=== PATIENT | male | born 1960 | race Caucasian/White ===

== ENCOUNTER → 2020-10-27 08:04 | Outpatient (BNVA) | payer MEDICARE, OTHER, SELFPAY | PROVIDERS: PCP Internal Medicine Medical Oncology; Visit Provider Family Medicine Adult Medicine | DX: M54.16 Radiculopathy, lumbar region (principal); M47.816 Spondylosis without myelopathy or radiculopathy, lumbar region | CPT/HCPCS: 99202 ==

== ENCOUNTER → 2020-11-12 08:33 | Outpatient (BNVA) | payer MEDICARE, OTHER, SELFPAY | PROVIDERS: PCP Internal Medicine Medical Oncology; Referring Provider Internal Medicine Medical Oncology; Visit Provider Family Medicine Adult Medicine | DX: M54.16 Radiculopathy, lumbar region (principal); M47.816 Spondylosis without myelopathy or radiculopathy, lumbar region | CPT/HCPCS: 99212 ==

== ENCOUNTER → 2020-11-13 08:48 | Outpatient (BNVA) | payer MEDICARE, OTHER, SELFPAY | PROVIDERS: PCP Internal Medicine Medical Oncology; Visit Provider Family Medicine Adult Medicine | DX: Z51.81 Encounter for therapeutic drug level monitoring (principal); R52 Pain, unspecified | CPT/HCPCS: 99212 ==

== ENCOUNTER → 2020-12-22 08:27 | Outpatient (BNVA) | payer MEDICARE, OTHER, SELFPAY | PROVIDERS: PCP Internal Medicine Medical Oncology; Visit Provider Nurse Practitioner Family | DX: M54.16 Radiculopathy, lumbar region (principal); M47.816 Spondylosis without myelopathy or radiculopathy, lumbar region; Z79.899 Other long term (current) drug therapy | CPT/HCPCS: 99212 ==

== ENCOUNTER → 2021-01-19 08:38 | Outpatient (BNVA) | payer MEDICARE, OTHER, SELFPAY | PROVIDERS: PCP Internal Medicine Medical Oncology; Visit Provider Family Medicine Adult Medicine ==

== ENCOUNTER 2021-02-17 10:31 | Outpatient (REF) | payer MEDICARE, OTHER, SELFPAY | END 2021-02-17 10:32 | disposition home or self-care (01) | LOC: HO.LAB 10:31 | PROVIDERS: Visit Provider Internal Medicine | DX: Z20.822 Contact with and (suspected) exposure to COVID-19 (principal) | CPT/HCPCS: 36415; C9803; U0003; U0005 ==

== ENCOUNTER → 2021-05-24 14:18 | Outpatient (BNVA) | payer MEDICARE, OTHER, SELFPAY | PROVIDERS: PCP Internal Medicine Medical Oncology; Visit Provider Anesthesiology | DX: G89.4 Chronic pain syndrome (principal); M47.26 Other spondylosis with radiculopathy, lumbar region; K85.00 Idiopathic acute pancreatitis without necrosis or infection; Z88.2 Allergy status to sulfonamides; Z91.030 Bee allergy status; Z79.891 Long term (current) use of opiate analgesic | CPT/HCPCS: 99212 ==

== ENCOUNTER → 2021-08-23 16:09 | Outpatient (BNVA) | payer MEDICARE, OTHER, SELFPAY | PROVIDERS: PCP Internal Medicine Medical Oncology; Visit Provider Anesthesiology | DX: K85.00 Idiopathic acute pancreatitis without necrosis or infection (principal); M54.16 Radiculopathy, lumbar region; M47.816 Spondylosis without myelopathy or radiculopathy, lumbar region; G89.4 Chronic pain syndrome; Z79.891 Long term (current) use of opiate analgesic | CPT/HCPCS: 99212 ==

== ENCOUNTER 2021-09-07 06:16 | Outpatient (REF) | payer MEDICARE, OTHER, SELFPAY ==
--- NOTE | ~2021-09-07 | FL_ITS ---
EXAMINATION: XR FLUOROSCOPY WITH IMAGES CLINICAL INFORMATION: Chronic pain syndrome. COMPARISON: MRI of the lumbar spine dated 08/05/2015. TECHNIQUE: Fluoroscopy performed by Dr. Burger. Fluoroscopy time: 0.2 minutes DAP: 2.71 Gycm2 Images: 2 FL/FL guidance in treatment room FINDINGS/IMPRESSION: Fluoroscopy was performed for procedural guidance. Please refer to the procedure report for more detailed findings.
== END 2021-09-07 06:17 | disposition home or self-care (01) ==
LOC: HO.RADIR 06:16
PROVIDERS: Visit Provider Anesthesiology
DX: K85.00 Idiopathic acute pancreatitis without necrosis or infection (principal); M54.16 Radiculopathy, lumbar region; G89.4 Chronic pain syndrome; M47.816 Spondylosis without myelopathy or radiculopathy, lumbar region; Z79.891 Long term (current) use of opiate analgesic
CPT/HCPCS: 62323; J2270; Q9967

== ENCOUNTER 2023-10-26 10:01 | Outpatient (AMB) | payer MEDICARE, OTHER, SELFPAY ==
--- NOTE | 2023-10-26 16:11 | MHC.AM.SUB ---
Intake Intake Visit Reasons: MAT Intake Allergies bee stings Allergy (Unknown, Uncoded 10/27/20 08:13) Anaphylaxis sulfa Allergy (Unknown, Uncoded 10/27/20 08:13) serum sickness Medication List - Last Reconciled 10/26/23 by Briseida Jimenez NP epinephrine IM DIRECTED fentanyl 75 mcg/hr 1 patch transdermal Q72H oxycodone 5 mg PO Q12H PRN 30 days prednisone 5 mg PO DAILY HPI MAT Intake HPI Details Pt presents as a referral from Dr. Downing (PCP) He reports his PCP will soon be retiring and will no longer be able to manage his pain. 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 Review of Systems Const Reports as per HPI GI Reports abdominal pain (chronic) Musc Reports back pain (chronic) Psych Reports no additional complaints Physical Exam Const General: cooperative, healthy appearing and no acute distress Orientation/consciousness: patient oriented x3 Resp Effort & Inspection: normal respiratory effort Neuro General: patient oriented x3 and gait normal Psych Appearance: grossly normal Mental Status: mental status grossly normal Speech and movement: Normal speech and movement present Affect: normal affect Attitude: cooperative Insight: Good insight present (Psych) Judgement: Good judgement present (Psych) Assessment & Plan Assessment & Plan (1) Opioid dependence: Code(s): F11.20 - Opioid dependence, uncomplicated Plan: He is agreeable to starting the standard suboxone induction. He has an apt at [facility] next Monday, plan is to start induction the following day. Narcan provided to pt Suboxone films and comfort meds sent to pharmacy Reviewed and wrote down the plan for induction day- pt to call office before he starts with any questions. Medications: New ondansetron 4 mg PO Q8H PRN 30 tabs 0RF nausea and vomiting hydroxyzine HCl 25 mg PO TID PRN 30 tabs 0RF itching tizanidine 4 mg PO TID PRN 30 caps 0RF muscle spasticity buprenorphine-naloxone 8-2 mg (Suboxone) To be started after induction with 4mg films. 1 film buccal TID 18 ea 0RF clonidine HCl 0.1 mg PO BID 14 tabs 0RF buprenorphine-naloxone 4-1 mg (Suboxone) place 1 strip/tab under (each) side of tongue 1 film buccal Q24H 8 ea 0RF Coding Level of Care Code New Pt Level 4 (21050) Diagnoses Opioid dependence F11.20
== END 2023-10-26 11:18 | disposition home or self-care (01) ==
PROVIDERS: PCP Internal Medicine Medical Oncology; Visit Provider Nurse Practitioner Family
DX: F11.20 Opioid dependence, uncomplicated (principal)
CPT/HCPCS: 99204; 99214

== ENCOUNTER → 2023-10-26 10:01 | Outpatient (BNVA) | payer MEDICARE, OTHER, SELFPAY | PROVIDERS: PCP Internal Medicine Medical Oncology; Visit Provider Nurse Practitioner Family | DX: F11.20 Opioid dependence, uncomplicated (principal) | CPT/HCPCS: 99202 ==

== ENCOUNTER 2023-11-13 10:19 | Outpatient (AMB) | payer MEDICARE, OTHER, SELFPAY ==
--- NOTE | 2023-11-13 10:50 | MHC.AM.SUB ---
Intake Vital Signs 11/13/23 10:51 Respiration 15 Intake Visit Reasons: MAT Visit Allergies bee stings Allergy (Unknown, Uncoded 10/27/20 08:13) Anaphylaxis sulfa Allergy (Unknown, Uncoded 10/27/20 08:13) serum sickness HPI MAT Visit HPI Details Patient presents for MAT treatment and follow up Taking suboxone 8mg bid Reports no cravings at this time Says the suboxone has been helpful for reducing pain. Reports occasional wooziness otherwise no concern for side effects Encouraged pt to try cutting his films and taking 4mg qid to see if that alleviates nausea. Pt agreeable to this. Feels satisfied with his dose at the time and would not like to change it Asking about tapering in the future- he does not feel ready yet but feels as though that is something he would like to do at some point. 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 Review of Systems Const Reports as per HPI GI Reports nausea Physical Exam Const General: cooperative, comfortable and no acute distress Resp Effort & Inspection: normal respiratory effort Skin General skin exam: no rashes or lesions noted Psych Appearance: grossly normal and well kempt Mental Status: mental status grossly normal Speech and movement: Normal speech and movement present Attitude: cooperative Assessment & Plan Assessment & Plan (1) Opioid dependence: Code(s): F11.20 - Opioid dependence, uncomplicated Plan: Continue Suboxone dose Requested labwork from pt PCP- office to fax Follow up 1 week via telehealth Medications: Changed From buprenorphine-naloxone 8-2 mg (Suboxone) To be started after induction with 4mg films. 1 film buccal TID 18 ea 0RF To buprenorphine-naloxone 8-2 mg (Suboxone) 1 film buccal BID 18 ea 0RF Discontinued oxycodone Discontinued Reason: Patient no longer taking 5 mg PO Q12H 30 days PRN 60 tabs 0RF pain M47.816 - Spondylosis without myelopathy or radiculopathy, lumbar region, M54.16 - Radiculopathy, lumbar region buprenorphine-naloxone 4-1 mg (Suboxone) place 1 strip/tab under (each) side of tongue Discontinued Reason: Patient no longer taking 1 film buccal Q24H 8 ea 0RF Coding Level of Care Code Est Pt Level 3 (51882) Diagnoses Opioid dependence F11.20
[2023-11-13 10:51] VITALS: RESP 15
== END 2023-11-13 10:55 | disposition home or self-care (01) ==
PROVIDERS: PCP Internal Medicine Medical Oncology; Visit Provider Nurse Practitioner Family
DX: F11.20 Opioid dependence, uncomplicated (principal)
CPT/HCPCS: 99213

== ENCOUNTER → 2023-11-13 10:19 | Outpatient (BNVA) | payer MEDICARE, OTHER, SELFPAY | PROVIDERS: PCP Internal Medicine Medical Oncology; Visit Provider Nurse Practitioner Family | DX: F11.20 Opioid dependence, uncomplicated (principal) | CPT/HCPCS: 99212 ==

== ENCOUNTER 2023-11-22 13:00 | Outpatient (AMB) | payer MEDICARE, OTHER, SELFPAY ==
--- NOTE | 2023-11-22 14:19 | A.OFFVISCC_ITS ---
Intake Intake Visit Reasons: MAT Visit Allergies bee stings Allergy (Unknown, Uncoded 10/27/20 08:13) Anaphylaxis sulfa Allergy (Unknown, Uncoded 10/27/20 08:13) serum sickness HPI HPI Comments History of Present Illness Details Patient presents via telehealth for ALAN treatment and follow up He reports having abd pain which is baseline for him Brisk with his responses and noticeably irritable edge. He is unsure at this time which direction he would like to head with his treatment He disclosed he did not end up seeing his specialist at [facility] that he was supposed to see for his chronic abd pain. Appt was 2 weeks ago. He expressed frustration no one from counseling has reached out to him yet. Referral was placed 11/16, t/w assured pt his referral had been sent and someone will be reaching out to him. 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 Telehealth Telehealth Location of provider rendering services: practice address Location of patient: address on file Patient Identification confirmed using: Name, : Yes Telehealth method: voice only Patient verbally consented to treatment: Yes Patient verbally consented to billing insurance company: Yes Patient informed of any privacy concerns related to visit: Yes Coding Level of Care Code Tele Est Pt Level 3 (81099) Diagnoses Opioid dependence F11.20
== END 2023-11-22 13:43 | disposition home or self-care (01) ==
PROVIDERS: PCP Internal Medicine Medical Oncology; Visit Provider Nurse Practitioner Family
DX: F11.20 Opioid dependence, uncomplicated (principal)
CPT/HCPCS: 99441

== ENCOUNTER → 2023-11-22 13:00 | Outpatient (BNVA) | payer MEDICARE, OTHER, SELFPAY | PROVIDERS: PCP Internal Medicine Medical Oncology; Visit Provider Nurse Practitioner Family ==

== ENCOUNTER 2023-11-30 10:00 | Outpatient (AMB) | payer MEDICARE, OTHER, SELFPAY ==
[2023-11-30 10:17] VITALS: BP 164/92; RESP 18
--- NOTE | 2023-11-30 10:17 | AM.OFFVISNUR ---
Intake Vital Signs 11/30/23 10:17 BP 164/92 H Blood Pressure Location Rt brachial Position Sitting Respiration 18 Intake Visit Reasons: mat visit Allergies bee stings Allergy (Unknown, Uncoded 10/27/20 08:13) Anaphylaxis sulfa Allergy (Unknown, Uncoded 10/27/20 08:13) serum sickness Coding
--- NOTE | 2023-11-30 10:22 | MHC.AM.SUB ---
Intake Vital Signs 11/30/23 10:17 BP 164/92 H Blood Pressure Location Rt brachial Position Sitting Respiration 18 Intake Visit Reasons: mat visit Allergies bee stings Allergy (Unknown, Uncoded 10/27/20 08:13) Anaphylaxis sulfa Allergy (Unknown, Uncoded 10/27/20 08:13) serum sickness HPI mat visit HPI Details Pt presents for OUD treatment and follow up He reports he continues to have intermittent abdominal pain. He is taking 8mg bid at this time, discussed with patient trying to split his dose to take 6mg-4mg-6mg (tid). He is open to trying this to see if it manages pain and cravings better. He plans to re-start physical therapy and start going to the [facility] to swim 3-4 times a week. He does feel depressed most days, feels as though his pain prevents him from doing many of the things he would like to do. He denies SI, says he occasionally thinks about it when the pain is especially bad- however he reports he has no plan, has no active SI thoughts at this time, and promised his he wouldn't do anything to hurt himself He is currently taking sertraline 25mg prescribed by his PCP, he feels little to no effect. He has been taking the sertraline for 1 year with no complications. He denies personal or family history of bipolar depression. He is experiencing mild constipation that he is taking docusate and miralax for with good effect. Last bowel movement was today. 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 1. Little interest or pleasure in doing things: several days 2. Feeling down, depressed, or hopeless: more than half the days 3. Trouble falling or staying asleep, or sleeping too much: not at all 4. Feeling tired or having little energy: not at all 5. Poor appetite or overeating: more than half the days 6. Feeling bad about yourself - or that you are a failure or have let yourself or your family down: not at all 7. Trouble concentrating on things, such as reading the newspaper or watching television: nearly every day 8. Moving or speaking so slowly that other people could have noticed. Or the opposite - being so fidgety or restless that you have been moving around a lot more than usual: not at all 9. Thoughts that you would be better off or of hurting yourself in some way: several days Total score: 9 Depression Screening Interpretation: Positive Depression Screening Done: Yes [id number] - PHQ-9 Billing: Yes Source: Developed by Drs. Tito Montgomery, Sonia Lim, Vinayak Lira and colleagues, with an educational adalberto from [employer]. Review of Systems Const Reports as per HPI GI Reports abdominal pain (chronic) and Reports constipation Physical Exam Vital Signs: Last Vital Signs Resp 18 11/30/23 10:17 BP 164/92 H 11/30/23 10:17 Const General: cooperative and no acute distress Resp Effort & Inspection: normal respiratory effort Psych Appearance: grossly normal Speech and movement: Normal speech and movement present Affect: normal affect Attitude: cooperative Thought content: suicidality, no homicidality and Depressive thoughts present Assessment & Plan Assessment & Plan (1) Opioid dependence: Code(s): F11.20 - Opioid dependence, uncomplicated Qualifiers: Substance use status: uncomplicated Qualified Code(s): F11.20 - Opioid dependence, uncomplicated Plan: -Change dose/administration from 8mg bid to tid : 6mg, 4mg, 6mg -Harm reduction discussion -Follow up 1 week (2) Mild depressive disorder: Code(s): F32.A - Depression, unspecified Plan: -Increase sertaline from 25mg to 50mg -PHQ9 positive for mild depression with score of 9 -Disccused with patient to call crisis or 911 if he feels like he may harm someone else or himself -[facility] referral faxed over from [facility] office Medications: New buprenorphine-naloxone 12-3 mg 1 film buccal Q24H 7 ea 0RF sertraline 50 mg PO DAILY 30 tabs 0RF buprenorphine-naloxone 4-[address] 1 strip/tab under (each) side of tongue 1 film buccal Q24H 7 ea 0RF Discontinued buprenorphine-naloxone 8-2 mg (Suboxone) Discontinued Reason: More recent result 1 film buccal BID 14 ea 0RF Coding Level of Care Code Est Pt Level 4 (80023) Diagnoses Uncomplicated opioid dependence F11.20 Substance use status: uncomplicated Mild depressive disorder F32.A
== END 2023-11-30 11:19 | disposition home or self-care (01) ==
PROVIDERS: PCP Internal Medicine Medical Oncology; Visit Provider Nurse Practitioner Family
DX: F11.20 Opioid dependence, uncomplicated (principal); F32.A Depression, unspecified
CPT/HCPCS: 99214

== ENCOUNTER → 2023-11-30 10:00 | Outpatient (BNVA) | payer MEDICARE, OTHER, SELFPAY | PROVIDERS: PCP Internal Medicine Medical Oncology; Visit Provider Nurse Practitioner Family | DX: F11.20 Opioid dependence, uncomplicated (principal); F32.A Depression, unspecified | CPT/HCPCS: 99212 ==

== ENCOUNTER 2023-12-07 10:01 | Outpatient (AMB) | payer MEDICARE, OTHER, SELFPAY ==
--- NOTE | 2023-12-07 10:18 | MHC.AM.SUB ---
Intake Intake Visit Reasons: mat visit Allergies bee stings Allergy (Unknown, Uncoded 10/27/20 08:13) Anaphylaxis sulfa Allergy (Unknown, Uncoded 10/27/20 08:13) serum sickness HPI mat visit HPI Details Patient presents via telehealth for OUD treatment and follow up He reports it has been a tough week for him in regards to his chronic abd pain. He reports he still has no follow up with GI. He reports an improvement in his mood he attributes to the increase in sertraline. He has been taking suboxone this past week 6mg bid and 4 mg in the mid afternoon. 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 Review of Systems Const Reports as per HPI GI Reports abdominal pain (chronic) Assessment & Plan Assessment & Plan (1) Opioid dependence: Code(s): F11.20 - Opioid dependence, uncomplicated Qualifiers: Substance use status: uncomplicated Qualified Code(s): F11.20 - Opioid dependence, uncomplicated Plan: -Suboxone dosing adjusted to 8mg bid with 4mg mid afternoon -Discussed with patient trialing probiotics for his abdominal pain, he is agreeable to this, encouraged patient to obtain probiotics with the most strains he could find, and to try and get probiotics with lactobacillus to potentially help with gut inflammation. -Follow up 1 week Medications: New buprenorphine-naloxone 8-2 mg 1 film buccal DAILY 14 ea 0RF Refilled buprenorphine-naloxone 4-[address] 1 strip/tab under (each) side of tongue 1 film buccal Q24H 7 ea 0RF Discontinued buprenorphine-naloxone 12-3 mg Discontinued Reason: Patient Completed Course 1 film buccal Q24H 7 ea 0RF Telehealth Telehealth Location of provider rendering services: practice address Location of patient: address on file Patient Identification confirmed using: Name, : Yes Telehealth method: voice only Patient verbally consented to treatment: Yes Patient verbally consented to billing insurance company: Yes Patient informed of any privacy concerns related to visit: Yes Coding Level of Care Code Tele Est Pt Level 3 (32095) Diagnoses Uncomplicated opioid dependence F11.20 Substance use status: uncomplicated
== END 2023-12-07 10:18 | disposition home or self-care (01) ==
PROVIDERS: PCP Internal Medicine Medical Oncology; Visit Provider Nurse Practitioner Family
DX: F11.20 Opioid dependence, uncomplicated (principal)
CPT/HCPCS: 99441

== ENCOUNTER → 2023-12-07 10:01 | Outpatient (BNVA) | payer MEDICARE, OTHER, SELFPAY | PROVIDERS: PCP Internal Medicine Medical Oncology; Visit Provider Nurse Practitioner Family ==

== ENCOUNTER 2023-12-18 11:00 | Outpatient (AMB) | payer MEDICARE, OTHER, SELFPAY ==
--- NOTE | 2023-12-18 11:01 | A.OFFVISCC_ITS ---
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 Allergies bee stings Allergy (Unknown, Uncoded 12/18/23 11:07) Anaphylaxis sulfa Allergy (Unknown, Uncoded 12/18/23 11:07) serum sickness Do you need a note to return to daycare/school/sports/work: No HPI mat visit HPI Details Patient presents to clinic today for OUD tx and follow up He endorses occasional sweating occurring during the night/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 He has not been taking his films in a consistent scheduled way Denies any med related side effects Reports his mood has been improved since increase in sertraline Has no other concerns today, is asking if he has to come to the clinic now forever [facility] Medical History (Updated 11/30/23 @ 11:44 by Briseida Jimenez NP) 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 Chronic pain syndrome Idiopathic pancreatitis Lumbar radiculopathy Lumbar spondylosis Social History (Updated 10/27/20 @ 08:27 by Yonny Umana DO) Household Members Other:: lives with and stepson Alcohol intake: never 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 Review of Systems Const Reports as per HPI Physical Exam Vital Signs: Last Vital Signs Pulse 88 12/18/23 11:06 BP 138/84 12/18/23 11:06 Pulse Ox 98 12/18/23 11:06 Oxygen Delivery Method Room Air 12/18/23 11:06 Const General: cooperative and no acute distress Resp Effort & Inspection: normal respiratory effort Psych Appearance: grossly normal Mental Status: mental status grossly normal Speech and movement: Normal speech and movement present Affect: normal affect (irritable at times) Attitude: cooperative Thought process: Normal thought process present Thought content: Normal thought content present Assessment & Plan Assessment & Plan (1) Opioid dependence: Code(s): F11.20 - Opioid dependence, uncomplicated Qualifiers: Substance use status: uncomplicated Qualified Code(s): F11.20 - Opioid dependence, uncomplicated Plan: -Continue suboxone at current dose -Follow up 2 weeks via telehealth Coding Level of Care Code Est Pt Level 3 (09165) Diagnoses Uncomplicated opioid dependence F11.20 Substance use status: uncomplicated
[2023-12-18 11:06] VITALS: BP 138/84; PULSE 88; O2SAT 98
== END 2023-12-18 11:33 | disposition home or self-care (01) ==
PROVIDERS: PCP Internal Medicine Medical Oncology; Visit Provider Nurse Practitioner Family
DX: F11.20 Opioid dependence, uncomplicated (principal)
CPT/HCPCS: 99213

== ENCOUNTER → 2023-12-18 11:00 | Outpatient (BNVA) | payer MEDICARE, OTHER, SELFPAY | PROVIDERS: PCP Internal Medicine Medical Oncology; Visit Provider Nurse Practitioner Family | DX: F11.20 Opioid dependence, uncomplicated (principal) | CPT/HCPCS: 99212 ==

== ENCOUNTER 2023-12-27 09:23 | Outpatient (AMB) | payer MEDICARE, OTHER, SELFPAY ==
--- NOTE | 2023-12-27 09:30 | A.OFFVISCC_ITS ---
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 He reports skipping his 4mg midday dose for the past few days due to these concerns, and has been feeling unwell as a result. 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 Review of Systems Const Reports as per HPI GI Reports abdominal pain Musc Reports back pain Psych Reports no additional complaints, Denies homicidal ideation and Denies suicidal ideation Physical Exam Vital Signs: Last Vital Signs Pulse 95 12/27/23 09:31 BP 180/90 H 12/27/23 09:31 Pulse Ox 98 12/27/23 09:31 Oxygen Delivery Method Room Air 12/27/23 09:31 Const General: cooperative and no acute distress Nutritional Appearance: average body habitus Resp Effort & Inspection: normal respiratory effort and able to speak in complete sentences Skin General skin exam: no rashes or lesions noted Psych Appearance: grossly normal Mental Status: mental status grossly normal Speech and movement: Normal speech and movement present Affect: normal affect Attitude: Guarded attititude/behavior present Assessment & Plan Assessment & Plan (1) Opioid dependence: Code(s): F11.20 - Opioid dependence, uncomplicated Qualifiers: Substance use status: uncomplicated Qualified Code(s): F11.20 - Opioid dependence, uncomplicated Plan: -Suboxone films changed to tablets to address patients dental concerns which he is agreeable to at this time -Dose adjusted 8mg bid 4mg midday to address pain and withdrawal symptoms -Discussed good dental hygiene -Discussed with patient risk/benefits to taking the medication -Discussed with him to rinse his mouth after 15 minutes post medication administration (2) Mild depressive disorder: Code(s): F32.A - Depression, unspecified Plan: -Refill for sertraline sent to pharmacy -Patient has been referred to [facility], he is still waiting for an intake Medications: New buprenorphine HCl 8 mg sublingual BID 14 tabs 0RF NS buprenorphine-naloxone 2-0.5 mg 2 tabs sublingual DAILY 14 tabs 0RF NS Refilled sertraline 50 mg PO DAILY 30 tabs 0RF Discontinued buprenorphine-naloxone 4-1 mg Discontinued Reason: None 1 film buccal Q24H 14 ea 0RF buprenorphine-naloxone 8-2 mg Discontinued Reason: None 1 film buccal DAILY 14 ea 0RF Coding Level of Care Code Est Pt Level 3 (41658) Diagnoses Uncomplicated opioid dependence F11.20 Substance use status: uncomplicated Mild depressive disorder F32.A
[2023-12-27 09:31] VITALS: BP 180/90; PULSE 95; O2SAT 98
== END 2023-12-27 09:56 | disposition home or self-care (01) ==
PROVIDERS: PCP Internal Medicine Medical Oncology; Visit Provider Nurse Practitioner Family
DX: F11.20 Opioid dependence, uncomplicated (principal); F32.A Depression, unspecified
CPT/HCPCS: 99214

== ENCOUNTER → 2023-12-27 09:23 | Outpatient (BNVA) | payer MEDICARE, OTHER, SELFPAY | PROVIDERS: PCP Internal Medicine Medical Oncology; Visit Provider Nurse Practitioner Family | DX: F11.20 Opioid dependence, uncomplicated (principal); F32.A Depression, unspecified | CPT/HCPCS: 99212 ==

== ENCOUNTER 2024-01-03 13:05 | Outpatient (AMB) | payer MEDICARE, OTHER, SELFPAY ==
--- NOTE | 2024-01-03 13:18 | MHC.AM.SUB ---
Intake Intake Visit Reasons: mat visit Allergies bee stings Allergy (Unknown, Uncoded 12/27/23 09:30) Anaphylaxis sulfa Allergy (Unknown, Uncoded 12/27/23 09:30) serum sickness HPI mat visit HPI Details Pt presents via telehealth for follow up Reports the pills were intolerable tasting and he preferred the films Reports he still has abd pain (chronic), some days worse than others He is thinking about getting in contact with his GI specialist to explore tx options He reports his and son have covid [facility] Medical History (Updated 11/30/23 @ 11:44 by Briseida Jimenez NP) 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 Chronic pain syndrome Idiopathic pancreatitis Lumbar radiculopathy Lumbar spondylosis Social History (Updated 10/27/20 @ 08:27 by Yonny Umana DO) Household Members Other:: lives with and stepson Alcohol intake: never 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 Will refill Friday 01/05 as Sunday 01/07 should be his last day of films -Follow up 2 weeks Telehealth Telehealth Location of provider rendering services: practice address Location of patient: address on file Patient Identification confirmed using: Name, : Yes Telehealth method: voice only Patient verbally consented to treatment: Yes Patient verbally consented to billing insurance company: Yes Patient informed of any privacy concerns related to visit: Yes Minutes spent on Phone/Video with Pt.: 15 Coding Level of Care Code Tele Est Pt Level 2 (17817) Diagnoses Uncomplicated opioid dependence F11.20 Substance use status: uncomplicated
== END 2024-01-03 15:13 | disposition home or self-care (01) ==
PROVIDERS: PCP Internal Medicine Medical Oncology; Visit Provider Nurse Practitioner Family
DX: F11.20 Opioid dependence, uncomplicated (principal)
CPT/HCPCS: 99442

== ENCOUNTER → 2024-01-03 13:05 | Outpatient (BNVA) | payer MEDICARE, OTHER, SELFPAY | PROVIDERS: PCP Internal Medicine Medical Oncology; Visit Provider Nurse Practitioner Family ==

== ENCOUNTER 2024-01-22 09:05 | Outpatient (AMB) | payer MEDICARE, OTHER, SELFPAY ==
--- NOTE | 2024-01-22 10:02 | A.OFFVISCC_ITS ---
Intake Intake Visit Reasons: mat visit Allergies bee stings Allergy (Unknown, Uncoded 12/27/23 09:30) Anaphylaxis sulfa Allergy (Unknown, Uncoded 12/27/23 09:30) serum sickness HPI mat visit HPI Details Patient presents via telehealth for treatment and follow up He reports his family is on the mend, he did not get covid with the rest of them He has an intake appointment this week with [facility] Reports his mood has been ok with the sertraline Denies concerns about suboxone at this time Reports chronic epigastric pain persists, he is waiting on his specialist to get back to him [facility] Medical History (Updated 11/30/23 @ 11:44 by Briseida Jimenez NP) 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 Chronic pain syndrome Idiopathic pancreatitis Lumbar radiculopathy Lumbar spondylosis Social History (Updated 10/27/20 @ 08:27 by Yonny Umana DO) Household Members Other:: lives with and stepson Alcohol intake: never 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 Review of Systems [employer] Reports as per HPI Assessment & Plan Assessment & Plan (1) Opioid dependence: Code(s): F11.20 - Opioid dependence, uncomplicated Qualifiers: Substance use status: uncomplicated Qualified Code(s): F11.20 - Opioid dependence, uncomplicated Plan: -Continue suboxone at current dose -Mass pat reviewed -Follow up 1 month Medications: Refilled buprenorphine-naloxone 4-[address] 1 strip/tab under (each) side of tongue 1 film buccal Q24H 30 ea 0RF buprenorphine-naloxone 8-2 mg 1 film buccal BID 60 ea 0RF Telehealth Telehealth Location of provider rendering services: practice address Location of patient: address on file Patient Identification confirmed using: Name, : Yes Telehealth method: voice only Patient verbally consented to treatment: Yes Patient verbally consented to billing insurance company: Yes Patient informed of any privacy concerns related to visit: Yes Minutes spent on Phone/Video with Pt.: 10 Coding Level of Care Code Tele Est Pt Level 2 (69094) Diagnoses Uncomplicated opioid dependence F11.20 Substance use status: uncomplicated Time Spent (min) 20
== END 2024-01-22 09:18 | disposition home or self-care (01) ==
PROVIDERS: PCP Internal Medicine Medical Oncology; Visit Provider Nurse Practitioner Family
DX: F11.20 Opioid dependence, uncomplicated (principal)
CPT/HCPCS: 99442

== ENCOUNTER → 2024-01-22 09:05 | Outpatient (BNVA) | payer MEDICARE, OTHER, SELFPAY | PROVIDERS: PCP Internal Medicine Medical Oncology; Visit Provider Nurse Practitioner Family | DX: F11.20 Opioid dependence, uncomplicated (principal) ==

== ENCOUNTER 2024-03-15 09:58 | Outpatient (AMB) | payer MEDICARE, OTHER, SELFPAY ==
--- NOTE | 2024-03-15 12:28 | A.OFFVISCC_ITS ---
Intake Visit Reasons: MAT Visit Allergies bee stings Allergy (Unknown, Uncoded 12/27/23 09:30) Anaphylaxis sulfa Allergy (Unknown, Uncoded 12/27/23 09:30) serum sickness HPI HPI MAT Visit: Details: Patient presents via telehealth Was unable to make his appointment in office due to acute on chronic abd pain He recently established care with a pain clinic He is under care of Dr. Pr[facility] Says the doctor is likely going to start him back on narcotics Pt stating he will notify this screenplay writer of any changes in treatment plan States his sertraline has been helpful, but he continues to have some residual depression due to his chronic pain [facility] Medical History (Updated 11/30/23 @ 11:44 by Briseida Jimenez NP) [facility] (current) use of opiate analgesic Chronic pain syndrome Idiopathic pancreatitis Lumbar radiculopathy Lumbar spondylosis Social History (Updated 10/27/20 @ 08:27 by Yonny Umana DO) Household Members Other:: lives with and stepson Alcohol intake: never 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 Review of Systems [employer] Reports as per HPI Telehealth Telehealth Location of provider rendering services: practice address Location of patient: address on file Patient Identification confirmed using: Name, : Yes Telehealth method: voice only Patient verbally consented to treatment: Yes Patient verbally consented to billing insurance company: Yes Patient informed of any privacy concerns related to visit: Yes Minutes spent on Phone/Video with Pt.: 15 Assessment & Plan Assessment & Plan (1) Mild depressive disorder: Code(s): F32.A - Depression, unspecified Category: Medical Plan: -Increase sertraline to 75mg daily -Counseling referral pending (2) Opioid dependence: Code(s): F11.20 - Opioid dependence, uncomplicated Category: Medical Qualifiers: Substance use status: uncomplicated Qualified Code(s): F11.20 - Opioid dependence, uncomplicated Plan: -Mass pat reviewed -Refill sent for suboxone -Follow up 4 weeks Medications: Changed From sertraline 50 mg PO DAILY 30 tabs 0RF To sertraline 75 mg (1.5 x 50 mg) PO DAILY 45 tabs 0RF Refilled buprenorphine-naloxone 8-2 mg 1 film buccal BID 60 ea 0RF buprenorphine-naloxone 4-[address] 1 strip/tab under (each) side of tongue 1 film buccal Q24H 30 ea 0RF
== END 2024-03-15 10:19 | disposition home or self-care (01) ==
LOC: HO.HCC 09:58
PROVIDERS: PCP Internal Medicine Medical Oncology; Visit Provider Nurse Practitioner Family
DX: F11.20 Opioid dependence, uncomplicated (principal); F32.1 Major depressive disorder, single episode, moderate
CPT/HCPCS: 99442

== ENCOUNTER → 2024-03-15 09:58 | Outpatient (BNVA) | payer MEDICARE, OTHER, SELFPAY | PROVIDERS: PCP Internal Medicine Medical Oncology; Visit Provider Nurse Practitioner Family ==

== ENCOUNTER 2024-05-06 13:58 | Outpatient (AMB) | payer MEDICARE, OTHER, SELFPAY ==
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
[2024-05-06 14:04] VITALS: BP 150/78; PULSE 112; RESP 16
== END 2024-05-06 14:30 | disposition home or self-care (01) ==
PROVIDERS: PCP Internal Medicine Medical Oncology; Visit Provider Nurse Practitioner Family
DX: F11.20 Opioid dependence, uncomplicated (principal)
CPT/HCPCS: 99213

== ENCOUNTER → 2024-05-06 13:58 | Outpatient (BNVA) | payer MEDICARE, OTHER, SELFPAY | PROVIDERS: PCP Internal Medicine Medical Oncology; Visit Provider Nurse Practitioner Family | DX: F11.20 Opioid dependence, uncomplicated (principal) | CPT/HCPCS: 99212 ==

== ENCOUNTER 2024-07-19 09:55 | Outpatient (AMB) | payer MEDICARE, OTHER, SELFPAY ==
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
== END 2024-07-19 10:30 | disposition home or self-care (01) ==
PROVIDERS: PCP Internal Medicine Medical Oncology; Visit Provider Nurse Practitioner Psychiatric/Mental Health
DX: F11.20 Opioid dependence, uncomplicated (principal)
CPT/HCPCS: 99213

== ENCOUNTER → 2024-07-19 09:55 | Outpatient (BNVA) | payer MEDICARE, OTHER, SELFPAY | PROVIDERS: PCP Internal Medicine Medical Oncology; Visit Provider Nurse Practitioner Psychiatric/Mental Health | DX: F11.20 Opioid dependence, uncomplicated (principal); Z51.81 Encounter for therapeutic drug level monitoring | CPT/HCPCS: 99212 ==

== ENCOUNTER 2024-09-13 09:01 | Outpatient (AMB) | payer MEDICARE, OTHER, SELFPAY ==
--- NOTE | 2024-09-13 09:00 | A.OFFVISCC_ITS ---
Intake Visit Reasons: MAT Tele Allergies bee stings Allergy (Unknown, Uncoded 12/27/23 09:30) Anaphylaxis sulfa Allergy (Unknown, Uncoded 12/27/23 09:30) serum sickness HPI HPI MAT Tele: Details: Patient presents for follow up via telehealth Reports that he is planning to start ketmaine as a way to manage pain He does not have a start date for this, but reports he will be tapering off of buprenorphine once he does He does not feel suboxone is effective for his pain [facility] Medical History (Updated 11/30/23 @ 11:44 by Briseida Jimenez NP) correction (current) use of opiate analgesic Chronic pain syndrome Idiopathic pancreatitis Lumbar radiculopathy Lumbar spondylosis Social History (Updated 10/27/20 @ 08:27 by Yonny Umana DO) Household Members Other:: lives with and stepson Alcohol intake: never 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 Review of Systems [employer] Reports as per HPI Telehealth Telehealth Telehealth Platform: Telephone Location of provider rendering services: practice address Location of patient: address on file Patient Identification confirmed using: Name, : Yes Telehealth method: voice only Patient verbally consented to treatment: Yes Patient verbally consented to billing insurance company: Yes Minutes spent on Phone/Video with Pt.: 15 Assessment & Plan Assessment & Plan (1) Opioid dependence: Code(s): F11.20 - Opioid dependence, uncomplicated Category: Medical Qualifiers: Substance use status: uncomplicated Qualified Code(s): F11.20 - Opioid dependence, uncomplicated Plan: * patient to call and schedule follow up as needed * refill not due at this time
== END 2024-09-13 09:49 | disposition home or self-care (01) ==
PROVIDERS: PCP Internal Medicine Medical Oncology; Visit Provider Nurse Practitioner Psychiatric/Mental Health
DX: F11.20 Opioid dependence, uncomplicated (principal)
CPT/HCPCS: 99442

== ENCOUNTER → 2024-09-13 09:01 | Outpatient (BNVA) | payer MEDICARE, OTHER, SELFPAY | PROVIDERS: PCP Internal Medicine Medical Oncology; Visit Provider Nurse Practitioner Psychiatric/Mental Health ==

== ENCOUNTER 2024-11-13 08:38 | Outpatient (AMB) | payer MEDICARE, OTHER, SELFPAY ==
--- NOTE | 2024-11-13 08:44 | A.OFFVISCC_ITS ---
Intake Visit Reasons: tele Allergies bee stings Allergy (Unknown, Uncoded 12/27/23 09:30) Anaphylaxis sulfa Allergy (Unknown, Uncoded 12/27/23 09:30) serum sickness HPI HPI tele: Details: Patients presents for follow up via telehealth Reports that ketamine trail was not effective, and unfortunately he experienced disassociative effects, which were distressing to him Requesting to increase Suboxone dose to 8mg TID will increase to 8mg BID and 4mg QD midday --with understanding that dose can be increased further if necessary Discussed timing of medication, and not waiting until pain gets very uncomfortable before taking ext dose Discussed taking medication more frequently --same overall dose just increase in frequency Review of Systems Const Reports as per HPI and Reports difficulty sleeping Telehealth Telehealth Telehealth Platform: Telephone Location of provider rendering services: practice address Location of patient: address on file Patient Identification confirmed using: Name, : Yes Telehealth method: voice only Patient verbally consented to treatment: Yes Patient verbally consented to billing insurance company: Yes Patient informed of any privacy concerns related to visit: Yes Minutes spent on Phone/Video with Pt.: 20 Assessment & Plan Assessment & Plan (1) Opioid dependence: Code(s): F11.20 - Opioid dependence, uncomplicated Category: Medical Qualifiers: Substance use status: uncomplicated Qualified Code(s): F11.20 - Opioid dependence, uncomplicated Plan: * increase suboxone to 8mg BID and 4mg midday * reviewed oral health, as this was something patient was previously concerned about * follow up 6 weeks Medications: New buprenorphine-naloxone 4-1 mg (Suboxone) take mid day, in addition to 8mg BID 1 film buccal Q24H 30 ea 1RF PFSH Medical History (Updated 11/30/23 @ 11:44 by Briseida Jimenez NP) [facility] (current) use of opiate analgesic Chronic pain syndrome Idiopathic pancreatitis Lumbar radiculopathy Lumbar spondylosis Social History (Updated 10/27/20 @ 08:27 by Yonny Umana DO) Household Members Other:: lives with and stepson Alcohol intake: never 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
== END 2024-11-13 10:01 | disposition home or self-care (01) ==
PROVIDERS: PCP Internal Medicine Medical Oncology; Visit Provider Nurse Practitioner Psychiatric/Mental Health
DX: F11.20 Opioid dependence, uncomplicated (principal)
CPT/HCPCS: 98967

== ENCOUNTER 2024-12-25 09:02 | Outpatient (AMB) | payer MEDICARE, OTHER, SELFPAY ==
--- NOTE | 2024-12-25 09:03 | A.OFFVISCC_ITS ---
Intake Visit Reasons: tele Allergies bee stings Allergy (Unknown, Uncoded 12/27/23 09:30) Anaphylaxis sulfa Allergy (Unknown, Uncoded 12/27/23 09:30) serum sickness HPI HPI tele: Details: Patient presents for follow up via telehealth Currently prescribed Suboxone 20mg QD Has not been taking 4mg dose --does not want to have to take more than he needs to Often will hold off until he can't any monger to even take regular dosing Discussed hesitation, provided support, encouraged to trial it for 2 weeks consistently to see if it helps Celiac plexus block , waiting on possible mesenteric biopsy Seeing therapist every couple of weeks--reporting worsening depression Increasing stressors at home ( needs to have a mastectomy) Review of Systems Const Reports as per HPI Telehealth Telehealth Telehealth Platform: Telephone Location of provider rendering services: practice address Location of patient: address on file Patient Identification confirmed using: Name, : Yes Telehealth method: voice only Patient verbally consented to treatment: Yes Patient verbally consented to billing insurance company: Yes Minutes spent on Phone/Video with Pt.: 25 [facility] Medical History (Updated 11/30/23 @ 11:44 by Briseida Jimenez NP) 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
--- OUTSIDE RECORDS SUMMARY | 2024-12-25 10:22 | XMS_ITS | Referral Summary ---
Author Organization [facility] Address [address] [place] [address] Care Team Providers Care Manufacturing Executive Name Role Phone Tito Gilbert Primary Care Provider [phone] Allergies Active Allergy Reactions Criticality Noted Date Comments Bee Venom Protein (Honey Bee) Anaphylaxis High 08/09 Sulfamethoxazole-Trimethoprim Rash 2021 Medications EPINEPHrine 0.1 mg/0.1 mL auto-injector Inject 0.1 mg into the shoulder, thigh, or buttocks muscle as directed. 06/22/2022 Active morphine (AVINza) 60 mg 24 hr capsule every 12 (twelve) hours. 05/25/2022 Active LORazepam (ATIVAN) 1 mg tablet every 6 (six) hours. 02/07/2022 Active oxyCODONE IR (ROXICODONE) 5 mg tablet 1 tablet as needed 05/25/2022 Active EPINEPHrine (EPIPEN-JR) 0.15 mg/0.3 mL injection syringe as directed Active Social History Tobacco Use Types Packs/Day Years Used Date Smoking Tobacco: Never Smokeless Tobacco: Never Tobacco Cessation:Counseling Given: Not Answered Alcohol Use Standard Drinks/Week Comments Never 0 (1 standard drink = 0.6 oz pur e alcohol) Sex and Gender Information Value Date Recorded Sex Assigned at Not on file Legal Sex Male 5:15 PM EDT Gender Identity Not on file Sexual Orientation Not on file Plan of Treatment Not on file Insurance MEDICARE [facility] Care Teams Manufacturing Executive Relationship Specialty Start Date End Date Tito Gilbert [address] [place] [address] [address] [place] [address] PCP - General Hematology 07/21/22
--- OUTSIDE RECORDS SUMMARY | 2024-12-25 10:24 | XMS_ITS | Clinical Summary ---
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 Name Role Phone Tito Gilbert MD Primary Care Provider [phone] Social History Tobacco Use Types Packs/Day Years Used Date Smoking Tobacco: Never Assessed Sex and Gender Information Value Date Recorded Sex Assigned at Not on file Legal Sex Male 7:55 PM EDT Gender Identity Not on file Sexual Orientation Not on file Plan of Treatment Health Maintenance Due Date Last Done Comments HIV screening 1971 Hepatitis C screening 1976 Tetanus adult (Td q 10,TDAP once) 1978 Lipid disorder screening 1998 Colon cancer screening, Colonoscopy 2003 Diabetes screening 2003 Shingles vaccine (Shingrix) (1 of 2 - Shingrix (RZV) 2 Dose Standard Series) 2008 Pneumo Vaccine 65+ (1 of 1 - PCV) 2023 Influenza vaccine 06/27/2024 Covid-19 vaccine series ( - season) 2024 RSV Discussion (1 - 1-dose 7 5+ series) 2033 Meningococcal Vaccine Aged Out No noe deanna eligible based on patient's age to complete this topic Insurance MEDICARE COMMERCIAL GENERIC MEDICARE COMMERCIAL GENERIC MEDICARE COMMERCIAL GENERIC Care Teams Dough Brake Machine Operator Relationship Specialty Start Date End Date Tito Gilbert MD [address] [place] [address] [place] [phone] PCP - General Medical Oncology 05/03/24
--- OUTSIDE RECORDS SUMMARY | 2024-12-25 10:24 | XMS_ITS ---
Author Organization Tito Gilbert III, MD Address [address] [place] [address] [address] [place] [address] Care Team Providers Care Inspector Metal Can Name Role Phone Tito Gilbert Primary Care Provider Allergies Allergen (clinical drug ingredient) Drug/Non Drug Allergy documented on EMR Reaction Allergy Type Onset Date Status Bee Sting Unknown Allergy Active sulfamethoxazole / trimethoprim Bactrim rash Drug Allergy Active REASON FOR VISIT Chronic back pain, Chronic abdominal pain, Indeterminate idiopathic pancreatitis, Mesenteric fibrosis Medications Medication SIG (Take, Route, Frequency, Duration) Notes Start Date End Date Status Ondansetron 4 MG 1 tablet on the tong ue and allow to dissolve Orally every 6 hours as needed for nausea 02/05/2024 Active Suboxone 8-2 MG 8mg in the morning, 4mg in the afternoon, 8mg in the evening Sublingual Every 8 hours Active fentaNYL 75 MCG/HR 1 patch to skin Transdermal every 72 hours 10/23/2023 Activ e Readi-Cat 2 2 % take 450 ml Orally o ne time Active EpiPen 2-Alvaro 0.3 MG/0.3ML as directed In jection USE DIRECTED Active Sertraline HCl 50 MG 1 tablet Orally Once a day Active Sertraline HCl 25 MG TAKE [address] [facility] EVERY DAY Active Cyclobenzaprine HCl 10 MG 1 tablet Orall y three times a day 04/12/2024 Active LORazepam 1 MG 1 tablet Orally ever y 3 hours prn anxiety prior to MRI 07/23/2024 Active Social History Tobacco Use: Social History Observation Description Date Details (start date - stop date) Never Smoker NA - NA Sex Assigned At : Social History Observation Description Sex Assigned At Male Tobacco Use/Smoking Question Answer Notes Patient is a nonsmoker Additional Findings: Tobacco Non-User Aggressive non-smoker Vital Signs Height 68 in 09/05/2024 Weight 165 lbs 09/05/2024 BMI 25.09 kg/m2 09/05/2024 Encounters Encounter Location Date Provider Diagnosis Tito Gilbert III, MD [address] [place] [address] [place] [address] 09/05/2024 Tito Gilbert Left rotator cuff te ar arthropathy M12.812 ; Mesenteric fibrosis K66.8 ; Back pain, unspecified back location, unspecified back pain laterality, unspecified chronicity M54.9 ; Cervical neck pain with evidence of disc disease M50.90 ; Idiopathic acute pancreatitis without infection or necrosis K85.00 and Abdominal pain, unspecified abdominal location R10.9 Assessments Encounter Date Diagnosis (ICD Code) Assessment Notes Treatment Notes Treatment Clinical Notes 09/05/2024 Left rotator cuff tear arthropathy (ICD-10 - M12.812) There is been no change in his shoulder situation. He experiences pain in her shoulder with elevation above the horizon. He has been referred to orthopedics. 09/05/2024 Mesenteric fibrosis (ICD-10 - K66.8) He has been told by the aircraft ordnance technician to obtain the abdomen comes and mesenteric fibrosis. He has been placed on tamoxifen for this. Due to the increasiing complexity of his pain and the lack of a history of current therapy have referred him to [facility] pain management gastroenterology. Second opinion. 09/05/2024 Back pain, unspecified back location, unspecified back pain laterality, unspecified chronicity (ICD-10 - M54.9) He continues to have thoracic back pain, but his main complaint is in his abdomen. He was referred to [facility] for Suboxone. 09/05/2024 Cervical neck pain with evidence of disc disease (ICD-10 - M50.90) I have refilled his oxycodone has been controlled for left shoulder the neck and also with acute pancreatitis. 09/05/2024 Idiopathic acute pancreatitis without infection or necrosis (ICD-10 - K85.00) He has acute and chronic pancreatic pain. He is not interested in pancreatectomy. He will proceed to endoscopic celiac nerve block in April 2023 09/05/2024 Abdominal pain, unspecified abdominal location (ICD-10 - R10.9) He has been discussing various options with the pain specialist. He has agreed to a course of oral ketamine. Plan Of Treatment Medication Medication Name Sig Start Date Stop Date Notes Ondansetron 4 MG 1 tablet on the tong ue and allow to dissolve Orally every 6 hours as needed for nausea 02/05/2024 Suboxone 8-2 MG 8mg in the morning, 4mg in the afternoon, 8mg in the evening Sublingual Every 8 hours fentaNYL 75 MCG/HR 1 patch to skin Burden sdermal every 72 hours 10/23/2023 Readi-Cat 2 2 % take 450 ml Orally one time EpiPen 2-Alvaro 0.3 MG/0.3ML as directed In jection USE DIRECTED Sertraline HCl 50 MG 1 tablet Orally Once a day 07/06/2024 Sertraline HCl 25 MG TAKE 1 TABLET BY MOUTH EVERY DAY Cyclobenzaprine HCl 10 MG 1 tablet Orall y three times a day 04/12/2024 LORazepam 1 MG 1 tablet Orally ever y 3 hours prn anxiety prior to MRI 07/23/2024 Next Appt Details Follow Up: 5W, In four weeks , Reason: Telehealth, To discuss the treatment plan and progress Provider Name:Tito Gilbert, 12/31/2024 11:00:00 AM, [address] [place] [address] [address], [place], [address], Progress Notes * Aneuyd CANCINO KDOB:[birth year] (64 yo M)Acc No.[id number]:09/05/2024 Patient:?Aneudy CANCINO Provider:?Tito Gilbert MD :1960???Age:64 Y???Sex:Male Melo e:09/05/2024 Address:[address], [place], [id number] Subjective: * Chief Complaints: * ???Chronic back painChronic abdominal painIndeterminate idiopathic pancreatitisMesenteric fibrosis * HPI: ???:?Telehealth?Location of provider rendering services:?{...} [address] [facility] [address] ?Location of patient:?address listed in demographics for today's visit ?Patient identification confirmed using:?Name, ?Telehealth method:?Telephone only. Patient not visible to care provider. ?Consent:?Patient verbally consented to treatment, Patient verbally consented to billing insurance company, Patient informed of any privacy concerns related to method of visit ?Total time spent with patient (mins)?15 ? The 64-year-old male patient has been experiencing abdominal pain and depression. The pain is constant and uncomfortable, but the patient is managing to not let it stop him. The depression varies, with some days being good and others not so good. The patient feels like he is fighting every day to stay positive. The patient has been on suboxone and sertraline for his conditions. Recently, his doctor, Dr. Junior, has proposed a trial of treatment with duloxetine, which would require tapering off the buprenorphine gradually and getting rid of the sertraline. This process could take 6 to 10 weeks. Another strategy to be considered is a trial of treatment with zonisamide or momentum. The doctor also mentioned a new treatment with oral form of ketamine, which is a new approach and was previously administered intravenously. * ROS:?General/Constitutional:?pain?only normal aches and pains.?Chills?denies.?Fatigue?admits.?Fever?denies.?ENT:?Decreased hearing?denies.?Respiratory:?Cough?denies.?Cardiovascular:?Chest pain with exertion?denies.?Dyspnea on exertion?denies.?Shortness of breath?denies.?Gastrointestinal:?Constipation?denies.?Decreased appetite?denies.?Diarrhea?denies.?Heartburn?denies.?Nausea?denies.?Rectal bleeding?denies.?Vomiting?denies.?Hematology:?bruising?denies.?petechiae?denies.?Swollen glands?none have been noted.?Genitourinary:?Frequent urination?denies.?Musculoskeletal:?Muscle aches?denies.?Painful joints?denies.?Sciatica?denies.?Weakness?denies.?Skin:?Itching?denies.?Rash?denies.?Skin lesion(s)?denies.?Neurologic:?Difficulty speaking?denies.?Dizziness?denies.?Headache?denies.?Low back pain?denies.?Psychiatric:?Depressed mood?denies.? * Medical History:? * Surgical History:?left orchi ectomy 1981radical lymph node dissection 1981right rotator cuff surgery Dr. Garcia 07/2014EGD w/ Bx and EUS Celiac Plexus Block 05/08/2023No history * Hospitalization/Major Diagno stic Procedure:?Pancreatitis 01/2021No history * Family History:?Father: mary e 80 yrs, CABAG, angioplasty,spinal stenosis, hypertension, hyperlipidemia, anxiety, diagnosed with HTN, Hyperlipidemia.?Mother: alive 75 yrs, DJD, hypertension, diagnosed with HTN.?1 brother(s) , 3 sister(s) - healthy. .? He has no children. * Social History:?Tobacco Use:?Tobacco Use/Smoking?Patient is a?nonsmoker ?Additional Findings: Tobacco Non-User?Aggressive non-smoker ???He was born in [place], [place]. * Medications:?TakingLORazepam 1 MG Tablet 1 tablet Orally every 3 hours prn anxiety prior to MRI EpiPen 2-Alvaro 0.3 MG/0.3ML Solution Auto-injector as directed Injection USE DIRECTED Readi-Cat 2 2 % Suspension take 450 ml Orally one time fentaNYL 75 MCG/HR Patch 72 Hour 1 patch to skin Transdermal every 72 hours Suboxone 8-2 MG Film 8mg in the morning, 4mg in the afternoon, 8mg in the evening Sublingual Every 8 hours Ondansetron 4 MG Tablet Disintegrating 1 tablet on the tongue and allow to dissolve Orally every 6 hours as needed for nausea Cyclobenzaprine HCl 10 MG Tablet 1 tablet Orally three times a day Sertraline HCl 25 MG Tablet TAKE 1 TABLET BY MOUTH EVERY DAY Sertraline HCl 50 MG Tablet 1 tablet Orally Once a day Medication List reviewed and reconciled with the patientTaking LORazepam 1 MG Tablet 1 tablet Orally every 3 hours prn anxiety prior to MRI Taking EpiPen 2-Alvaro 0.3 MG/0.3ML Solution Auto-injector as directed Injection USE DIRECTED Taking Readi-Cat 2 2 % Suspension take 450 ml Orally one time Taking fentaNYL 75 MCG/HR Patch 72 Hour 1 patch to skin Transdermal every 72 hours Taking Suboxone 8-2 MG Film 8mg in the morning, 4mg in the afternoon, 8mg in the evening Sublingual Every 8 hours Taking Ondansetron 4 MG Tablet Disintegrating 1 tablet on the tongue and allow to dissolve Orally every 6 hours as needed for nausea Taking Cyclobenzaprine HCl 10 MG Tablet 1 tablet Orally three times a day Taking Sertraline HCl 25 MG Tablet TAKE 1 TABLET BY MOUTH EVERY DAY Taking Sertraline HCl 50 MG Tablet 1 tablet Orally Once a day Medication List reviewed and reconciled with the patient * Allergies:?Bactrim: rash - A llergyBee Stingno[Allergies Verified] Objective: * Vitals:?Ht: 68, Wt:165, BMI: 25.09, Ht-cm: 172.72, Wt-k.84. Assessment: * Assessment: 1.?Mesenteric fibrosis - K66 .8 (Primary)???Notes :He has been told by the aircraft ordnance technician to obtain the abdomen comes and mesenteric fibrosis. He has been placed on tamoxifen for this. Due to the increasiing complexity of his pain and the lack of a history of current therapy have referred him to [facility] pain management gastroenterology. Second opinion.???2.?Left rotator cuff tear arthropathy - M12.812???Notes :There is been no change in his shoulder situation. He experiences pain in her shoulder with elevation above the horizon. He has been referred to orthopedics.???3.?Back pain, unspecified back location, unspecified back pain laterality, unspecified chronicity - M54.9???Notes :He continues to have thoracic back pain, but his main complaint is in his abdomen. He was referred to [facility] for Suboxone.???4.?Cervical neck pain with evidence of disc disease - M50.90???Notes :I have refilled his oxycodone has been controlled for left shoulder the neck and also with acute pancreatitis.???5.?Idiopathic acute pancreatitis without infection or necrosis - K85.00???Notes :He has acute and chronic pancreatic pain. He is not interested in pancreatectomy. He will proceed to endoscopic celiac nerve block in April 2023???6.?Abdominal pain, unspecified abdominal location - R10.9???Notes :He has been discussing various options with the pain specialist.? He has agreed to a course of oral ketamine.??? Plan: * Treatment: 2.?Others? Continue LORazepam Tablet, 1 MG, 1 tablet, Orally, every 3 hours prn anxiety prior to MRI;?Continue EpiPen 2-Alvaro Solution Auto-injector, 0.3 MG/0.3ML, as directed, Injection, USE DIRECTED; Continue Readi-Cat 2 Suspension, 2 %, take 450 ml, Orally, one time;?Continue fentaNYL Patch 72 Hour, 75 MCG/HR, 1 patch to skin, Transdermal, every 72 hours;?Continue Suboxone Film, 8-2 MG, 8mg in the morning, 4mg in the afternoon, 8mg in the evening, Sublingual, Every 8 hours;?Continue Ondansetron Tablet Disintegrating, 4 MG, 1 tablet on the tongue and allow to dissolve, Orally, every 6 hours as needed for nausea;?Continue Cyclobenzaprine HCl Tablet, 10 MG, 1 tablet, Orally, three times a day;?Continue Sertraline HCl Tablet, 50 MG, 1 tablet, Orally, Once a day.?? * Procedure Codes:?76896 PHONE E/M BY MY 11-20 MIN * Preventive Medicine:? ??Counseling:?Care goal follow-up plan:?Counseling for abnormal BMI given?Yes ?Above Normal BMI Follow-up?Dietary management education, guidance, and counseling * Follow Up:?5W, In four weeks (Reason: Telehealth, To discuss the treatment plan and progress) * Images: * Sign off status: Completed true * Provider:?Tito Gilbert MD Date:?08/27 Generated for Natalia hitchcock/Harpreet/Moesmitting on:?12/25/2024 10:24 AM EST History and Physical Notes * HPI (History of Present Illness) Category Sub-Category Detail Notes Telehealth Location of [facility] rendering services:: {...} [address] [facility] [address] Location of patient:: address listed in demographics for today's visit Patient identification confirmed using:: Name, Telehealth method:: Telephone only. Pat ient not visible to care provider. Consent:: Patient verbally c onsented to treatment, Patient verbally consented to billing insurance company, Patient informed of any privacy concerns related to method of visit Total time spent with patient (mins): 15
--- OUTSIDE RECORDS SUMMARY | 2024-12-25 10:24 | XMS_ITS | Encounter Summary ---
Author Organization [facility] Address [address] [place] [address] Care Team Providers Care Supervisor Belt And Link Assembly Name Role Phone Tito Gilbert MD Primary Care Provider [phone] Encounter Details Date Type Department Care Team (Late st Contact Info) Description 07/08/2024 Scanned Document [facility] Neurology [facility] [address] [address] Therese Bright MD [address] [address] Social History Tobacco Use Types Packs/Day Years Used Date Smoking Tobacco: Never Smokeless Tobacco: Never PHQ-2 Answer Date Recorded PHQ-2 Total Score 4 07/08/2024 Sex and Gender Information Value Date Recorded Sex Assigned at Not on file Gender Identity Not on file Sexual Orientation Not on file documented as of this encounter Plan of Treatment Not on file documented as of this encounter Visit Diagnoses Not on filedocumented in this encounter Care Teams Supervisor Belt And Link Assembly Relationship Specialty Start Date End Date Tito Gilbert MD [address] [facility] [address] [place] [address] PCP - General 02/07/22 documented as of this encounter
--- OUTSIDE RECORDS SUMMARY | 2024-12-25 10:24 | XMS_ITS ---
Author Organization Tito Gilbert III, MD Address [address] [place] [address] [address] [place] [address] Care Team Providers Care Clothing Trades Workers Name Role Phone Tito Gilbert Primary Care Provider [phone] Allergies Allergen (clinical drug ingredient) Drug/Non Drug Allergy documented on EMR Reaction Allergy Type Onset Date Status Bee Sting Unknown Allergy Active sulfamethoxazole / trimethoprim Bactrim rash Drug Allergy Active REASON FOR VISIT Telehealth Medications Medication SIG (Take, Route, Frequency, Duration) Notes Start Date End Date Status Cyclobenzaprine HCl 10 MG 1 tablet Orall y three times a day 04/12/2024 Active Sertraline HCl 25 MG TAKE 1 TABLET BY [facility] EVERY DAY Active fentaNYL 75 MCG/HR 1 patch to skin Transdermal every 72 hours 10/23/2023 Activ e Suboxone 8-2 MG 8mg in the morning, 4mg in the afternoon, 8mg in the evening Sublingual Every 8 hours Active Ondansetron 4 MG 1 tablet on the tong ue and allow to dissolve Orally every 6 hours as needed for nausea 02/05/2024 Active Readi-Cat 2 2 % take 450 ml Orally o ne time Active Sertraline HCl 50 MG 1 tablet Orally Once a day Active LORazepam 1 MG 1 tablet Orally ever y 3 hours prn anxiety prior to MRI 07/23/2024 Active EpiPen 2-Alvaro 0.3 MG/0.3ML as directed In jection USE DIRECTED Active Social History Tobacco Use: Social History Observation Description Date Details (start date - stop date) Never Smoker NA - NA Sex Assigned At : Social History Observation Description Sex Assigned At Male Tobacco Use/Smoking Question Answer Notes Patient is a nonsmoker Additional Findings: Tobacco Non-User Aggressive non-smoker Encounters Encounter Location Date Provider Diagnosis Tito Gilbert III, MD [address] [place] [address] [address] [place] [address] 10/11/2024 Tito Gilbert Left rotator cuff te ar arthropathy M12.812 Assessments Encounter Date Diagnosis (ICD Code) Assessment Notes Treatment Notes Treatment Clinical Notes 10/11/2024 Left rotator cuff tear arthropathy (ICD-10 - M12.812) There is been no change in his shoulder situation. He experiences pain in her shoulder with elevation above the horizon. He has been referred to orthopedics. Plan Of Treatment Medication Medication Name Sig Start Date Stop Date Notes Cyclobenzaprine HCl 10 MG 1 tablet Orall y three times a day 04/12/2024 Sertraline HCl 25 MG TAKE 1 TABLET BY MOUTH EVERY DAY fentaNYL 75 MCG/HR 1 patch to skin Burden sdermal every 72 hours 10/23/2023 Suboxone 8-2 MG 8mg in the morning, 4mg in the afternoon, 8mg in the evening Sublingual Every 8 hours Ondansetron 4 MG 1 tablet on the tong ue and allow to dissolve Orally every 6 hours as needed for nausea 02/05/2024 Readi-Cat 2 2 % take 450 ml Orally one time LORazepam 1 MG 1 tablet Orally ever y 3 hours prn anxiety prior to MRI 07/23/2024 EpiPen 2-Alvaro 0.3 MG/0.3ML as directed In jection USE DIRECTED Next Appt Details Provider Name:Tito Gilbert, 12/31/2024 11:00:00 AM, [address] [place] [address] [address], [place], [address], Progress Notes * Aneudy CANCINO KDOB:[birth year] (64 yo M)Acc No.[id number]:10/11/2024 Patient:?Aneudy CANCINO Provider:?Tito Gilbert MD :1960???Age:64 Y???Sex:Male Melo e:10/11/2024 Address: [address], [place], [id number] Subjective: * Chief Complaints: * ???1. Telehealth. * HPI: ???:?Telehealth?Location of provider rendering services:?{...} [address] [facility] [address] ?Location of patient:?address listed in demographics for today's visit ?Patient identification confirmed using:?Name, ?Telehealth method:?Telephone only. Patient not visible to care provider. ?Consent:?Patient verbally consented to treatment, Patient verbally consented to billing insurance company, Patient informed of any privacy concerns related to method of visit ?Total time spent with patient (mins)?15 * ROS:?General/Constitutional:?pain?only normal aches and pains.?Chills?denies.?Fatigue?admits.?Fever?denies.?ENT:?Decreased hearing?denies.?Respiratory:?Cough?denies.?Cardiovascular:?Chest pain with exertion?denies.?Dyspnea on exertion?denies.?Shortness of breath?denies.?Gastrointestinal:?Constipation?denies.?Decreased appetite?denies.?Diarrhea?denies.?Heartburn?denies.?Nausea?denies.?Rectal bleeding?denies.?Vomiting?denies.?Hematology:?bruising?denies.?petechiae?denies.?Swollen glands?none have been noted.?Genitourinary:?Frequent urination?denies.?Musculoskeletal:?Muscle aches?denies.?Painful joints?denies.?Sciatica?denies.?Weakness?denies.?Skin:?Itching?denies.?Rash?denies.?Skin lesion(s)?denies.?Neurologic:?Difficulty speaking?denies.?Dizziness?denies.?Headache?denies.?Low back pain?denies.?Psychiatric:?Depressed mood?denies.? 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 * Surgical History:?left orchi ectomy 1980, radical lymph node dissection 1980, right rotator cuff surgery Dr. Garcia 07/2014, EGD w/ Bx and EUS Celiac Plexus Block 05/08/2023, No history . * Hospitalization/Major Diagno stic Procedure:?Pancreatitis 01/2021, No history . * Family History:?Father: mary e 80 yrs, CABAG, angioplasty,spinal stenosis, hypertension, hyperlipidemia, anxiety, diagnosed with HTN, Hyperlipidemia.?Mother: alive 75 yrs, DJD, hypertension, diagnosed with HTN.?1 brother(s) , 3 sister(s) - healthy. .? He has no children. * Social History:?Tobacco Use:?Tobacco Use/Smoking?Patient is a?nonsmoker ?Additional Findings: Tobacco Non-User?Aggressive non-smoker ???He was born in [place], [place]. * Medications:?Taking LORazepa m 1 MG Tablet 1 tablet Orally every 3 hours prn anxiety prior to MRI , Taking EpiPen 2-Alvaro 0.3 MG/0.3ML Solution Auto-injector as directed Injection USE DIRECTED , Taking Readi-Cat 2 2 % Suspension take 450 ml Orally one time , Taking fentaNYL 75 MCG/HR Patch 72 Hour 1 patch to skin Transdermal every 72 hours , Taking Suboxone 8-2 MG Film 8mg in the morning, 4mg in the afternoon, 8mg in the evening Sublingual Every 8 hours , Taking Ondansetron 4 MG Tablet Disintegrating 1 tablet on the tongue and allow to dissolve Orally every 6 hours as needed for nausea , Taking Cyclobenzaprine HCl 10 MG Tablet 1 tablet Orally three times a day , Taking Sertraline HCl 25 MG Tablet TAKE 1 TABLET BY MOUTH EVERY DAY , Taking Sertraline HCl 50 MG Tablet 1 tablet Orally Once a day , Medication List reviewed and reconciled with the patient * Allergies:?Bactrim: rash - A llergy, Bee Sting. Objective: * Vitals:? Assessment: * Assessment: 1.?Left rotator cuff tear ar thropathy - M12.812???Notes :There is been no change in his shoulder situation. He experiences pain in her shoulder with elevation above the horizon. He has been referred to orthopedics.??? Plan: * Treatment: 2.?Others? Continue LORazepam Tablet, [...] MG, 1 tablet, Orally, three times a day.?? * Images: * The named appointment provid er may or may not be the originator of this progress note, and it is not deemed complete until electronically signed by the appointment provider. Sign off status: Pending * Provider:?Tito Gilbert MD Date:?09/27 Generated for Natalia hitchcock/Harpreet/Eldon on:?12/25/2024 10:24 AM EST History and Physical Notes * HPI (History of Present Illness) Category Sub-Category Detail Notes Telehealth Location of [facility] rendering services:: {...} [address] [place] [address] [place] [address] Location of patient:: address listed in demographics for today's visit Patient identification confirmed using:: Name, Telehealth method:: Telephone only. Audrey ent not visible to care provider. Consent:: Patient verbally c onsented to treatment, Patient verbally consented to billing insurance company, Patient informed of any privacy concerns related to method of visit Total time spent with patient (mins): 15
--- OUTSIDE RECORDS SUMMARY | 2024-12-25 10:24 | XMS_ITS | Continuity of Care Document ---
Author Organization [facility] Address [address] [place] [address] Phone Care Team Providers Care Department Head [employer] Or [employer] Name Role Phone Dawit MCCULLOUGH, GUILLERMO, Tito HUNTER Unavailable U navailable Allergies, Adverse Reactions, Alerts Substance Reaction Status Criticality Sulfa (Sulfonamide Antibiotics) Active No Information Medications Medication Instructions Dosage Effective Dates (start - stop) Status Comments Eliquis 2.5 mg tablet take 1 tablet by mouth bid start 2 hours before first procedure continue for 2 weeks - Active TAMOXIFEN CITRATE (unknown strength) Not Available - Active ZOLOFT (unknown strength) Not Available - Active aspirin 81 mg tablet,delayed release - Active MORPHINE SULFATE ER (unknown strength) Not Available - Active Procedures Procedure Date Office/Outpt E&M Established 15 Mins- CT & [place] Duplex Scan-extrem Veins; Uni/ CT & [place] O Office/Outpt E&M Established 10 Mins Aug Duplex Scan-extrem Veins; [facility]/ Duplex Scan-extrem Veins; [facility]/ Endovenous Laser, 1st Vein Office/Outpt E&M Established 10 Mins - T elemedicine Duplex Scan-extrem Veins; [facility]/ Office/Oupt E&M New Pt 30 Mins Advance Directives Directive Yes / No Effective Date File Name Other Directive No 09/25/2024 N/A WARNING:The information contained in this section is historical and is provided for information only and does not constitute a legal document or any assurance that the information is still accurate. Please verify the information with the obrien of the legal document before using it for clinical purposes. Encounters Encounter Description Practice Location Reason(s) For Visit Diagnoses Date Provider Providers Copied on Encounter [facility], [address] [place] [address] Dr Harrell [address] [address], [id number], tel:[phone] [facility] Venous insufficiency (chronic) (peripheral) Oct-3 4 Dawit MCCULLOUGH RVT, RPVI Robert. [address] [place] [address], [place], [place], [id number] , [place]. tel:[phone] Referring Provider: Tito Dooley, [address] [place] [address], [place], [address]. tel:[phone] [facility], [address] [place], [place] [address]Je[place], [id number], [place] tel:[phone] [facility] [place] Chronic venous hypertension (idiopathic) with other complications of left lower extremity Oct-3 4 Dawit MCCULLOUGH RVT, RPVI Robert. [address] [place] [address], [place], [place], [id number] , [place]. tel:[phone] Referring Provider: Tito Dooley, [address] [place] [address] Suite [facility], [place], [address]. tel:[phone] Office/Outpt E&M Established 10 Mins [facility], [address] [place] [address] [facility] [address], [id number], [place] tel:[phone] [facility] [place] Chronic venous hypertension (idiopathic) without complications of left lower extremity Oct-1 3 Dawit MCCULLOUGH RVT, RPVI Robert. [address] [facility], [place] [address], [place], [place], [id number] , [place]. tel:[phone] Referring Provider: Tito Dooley, [address] [place] [address] [address], [place], [address]. tel:[phone] [facility], [address] [place] [address] [address], [id number], [place] tel:[phone] [facility] [place] Varicose veins of left lower extremity with pain 3 Jorge MCCULLOUGH FACS T [place]. [address] [facility], [address], [place], [address], [place]. tel:[phone] Referring Provider: Tito Dooley, [address] [place] [address] [address], [place], [address]. tel:[phone] [facility], [address] [place] [address] [address]Je[place]ine [place], [id number], [place] tel:[phone] [facility] [place] [facility] [place] Encntr for f/u exam aft trtmt for cond oth than malig neoplmChronic venous hypertension w oth comp of l low extrem Sep- 3 Jorge MCCULLOUGH FACS T [place] Oh. [address] [facility], [address], [place], [address], [place]. tel:[phone] Referring Provider: Tito Dooley, [address] [place] [address] [address], [place], [address]. tel:[phone] [facility], [address] [place] [address] [address]Je[place], [id number], [place] tel:[phone] CVR - [facility] Chronic venous hypertension w inflammation of l low extrem Sep- 3 Jorge MCCULLOUGH FACS T [place] Oh. [address] [facility], [address], [place], [address], [place]. tel:[phone] Referring Provider: Tito Dooley, [address] [place] [address] [address], [place], [address]. tel:[phone] Office/Outpt E&M Established 10 Mins - [facility] MD GRI[facility], [address] [place] [address] [address], [id number], [place] tel:[phone] CVR - [facility] Chronic venous htn w oth comp of bilateral low extrm Jul- 3 Jorge Oh. [address] [place] [address], [place] [address], [place], [address], [place]. [phone] Referring Provider: Tito Dooley, [address] [place] [address] [address], [place], [address]. tel:[phone] [facility], [address] [place] [address] [address]Je[place]ine [place], [id number], [place] tel:[phone] CVR - [facility] No Information 3 Jorge Oh. [address] [place] [address], [place], [address], [place]. [phone] Referring Provider: Tito Dooley, [address] [place] [address] [address], [place], [address]. tel:[phone] [facility], [address] [place] [address] [address], [id number], [place] tel:[phone] CVR - [facility] Chronic venous hypertension w oth comp of l low extrem 3 Jorge Oh. [address] [place] [address], [place] [address], [place], [address], [place]. [phone] Referring Provider: Tito Dooley, [address] [place] [address] [address], [place], [address]. tel:[phone] Office/Oupt E&M New Pt 30 Mins [facility], [address] [place] [address] [address]Je[place]ine [place], [id number], [place] tel:[phone] CVR - [facility] Varicose veins of left lower extremities w oth complicationsP ain in left lower legPruritus, unspecified 3 Jorge Oh. [address] [place] [address], Suite [facility], [place], [address], [place]. tel:[phone] Referring Provider: Tito Gilbert MD E, [address], [place], [address]. tel:[phone] Family History Family Member Type Diagnosis Age At Onset No Information Payers Payer name Insurance type Covered alliance party ID Authorconner rose(s) Medicare ISATU TREVINO [id number] [facility] [id number] Social History Type Description Quantity Date Captured Comments Alcohol Use Details Unknown Caffeine Use Details Unknown Tobacco Use Status Current non-smoker Smoking Status Never Smoker Non-Smoking Tobacco Use Details : No Details Available : No Details Available Sex Male Vital Signs Date / Time: Height Weight BMI Pulse Rate Blood Pressure Temperature Respiratory Rate Body Surface Area Head Circumference Head Circ. Percentile Wt./Tee. Percentile BMI percentile Pulse Ox Inhaled Ox 72.570 kg (160.00 lbs) 24.4 2 kg/m eter (2) 142/86 mm[Hg] Chief Complaint And Reason For Visit No Information Reason For Referral Reason For Referral No Information Plan Of Treatment Date Type Action Status Goal Diet education completed Goal Diet education completed Goal Diet education completed Goal Diet education completed Goal Diet education completed Goal Diet education completed Referral Ordered: Tito Gilbert MD timeframe: 3 Months (related to Essential (primary) hypertension) ordered Referral Ordered: Weight management: Referral to physician timeframe: 3 Months (related to Body mass index (BMI) 24.0-24.9, adult) ordered Referral Ordered: Tito Gilbert MD timeframe: 3 Months (related to Essential (primary) hypertension) ordered Referral Ordered: Weight management: Referral to physician timeframe: 3 Months (related to Body mass index (BMI) 24.0-24.9, adult) ordered Referral Ordered: Tito Gilbert MD timeframe: 3 Months (related to Essential (primary) hypertension) ordered Referral Ordered: Weight management: Referral to physician timeframe: 3 Months (related to Body mass index (BMI) 24.0-24.9, adult) ordered Appointment Aneudy Story BOOKED Appointment Aneudy Story BOOKED History Of Present Illness Encounter Date Complaint History Of Prese nt Illness No Information Functional Status Date Functional Assessmen t No Information Instructions Date Instruction Additional Infor mation Compression stocking usage as conservative measure Related to Venous insufficiency (chronic) (peripheral) Giving Encouragement to exercise Related to Body mass index (BMI) 24.0-24.9, adult Patient education booklet given Related to Venous insufficiency (chronic) (peripheral) Diet education Related to Essen tial (primary) hypertension Diet education Related to Body mass index (BMI) 24.0-24.9, adult Exercise education Related to Es sential (primary) hypertension Lifestyle education Related to E ssential (primary) hypertension Lifestyle education Related to B jocelyn mass index (BMI) 24.0-24.9, adult Diet education Related to Essen tial (primary) hypertension Exercise education Related to Es sential (primary) hypertension Lifestyle education Related to E ssential (primary) hypertension Diet education Related to Body mass index (BMI) 24.0-24.9, adult Giving Encouragement to exercise Related to Body mass index (BMI) 24.0-24.9, adult Lifestyle education Related to B jocelyn mass index (BMI) 24.0-24.9, adult Patient education booklet given Related to Chronic venous hypertension (idiopathic) without complications of left lower extremity Patient education booklet given Related to Chrn Vns Hyprtnsn w/Compl (Pain Edema Swelling); BILAT Diet education Related to Essen tial (primary) hypertension Exercise education Related to Es sential (primary) hypertension Lifestyle education Related to E ssential (primary) hypertension Diet education Related to Body mass index (BMI) 24.0-24.9, adult Pre and post instruc tions reviewed and provided Related to Varicose veins of left lower extremities w oth complications Giving Encouragement to exercise Related to Body mass index (BMI) 24.0-24.9, adult Lifestyle education Related to B jocelyn mass index (BMI) 24.0-24.9, adult Patient education booklet given Related to Varicose veins of left lower extremities w oth complications Assessments Type Assessment Date No Information Patient Care Teams Name Effective Dates (start - stop) Status Members No Information
--- OUTSIDE RECORDS SUMMARY | 2024-12-25 10:25 | XMS_ITS | Encounter Summary ---
Author Organization [facility] Address [address] [place] [address] Care Team Providers Care Anthropometrist Name Role Phone Tito Gilbert MD Primary Care Provider [phone] Encounter Details Date Type Department Care Team (Late st Contact Info) Description 07/08/2024 Scanned Document [facility] Neurology [facility] [address] [address] Therese Bright MD [address] [address] Social History Tobacco Use Types Packs/Day Years [...] on filedocumented in this encounter Care Teams Anthropometrist Relationship Specialty Start Date End Date Tito Gilbert MD [address] [facility] [address] [place] [address] PCP - General 02/07/22 documented as of this encounter
--- OUTSIDE RECORDS SUMMARY | 2024-12-25 10:25 | XMS_ITS | Encounter Summary ---
Author Organization [facility] Address [address] [place] [address] Care Team Providers Care Cotton Classer Name Role Phone Tito Gilbert MD Primary Care Provider [phone] Encounter Details Date Type Department Care Team (Late st Contact Info) Description 04/27/2022 Scanned Document [facility] [place] [address] [id number] Social History Tobacco Use Types Packs/Day Years Used Date Smoking Tobacco: Never Assessed Sex and Gender Information Value Date Recorded Sex Assigned at Not on file Gender Identity Not on file Sexual Orientation Not on file documented as of this encounter Plan of Treatment Not on file documented as of this encounter Visit Diagnoses Not on filedocumented in this encounter Care Teams Cotton Classer Relationship Specialty Start Date End Date Tito Gilbert MD [address] [facility] [address] [place] [address] PCP - General 02/07/22 documented as of this encounter
--- OUTSIDE RECORDS SUMMARY | 2024-12-25 10:25 | XMS_ITS | Clinical Summary ---
Author Organization [facility] Address [address] [place] [address] Care Team Providers Care Oil Separator Name Role Phone Tito Gilbert MD Primary Care Provider [phone] Allergies Active Allergy Reactions Criticality Noted Date Comments Bee Venom Anaphylaxis High 08/09/2022 Sulfamethoxazole-Trimethoprim Rash/Dermatitis Low 0 07/24/2022 Medications Medication Sig Dispensed Refills Start Date End Date Status Suboxone 8-2 MG per SL film 8mg in the morning, 4mg in the afternoon, 8mg in the evening Sublingual Every 8 hours 04/25/2024 Active ondansetron (ZOFRAN-ODT) 4 MG disintegrating tablet 1 tablet on the tongue and allow to dissolve Orally every 6 hours as needed for nausea 02/05/2024 Active sertraline (ZOLOFT) 50 MG tablet Take 1 tablet (50 mg total) by mouth daily. 03/05/2024 Active diazepam (VALIUM) 5 MG tabletIndications:Danitza strophobia Take 1 tab 30 mins before MRI and have the 2nd tab available to take if needed in the MRI. Do not drive. 2 tablet 07/08/2024 Active Active Problems Problem Noted Date Diagnosed Date Cervicalgia 07/30/2024 Deficit of vestibulo-ocular reflex 07/30/2024 Postconcussion syndrome 07/30/2024 Cervicogenic headache 07/30/2024 Malignant neoplasm of testicle 07/08/2024 Thoracic kyphosis 07/08/2024 Spondylosis of lumbar spine 07/08/2024 Scoliosis 07/08/2024 Memory problem 07/08/2024 Injury of head and neck 07/08/2024 Drug-induced nausea and vomiting 07/08/2024 Family history of substance dependence 08/12/202 4 Depressive disorder 07/08/2024 Pancreatitis 03/08/2005 Status post orchiectomy 12/20/2004 Social History Tobacco Use Types Packs/Day Years Used Date Smoking Tobacco: Never Smokeless Tobacco: Never PHQ-2 Answer Date Recorded PHQ-2 Total Score 4 07/08/2024 Sex and Gender Information Value Date Recorded Sex Assigned at Not on file Gender Identity Not on file Sexual Orientation Not on file Last Filed Vital Signs Vital Sign Reading Time Taken Comments Blood Pressure 138/74 07/08/2024 12:59 PM EDT Pulse 83 07/08/2024 12:59 PM EDT Temperature - - Respiratory Rate - - Oxygen Saturation 97% 07/08/2024 12:59 PM EDT Inhaled Oxygen Concentration - - Weight 70.3 kg (155 lb) 07/08/2024 12:59 PM EDT Height 172.7 cm (5' 8 ) 07/08/2024 12:59 PM EDT Body Mass Index 23.57 07/08/2024 12:59 PM EDT Plan of Treatment Health Maintenance Due Date Last Done Comments Hepatitis C Virus Screening 1960 DTaP/Tdap/Td Vaccines (1 - Tdap) 1977 Pneumococcal Vaccines 50+ (1 of 2 - PCV) 1977 Zoster (Shingles) Vaccine (1 of 2) 1977 Colonoscopy 2003 Influenza Vaccine 06/27/2024 08/16/2023, , 09/06/2021, Additional history exists COVID-19 Vaccine ( season) 2024 09/10/2023, 11/02/2021, 04/17/2021, Additional history exists RSV Vaccine 60 years and older and Patients (1 - 1-dose 75+ series) 2033 Hepatitis B Vaccines Aged Out No long er eligible based on patient's age to complete this topic Care Teams Oil Separator Relationship Specialty Start Date End Date Tito Gilbert MD [address] [address] PCP - General 02/07/22
--- OUTSIDE RECORDS SUMMARY | 2024-12-25 10:25 | XMS_ITS ---
Author Name [facility] Organization Unknown History of Medication Use Medication Directions Dispensed Refills Start Date End Date Stat sertraline (ZOLOFT) 50 MG tablet Take 1 tablet (50 mg total) by mouth daily. 03/05/2024 08/06/2024 active Problems Problem Status Onset Date Problem Type Date of Resoluti on Source Spondylosis of lumbar spine active 2024-07-08 ProblemAct [facility] Cervicogenic headache active 2024-07-30 ProblemAct [facility] Thoracic kyphosis active 2024-07-08 ProblemAct [facility] Drug-induced nausea and vomiting active 2024-07-08 ProblemAct [facility] Cervicalgia active 2024-07-30 ProblemAct [facility] Status post orchiectomy active 2004-12-20 ProblemAct [facility] Memory problem active 2024-07-[address] Injury of head and neck active 2024-07-08 ProblemAct [facility] Pancreatitis active 2005-03-08 ProblemAct [facility] Family history of substance dependence active 2024-07-08 ProblemAct [facility] Malignant neoplasm of testicle active 2024-07-08 ProblemAct [facility] Deficit of vestibulo-ocular reflex active 2024-07-30 ProblemAct [facility] Depressive disorder active 2024-07-08 ProblemAct [facility] Postconcussion syndrome active 2024-07-30 ProblemAct [facility] Scoliosis active 2024-07-08 ProblemAct [facility]
--- OUTSIDE RECORDS SUMMARY | 2024-12-25 10:25 | XMS_ITS ---
Author Organization Tito Gilbert III, MD Address [address] [place] [address] [place] [address] Care Team Providers Care Customer Data Technician Name Role Phone Tito Gilbert Primary Care Provider REASON FOR VISIT Message Social History Sex Assigned At : Social History Observation Description Sex Assigned At Male Encounters Encounter Location Date Provider Diagnosis Tito Gilbert III, MD [address] [place] [address] [place] [address] 12/19/2024 Tito Gilbert Plan Of Treatment Next Appt Details Provider Name:Tito Gilbert, 12/31/2024 11:00:00 AM, [address] [place] [address] [place], [address], Progress Notes * Aneudy CANCINO KDOB:[birth year] (64 yo M)Acc No.[id number]:12/19/2024 Patient:?Aneudy CANCINO :1960???Age:64 Y???Sex:Male Address:[address], [facility] [place] [address] * true * Date:? Generated for Natalia hitchcock/Harpreet/Yehudaransmitting on:?12/25/2024 10:25 AM EST
== END 2024-12-25 11:08 | disposition home or self-care (01) ==
PROVIDERS: PCP Internal Medicine Medical Oncology; Visit Provider Nurse Practitioner Psychiatric/Mental Health
DX: F11.20 Opioid dependence, uncomplicated (principal)
CPT/HCPCS: 99214

== ENCOUNTER → 2024-12-25 09:02 | Outpatient (BNVA) | payer MEDICARE, OTHER, SELFPAY | PROVIDERS: PCP Internal Medicine Medical Oncology; Visit Provider Nurse Practitioner Psychiatric/Mental Health ==

== ENCOUNTER 2025-03-07 13:13 | Outpatient (AMB) | payer MEDICARE, OTHER, SELFPAY ==
--- NOTE | 2025-03-07 13:16 | MHC.OFFVIS ---
Intake Visit Reasons: MAT Allergies bee stings Allergy (Unknown, Uncoded 03/07/25 13:49) Anaphylaxis sulfa Allergy (Unknown, Uncoded 03/07/25 13:49) serum sickness HPI HPI MAT: Details: He has been on Suboxone 8/2 mg ,2 daily. 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 He has been doing well at this dose. He believes he has had Hepatitis C and HIV treatment in past. 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 Review of Systems Const All systems reviewed & are unremarkable except as noted in HPI and below Physical Exam Const General: cooperative Results AMB 14 Panel Urine Drug Screen Urine Marijuana (THC) Negative Last Edit by Aida Sullivan CMA on 03/07/25 13:51 Urine Cocaine Negative Last Edit by Aida Sullivan CMA on 03/07/25 13:51 Urine Morphine Negative Last Edit by Aida Sullivan CMA on 03/07/25 13:51 Urine Methamphetamine Negative Last Edit by Aida Sullivan CMA on 03/07/25 13:51 Urine Amphetamine Negative Last Edit by Aida Sullivan CMA on 03/07/25 13:51 Urine Benzodiazepine Negative Last Edit by Aida Sullivan CMA on 03/07/25 13:51 Urine Barbiturates Negative Last Edit by Aida Sullivan CMA on 03/07/25 13:51 Urine Methadone Negative Last Edit by Aida Sullivan CMA on 03/07/25 13:51 Urine Buprenorphine Positive Last Edit by Aida Sullivan CMA on 03/07/25 13:51 Urine Tricyclic Antidepressant Negative Last Edit by Aida Sullivan CMA on 03/07/25 13:51 Urine MDMA Negative Last Edit by Aida Sullivan CMA on 03/07/25 13:51 Urine Oxycodone Negative Last Edit by Aida Sullivan CMA on 03/07/25 13:51 Urine Phencyclidine Negative Last Edit by Aida Sullivan CMA on 03/07/25 13:51 Urine Propoxyphene Negative Last Edit by Aida Sullivan CMA on 03/07/25 13:51 Results Reviewed Results Reviewed: Laboratory Last Values POC Urine Buprenorphine Positive 03/07/25 13:49 POC Urine Morphine Negative 03/07/25 13:49 POC Urine Oxycodone Negative 03/07/25 13:49 POC Urine Methadone Negative 03/07/25 13:49 POC Urine Propoxyphene Negative 03/07/25 13:49 POC Urine Barbiturates Negative 03/07/25 13:49 POC U Tricyclic Antidpr Negative 03/07/25 13:49 POC Urine PCP Negative 03/07/25 13:49 POC Ur Amphetamines Negative 03/07/25 13:49 POC Ur Methamphetamine Negative 03/07/25 13:49 POC Urine MDMA Negative 03/07/25 13:49 POC Ur Benzodiazepine Negative 03/07/25 13:49 POC Urine Cocaine Negative 03/07/25 13:49 POC Ur Marijuana (THC) Negative 03/07/25 13:49 Assessment & Plan Assessment & Plan (1) Opioid dependence: Comment: He thinks he has had labs He gets two 8 mg strips daily Code(s): F11.20 - Opioid dependence, uncomplicated Category: Medical Qualifiers: Substance use status: uncomplicated Qualified Code(s): F11.20 - Opioid dependence, uncomplicated Plan: Suboxone 8/2, 2 daily,60 One month and one refill. Orders: Orders Hepatitis C Antibody Today F11.20 - Opioid dependence, uncomplicated HIV Ab/Ag Today F11.20 - Opioid dependence, uncomplicated Hepatitis B Surface Ab Qnt Today F11.20 - Opioid dependence, uncomplicated AMB 14 Panel Urine Drug Screen Today Z51.81 - Encounter for therapeutic drug level monitoring Hepatitis A IgG Today F11.20 - Opioid dependence, uncomplicated Hepatitis B Surface Antigen Today F11.20 - Opioid dependence, uncomplicated T Spot TB Today F11.20 - Opioid dependence, uncomplicated Syphilis Screen Today F11.20 - Opioid dependence, uncomplicated Medications: New buprenorphine-naloxone 8-2 mg (Suboxone) place 1 film on inside of (each) cheek 2 film sublingual DAILY 30 days 60 ea 1RF Coding Level of Care Code Est Pt Level 3 (09761) Diagnoses Uncomplicated opioid dependence F11.20 Substance use status: uncomplicated
--- OUTSIDE RECORDS SUMMARY | 2025-03-07 13:40 | XMS_ITS | Clinical Summary ---
Author Organization [address] Address [address] [place] [phone] Phone Care Team Providers Care Retail Pricing Coordinator Name Role Phone Tito Gilbert MD Primary Care Provider [phone] Social History Tobacco Use Types Packs/Day Years [...] cancer screening, Colonoscopy 2003 Diabetes screening 2003 Pneumococcal Vaccine (50+ ye ars) (1 of 1 - PCV) 2008 Shingles vaccine (Shingrix) (1 of 2 - Shingrix (RZV) 2 Dose Standard Series) 2008 Covid-19 vaccine series ( - 2023-25 season) 2024 Influenza vaccine 07/28/2025 RSV Immunization (1 - 1-dose 75+ series) 2033 Meningococcal Vaccine Aged Out No noe deanna eligible based on patient's age to complete this topic Insurance MEDICARE COMMERCIAL GENERIC MEDICARE COMMERCIAL GENERIC MEDICARE COMMERCIAL GENERIC Care Teams Retail Pricing Coordinator Relationship Specialty Start Date End Date Tito Gilbert MD [address] [place] [address] [place] [address] PCP - General Medical Oncology 05/03/24
--- OUTSIDE RECORDS SUMMARY | 2025-03-07 13:40 | XMS_ITS | Encounter Summary ---
Author Organization [facility] Address [address] [place] [address] Care Team Providers Care Carpenter Apprentice Name Role Phone Tito Gilbert MD Primary Care Provider [phone] Encounter Details Date Type Department Care Team (Late st Contact Info) Description 07/08/2024 Scanned Document [facility] [address] [phone] Therese Bright MD [address] [place] [address] Social History Tobacco Use Types Packs/Day Years Used Date Smoking Tobacco: Never Smokeless Tobacco: Never PHQ-2 Answer Date Recorded PHQ-2 Total Score 4 07/08/2024 Sex and Gender Information Value Date Recorded Sex Assigned at Not on file Gender Identity Not on file Sexual Orientation Not on file documented as of this encounter Plan of Treatment Upcoming Encounters Date Type Department Care Team (Late st Contact Info) Description 04/29/2025 10:30 AM EDT Office Visit [facility] [address] [phone] Tyshawn Briones PA-C [address] [place] [phone] documented as of this encounter Visit Diagnoses Not on filedocumented in this encounter Care Teams Carpenter Apprentice Relationship Specialty Start Date End Date Tito Gilbert MD [address] [place] [address] [address] [place] [address] PCP - General 02/07/22 documented as of this encounter
--- OUTSIDE RECORDS SUMMARY | 2025-03-07 13:40 | XMS_ITS | Clinical Summary ---
Author Organization [facility] Address [address] [place] [address] Care Team Providers Care Physical Therapy Assistant Name Role Phone Gilbert, Tito Primary Care Provider [phone] Allergies Active Allergy Reactions Criticality Noted Date [...] mg/0.3 mL injection syringe as directed Active Family History Relation Name Status Comments Father Mother Social History Tobacco Use Types Packs/Day Years [...] Health Maintenance Due Date Last Done Comments Cologuard 1960 Colon Cancer Screening 1960 Colonoscopy 1960 FOBT / Fit Test 1960 Hepatitis C Screening 1960 Sigmoidoscopy 1960 Medicare AWV 1959 DTaP,Tdap,and Td Vaccines (1 - Tdap) 1980 Pneumococcal Vaccine: 50+ Years (1 of 1 - PCV) 2008 COVID-19 Vaccine (4 - 2023- season) 2024 11/02/2021, 04/17/2021, 03/27/2021, Additional history exists Alcohol/Substance Use Screening 11/27/2024 Depression Screening and Follow-Up 11/27/2024 Fall Risk Screening 11/27/2024 Health Care Proxy Review 11/27/2024 Social Drivers of Health Annual Screening 11/27/2024 Influenza Vaccine (Season Ended) 2025 09/06/2021, 08/04/2020, 08/24/2018, Additional history exists RSV Vaccine (60+ years old and patients) (1 - 1-dose 75+ series) 2033 Zoster Vaccines Completed 06/01/2021, 12/17/2020 Hepatitis B Vaccines Aged Out No long er eligible based on patient's age to complete this topic Insurance MEDICARE [facility] Care Teams Physical Therapy Assistant Relationship Specialty Start Date End Date Gilbert, Tito [facility] [address] PCP - General Hematology 07/21/22
--- OUTSIDE RECORDS SUMMARY | 2025-03-07 13:40 | XMS_ITS ---
Author Organization Tito Gilbert III, MD Address [address] [place] [address] Care Team Providers Care Unscrambler Name Role Phone Tito Gilbert Primary Care Provider [phone] Results Social History Sex Assigned At : Social History Observation Description Sex Assigned At Male Encounters Encounter Location Date Provider Diagnosis Tito Gilbert III, MD [address] [place] [address] [place] [address] 02/05/2025 Tito Gilbert Plan Of Treatment Next Appt Details Provider Name:Tito Gilbert, 03/26/2025 10:30:00 AM, [address] [place] [address] [place], [address], Provider Name:Tito Gilbert, 04/30/2025 10:30:00 AM, [address] [place] [address] [place], [address], Provider Name:Tito Gilbert 01/01/2026 11:00:00 AM, [address] [place] [address] [place], [place], [address], Progress Notes * Aneudy CANCINO KDOB:[birth year] (64 yo M)Acc No.[id number]:02/05/2025 Patient:?Aneudy CANCINO Yessenia :1960???Age:64 Y???Sex:Male Address:[address], [place] [address] * true * Date:? Generated for Natalia hitchcock/Harpreet/eTransmitting on:?03/07/2025 01:40 PM EDT
--- OUTSIDE RECORDS SUMMARY | 2025-03-07 13:40 | XMS_ITS | Referral Summary ---
Author Organization [facility] Address [address] [place] [address] Care Team Providers Care Wood Barker Name Role Phone Tito Gilbert Primary Care Provider [phone] Allergies Active Allergy Reactions Criticality Noted Date [...] of Treatment Not on file Insurance MEDICARE [facility] Care Teams Wood Barker Relationship Specialty Start Date End Date Tito Gilbert [address] [place] [address] [address] [place] [address] PCP - General Hematology 07/21/22
--- OUTSIDE RECORDS SUMMARY | 2025-03-07 13:41 | XMS_ITS | Continuity of Care Document ---
Author Organization [facility] Address [address] [place] [address] Phone Care Team Providers Care Shoe Cobbler Name Role Phone Dawit MCCULLOUGH, GUILLERMO, Tito [...] Established 10 Mins Aug Duplex Scan-extrem Veins; [facility]/ Duplex Scan-extrem Veins; [facility]/ Endovenous Laser, 1st Vein Office/Outpt E&M Established 10 Mins - T elemedicine Duplex Scan-extrem Veins; [facility]/ Office/Oupt E&M New Pt 30 Mins Advance [...] Copied on Encounter Office/Outpt E&M [facility] [address] [facility], [address] [place] [address] Dr Harrell [address] [address], [id number], tel:[phone] CVR - CT - Rodney Venous insufficiency (chronic) (peripheral) Oct-3 4 Dawit MCCULLOUGH RVT, RPVI Robert. [address] [place] [address], [place], [place], [id number] , [place]. tel:[phone] Referring Provider: Tito Dooley, [address] [place] [address], [place], [address]. tel:[phone] [place] [facility], [address] [place], [place] [address]Je[place], [id number], [place] tel:[phone] CVR - CT - Rodney Chronic venous hypertension (idiopathic) with other complications of left lower extremity Oct-3 4 Dawit MCCULLOUGH RVT, RPVI Robert. [address] [place] [address], [place], [place], [id number] , [place]. tel:[phone] Referring Provider: Tito Dooley, [address] [place] [address] Suite [facility], [place], [address]. tel:[phone] Office/Outpt E&M Established 10 Mins [place] [facility], [address] [place] [address] [facility] [address] [address], [id number], [place] tel:[phone] CVR - CT - Rodney Chronic venous hypertension (idiopathic) without complications of left lower extremity Oct-1 3 Dawit MCCULLOUGH RVT, RPVI Robert. [address] [facility], [place] [address], [place], [place], [id number] , [place]. tel:[phone] Referring Provider: Tito Dooley, [address] [place] [address] [address], [place], [address]. tel:[phone] [place] [facility], [address] [place] [address] [address] [address], [id number], [place] tel:[phone] CVR - CT - Rodney Varicose veins of left lower extremity with pain 3 Jorge MCCULLOUGH FACS T [place] Oh. [address] [facility], [address], [place], [address], [place]. tel:[phone] Referring Provider: Tito Dooley, [address] [place] [address] [address], [place], [address]. tel:[phone] [place] [facility], [address] [place] [address] [address] [address], [id number], [place] tel:[phone] CVR - CT - Rodney Encntr for f/u exam aft trtmt for cond oth than malig neoplmChronic venous hypertension w oth comp of l low extrem Sep- 3 Jorge MCCULLOUGH FACS T [place] Oh. [address] [facility], [address], [place], [address], [place]. tel:[phone] Referring Provider: Tito Dooley, [address] [place] [address] [address], [place], [address]. tel:[phone] [facility], [address] [place] [address] [address] [address], [id number], [place] tel:[phone] CVR - [facility] Chronic venous hypertension w inflammation of l low extrem Sep- 3 Jogre MCCULLOUGH FACS T [place] Oh. [address] [facility], [address], [place], [address], [place]. tel:[phone] Referring Provider: Tito Dooley, [address] [place] [address] [address], [place], [address]. tel:[phone] Office/Outpt E&M Established 10 Mins - [facility] MD GRIER, [address] [place] [address] [address] [address], [id number], [place] tel:[phone] CVR - [facility] Chronic venous htn w oth comp of bilateral low extrm Jul- 3 Jorge Oh. [address] [place] [address], [place] [address], [place], [address], [place]. [phone] Referring Provider: Tito Dooley, [address] [place] [address] [address], [place], [address]. tel:[phone] [facility], [address] [place] [address] [address] [address], [id number], [place] tel:[phone] CVR - [facility] No Information 3 Jorge Oh. [address] [place] [address], [place], [address], [place]. [phone] Referring Provider: Tito Dooley, [address] [place] [address] [address], [place], [address]. tel:[phone] [facility], [address] [place] [address] [address], [id number], [place] tel:[phone] CVR - [facility] Chronic venous hypertension w oth comp of l low extrem 3 Jorge Oh. [address] [place] [address], [place] [address], [place], [address], [place]. [phone] Referring Provider: Tito Dooley, [address] [place] [address] [address], [place], [address]. tel:[phone] Office/Oupt E&M New Pt 30 Mins [facility], [address] [place] [address] [address] [address], [id number], [place] tel:[phone] CVR - [facility] Varicose veins of left lower extremities w oth complicationsP ain in left lower legPruritus, unspecified 3 Jorge Oh. [address] [place] [address], Suite [facility], [place], [address], [place]. tel:[phone] Referring Provider: Tito Gilbert MD E, [address], [place], [address]. tel:[phone] Family History Family Member Type Diagnosis Age At Onset No Information Payers Payer name Insurance type Covered libertarian ID Authorconner rose(s) Medicare ISATU TREVINO [id number] [facility] [id number] Social History Type Description Quantity Date Captured [...]
--- OUTSIDE RECORDS SUMMARY | 2025-03-07 13:41 | XMS_ITS | Clinical Summary ---
Author Organization [facility] Address [address] [place] [address] Care Team Providers Care Auto Body Worker Name Role Phone Tito Gilbert MD Primary Care Provider [phone] Allergies Active Allergy Reactions Criticality Noted Date Comments Bee Venom Anaphylaxis High 08/09/2022 Sulfamethoxazole-Trimethoprim Rash/Dermatitis Low 0 07/24/2022 Medications Medication Sig Dispensed Refills Start Date End Date Status Suboxone 8-2 MG per SL film 2 times a day. 04/25/2024 Active ondansetron (ZOFRAN-ODT) 4 MG disintegrating tablet 1 tablet on the tongue and allow to dissolve Orally every 6 hours as needed for nausea 02/05/2024 Active diazepam (VALIUM) 5 MG tabletIndications:Cl austrophobia Take 1 tab 30 mins before MRI and have the 2nd tab available to take if needed in the MRI. Do not drive. 2 tablet 07/08/2024 Active sertraline (ZOLOFT) 25 MG tablet Take 1 tablet (25 mg total) by mouth. 02/17/2025 Active sertraline (ZOLOFT) 50 MG tablet Take 1 tablet (50 mg total) by mouth daily. 03/05/2024 Discontinue d(Dose adjustment) Active Problems Problem Noted Date Diagnosed Date Cervicalgia 07/30/2024 Deficit of vestibulo-ocular reflex 07/30/2024 Postconcussion syndrome 07/30/2024 Cervicogenic headache 07/30/2024 Malignant neoplasm of testicle 07/08/2024 Thoracic kyphosis 07/08/2024 Spondylosis of lumbar spine 07/08/2024 Scoliosis 07/08/2024 Memory problem 07/08/2024 Injury of head and neck 07/08/2024 Drug-induced nausea and vomiting 07/08/2024 Family history of substance dependence Depressive disorder 07/08/2024 Pancreatitis 03/08/2005 Status post orchiectomy 12/20/2004 Encounters Date Type Department Care Team Description 02/27/2025 10:00 AM EDT Office Visit [facility] [address] [phone] Tyshawn Briones PA-C Cognitive change (Primary Dx); Postconcussion syndrome 02/27/2025 Travel from Last 3 Months Social History Tobacco Use Types Packs/Day Years Used Date Smoking Tobacco: Never Smokeless Tobacco: Never Tobacco Cessation:Counseling Given: Not Answered PHQ-2 Answer Date Recorded PHQ-2 Total Score 4 07/08/2024 Sex and Gender Information Value Date Recorded Sex Assigned at Not on file Gender Identity Not on file Sexual Orientation Not on file Last Filed Vital Signs Vital Sign Reading Time Taken Comments Blood Pressure 132/68 02/27/2025 9:56 AM EDT Pulse 84 02/27/2025 9:56 AM EDT Temperature - - Respiratory Rate - - Oxygen Saturation 97% 02/27/2025 9:56 AM EDT Inhaled Oxygen Concentration - - Weight 72.6 kg (160 lb) 02/27/2025 9:56 AM EDT Height 172.7 cm (5' 8 ) 02/27/2025 9:56 AM EDT Body Mass Index 24.33 02/27/2025 9:56 AM EDT Plan of Treatment Upcoming Encounters Date Type Department Care Team (Late st Contact Info) Description 04/29/2025 10:30 AM EDT Office Visit [facility] [address] [phone] Tyshawn Briones PA-C [address] [place] [address] [place] [address] Health Maintenance Due Date Last Done Comments [...] age to complete this topic Care Teams Auto Body Worker Relationship Specialty Start Date End Date Tito Gilbert MD [address] [place] [address] [place] [address] PCP - General 02/07/22
--- OUTSIDE RECORDS SUMMARY | 2025-03-07 13:41 | XMS_ITS ---
Author Organization Tito Gilbert III, MD Address [address] [place] [address] [address] [place] [address] Care Team Providers Care Refrigeration System Installer Name Role Phone Tito Gilbert Primary Care Provider [phone] Allergies Allergen (clinical drug ingredient) Drug/Non Drug Allergy documented on EMR Reaction Allergy Type Onset Date Status ketamine Ketamine Unknown Drug Allergy Active Bee Sting Unknown Allergy Active sulfamethoxazole / trimethoprim Bactrim rash Drug Allergy Active REASON FOR VISIT Mesenteric fibrosis, Chronic pain, Left shoulder pain, History of pancreatitis, History of testicular cancer Medications Medication SIG (Take, Route, Frequency, Duration) Notes Start Date End Date Status Cyclobenzaprine HCl 10 MG 1 tablet Orall y three times a day 04/12/2024 Active LORazepam 1 MG one tablet Orally ev jennifer four hours for anxiety before MRI for 2 days 02/12/2025 Active Sertraline HCl 50 MG 1 tablet Orally Onc e a day 07/06/2024 Active levoFLOXacin 500 MG 1 tablet Orally Once a day 01/16/2025 Active Suboxone 8-2 MG 8mg in the morning, 4mg in the afternoon, 8mg in the evening Sublingual Every 8 hours Active Ondansetron 4 MG 1 tablet on the tong ue and allow to dissolve Orally every 6 hours as needed for nausea 02/05/2024 Active Readi-Cat 2 2 % take 450 ml Orally o ne time Active fentaNYL 75 MCG/HR 1 patch to skin Transdermal every 72 hours 10/23/2023 Active EpiPen 2-Alvaro 0.3 MG/0.3ML as directed In jection USE DIRECTED Active LORazepam 1 MG 1 tablet Orally ever y 3 hours prn anxiety prior to MRI 07/23/2024 Active Amoxicillin-Pot Clavulanate 875-125 MG 1 tablet Orally every 12 hrs 02/05/2025 Active Social History Tobacco Use: Social History Observation Description Date Details (start date - stop date) Never Smoker NA - NA Sex Assigned At : Social History Observation Description Sex Assigned At Male Tobacco Control (Standard) Question Answer Notes Tobacco use: Nonsmoker Additional Findings: Tobacco non-user Aggressive nonsmoker Vital Signs Temperature 99.5 degrees Fahrenheit 02/13/20 25 Blood pressure systolic 133 mm Hg 02/13/20 25 Blood pressure diastolic 70 mm Hg 025 Heart Rate 94 /min 02/12/2025 Height 68 in 02/12/2025 Weight 154 lbs 02/12/2025 BMI 23.41 kg/m2 02/12/2025 Encounters Encounter Location Date Provider Diagnosis Tito Gilbert III, MD [address] [place] [address] [place] [address] 02/12/2025 Tito Gilbert History of pneumonia Z87.01 ; Mesenteric fibrosis K66.8 ; Back pain, unspecified back location, unspecified back pain laterality, unspecified chronicity M54.9 ; Left rotator cuff tear arthropathy M12.812 and Other and unspecified hyperlipidemia E78.5 Assessments Encounter Date Diagnosis (ICD Code) Assessment Notes Treat ment Notes Treatment Clinical Notes 02/12/2025 History of pneumonia (ICD-10 - Z87.01) He is recovering from the recent pneumonia and a follow-up chest x-ray has been ordered. 02/12/2025 Mesenteric fibrosis (ICD-10 - K66.8) He is now involved with a risk management consultant at [facility]. I do not have a report from them at this time. He will continue on his current therapies and follow-up with a local strategic insights lead. 02/12/2025 Back pain, unspecified back location, unspecified back pain laterality, unspecified chronicity (ICD-10 - M54.9) His back pain has resolved and his main complaint is in his abdomen. He was continueed on Suboxone. 02/12/2025 Left rotator cuff tear arthropathy (ICD-10 - M12.812) There is been no change in his shoulder situation. He experiences pain in her shoulder with elevation above the horizon. He has been referred to orthopedics. 02/12/2025 Other and unspecifie d hyperlipidemia (ICD-10 - E78.5) Comprehensive blood work with a fasting lipid profile is being done periodically. No change in his medications was made today. Plan Of Treatment Medication Medication Name Sig Start Date Stop Date Notes Cyclobenzaprine HCl 10 MG 1 tablet Orall y three times a day 04/12/2024 LORazepam 1 MG one tablet Orally ev jennifer four hours for anxiety before MRI for 2 days 02/12/2025 Sertraline HCl 50 MG 1 tablet Orally Once a day 07/06/2024 levoFLOXacin 500 MG 1 tablet Orally Once a day 01/16/2025 Suboxone 8-2 MG 8mg in the morning, 4mg in the afternoon, 8mg in the evening Sublingual Every 8 hours Ondansetron 4 MG 1 tablet on the tong ue and allow to dissolve Orally every 6 hours as needed for nausea 02/05/2024 Readi-Cat 2 2 % take 450 ml Orally one time fentaNYL 75 MCG/HR 1 patch to skin Burden sdermal every 72 hours 10/23/2023 EpiPen 2-Alvaro 0.3 MG/0.3ML as directed In jection USE DIRECTED LORazepam 1 MG 1 tablet Orally ever y 3 hours prn anxiety prior to MRI 07/23/2024 Amoxicillin-Pot Clavulanate 875-125 MG 1 tablet Orally every 12 hrs 02/05/2025 Pending Test Test Name Order Date XR CHEST 2 VIEW PA & LAT 02/12/2025 Next Appt Details Follow Up: 6 Weeks, Reason: ov review cxr Provider Name:Tito Gilbert, 03/26/2025 10:30:00 AM, [address] [place] [address] [place], [place], [phone], Provider Name:Tito Gilbert, 04/30/2025 10:30:00 AM, [address] [place] [address] [place], [place], [phone], Provider Name:Tito Dubonne, 01/01/2026 11:00:00 AM, [address] [facility] [place], [address], Progress Notes * Aneudy CANCINO KDOB:[birth year] (64 yo M)Acc No.[id number]:02/12/2025 Progress Notes Patient:?Aneudy CANCINO Yessenia Provider:?Tito Gilbert MD :1960???Age:64 Y???Sex:Male Melo e:02/12/2025 Address:[address] [place] [address], [id number] Subjective: * Chief Complaints: * ???Mesenteric fibrosisChroni c painLeft shoulder painHistory of pancreatitisHistory of testicular cancer * HPI: ???COVID-19 Screening:?He returns for management of numerous medical issues.? He recently went to [facility] where he had a consultation concerning the mesenteric fibrosis.? The physician there did, that the mesentery looked abnormal.? They have ordered testing and a follow-up visit in the near future.? He continues to have the upper abdominal pain.? I made the appointment with this patient.? Only one physician should prescribe pain medication and that was currently Dr. Junior.? He agreed to this.? He seems otherwise stable.? He has lost some weight and we discussed diet and nutrition at length. ?Questions?Have you had any new onset fever, chills, cough, congestion, sore throat, shortness of breath, muscle aches??No * ROS:?General/Constitutional:?pain?He reports that his spine and pancreas are now pain free.? The only pain he is experiencing is in the upper abdomen which he describes as very severe..?Chills?denies.?Fatigue?admits.?Fever?denies.?ENT:?Decreased hearing?mild.?Respiratory:?Cough?denies.?Cardiovascular:?Chest pain with exertion?denies.?Dyspnea on exertion?denies.?Shortness of breath?denies.?Gastrointestinal:?Constipation?occasional.?Decreased appetite?denies.?Diarrhea?denies.?Heartburn?denies.?Nausea?denies.?Rectal bleeding?denies.?Vomiting?denies.?Hematology:?bruising?denies.?petechiae?denies.?Swollen glands?none have been noted.?Genitourinary:?Frequent urination?once a night.?Musculoskeletal:?Muscle aches?denies.?Painful joints?denies.?Sciatica?denies.?Weakness?denies.?Skin:?Itching?denies.?Rash?denies.?Skin lesion(s)?denies.?Neurologic:?Difficulty speaking?denies.?Dizziness?denies.?Headache?denies.?Low back pain?denies.?Psychiatric:?Depressed mood?which is moderate.? * Medical History:? * Surgical History:?left orchi ectomy 1981radical lymph node dissection 1981right rotator cuff surgery Dr. Garcia 07/2014EGD w/ Bx and EUS Celiac Plexus Block 05/08/2023No history * Hospitalization/Major Diagno stic Procedure:?Pancreatitis 01/2021No history * Family History:?Father: mary e 80 yrs, CABAG, angioplasty,spinal stenosis, hypertension, hyperlipidemia, anxiety, diagnosed with Hyperlipidemia, HTN.?Mother: alive 75 yrs, DJD, hypertension, diagnosed with HTN.?1 brother(s) , 3 sister(s) - healthy. .? He has no children. * Social History:?Tobacco Use:?Tobacco Control (Standard)?Tobacco use:?Nonsmoker ?Additional Findings: Tobacco non-user?Aggressive nonsmoker ???He was born in [place], [place]. * Medications:?TakingLORazepam 1 MG Tablet 1 [...] Orally three times a day Sertraline HCl 50 MG Tablet 1 tablet Orally Once a day levoFLOXacin 500 MG Tablet 1 tablet Orally Once a day Taking LORazepam 1 MG Tablet 1 tablet Orally [...] three times a day Taking Sertraline HCl 50 MG Tablet 1 tablet Orally Once a day Taking levoFLOXacin 500 MG Tablet 1 tablet Orally Once a day DiscontinuedAmoxicillin-Pot Clavulanate 875-125 MG Tablet 1 tablet Orally every 12 hrs , stop date 02/19/2025Medication List reviewed and reconciled with the patientDiscontinued Amoxicillin-Pot Clavulanate 875-125 MG Tablet 1 tablet Orally every 12 hrs , stop date 02/19/2025Medication List reviewed and reconciled with the patient * Allergies:?Bactrim: rash - A llergyBee StingKetamineno[Allergies Verified] Objective: * Vitals:?Ht: 68, Wt:154, BMI: 23.41, BP:133/70, HR:94, Temp:99.5, Ht-cm: 172.72, Wt-k.85. * Examination: ???General Examination: ?GENERAL APPEARANCE:?pleasant, well nourished, well developed, in no acute distress, Depressed appearing man.?HEAD:?atraumatic, normocephalic.?EYES:?eomi, perrla, anicteric, conjugate.?EARS:?normal.?NOSE:?septum intact.?ORAL CAVITY:?normal, unremarkable.?NECK/THYROID:?no jugular venous distention, no carotid bruit, thyroid normal.?LYMPH NODES:?no enlarged lymph nodes,spleen normal.?SKIN:?no suspicious lesions, anicteric.?HEART:?no clicks, gallops, murmurs, or rubs, regular rhythm, S1, S2 normal, no s3, or vascular bruits.?LUNGS:?clear to auscultation .?BREASTS:??no masses palpable bilaterally.?ABDOMEN:?bowel sounds normal, no ascites, no organomegaly, no mass, He reports tenderness to moderate palpation in upper abdomen.?RECTAL EXAM:?not examined.?MUSCULOSKELETAL:?extremities unremarkable, no clubbing, cyanosis or edema.?PERIPHERAL PULSES:?normal.?NEUROLOGIC:?alert and oriented, cranial nerves 2-12 grossly intact, deep tendon reflexes 2+ symmetrical, motor strength normal upper and lower extremities, sensory exam intact.?PSYCH:?alert, oriented, mood depressed, anxious appearing.? Assessment: * Assessment: 1.?Mesenteric fibrosis - K66 .8 (Primary)???Notes :He is now involved with a risk management consultant at [facility].? I do not have a report from them at this time.? He will continue on his current therapies and follow-up with a local strategic insights lead.???2.?History of pneumonia - Z87.01???Notes :He is recovering from the recent pneumonia and a follow-up chest x-ray has been ordered.???3.?Back pain, unspecified back location, unspecified back pain laterality, unspecified chronicity - M54.9???Notes :His back pain has resolved and his main complaint is in his abdomen. He was continueed on Suboxone.???4.?Left rotator cuff tear arthropathy - M12.812???Notes :There is been no change in his shoulder situation. He experiences pain in her shoulder with elevation above the horizon. He has been referred to orthopedics.???5.?Other and unspecified hyperlipidemia - E78.5???Notes :Comprehensive blood work with a fasting lipid profile is being done periodically. No change in his medications was made today.??? Plan: * Treatment: 2.?Others? Continue Amoxicillin-Pot Clavulanate Tablet, 875-125 MG, 1 tablet, Orally, every 12 hrs;?Continue LORazepam Tablet, 1 MG, 1 tablet, Orally, every 3 hours prn anxiety prior to MRI;?Continue EpiPen 2-Alvaro Solution Auto-injector, 0.3 MG/0.3ML, as directed, Injection, USE DIRECTED;?Continue Readi-Cat 2 Suspension, 2 %, take 450 [...] 50 MG, 1 tablet, Orally, Once a day;?Continue levoFLOXacin Tablet, 500 MG, 1 tablet, Orally, Once a day;?Start LORazepam Tablet, 1 MG, one tablet, Orally, every four hours for anxiety before MRI, 2 days, 8, Refills 0.?? * Procedure Codes:? * Follow Up:?6 Weeks (Reason: ov review cxr) * Images: * Sign off status: Completed true * Provider:?Tito Gilbert MD Date:?01/25 Generated for Amosi naldo/Harpreet/eTransmitting on:?03/07/2025 01:40 PM EDT History and Physical Notes * HPI (History of Present Illness) Category Sub-Category Detail Notes COVID-19 Screening Questions Have you had any new onset fever, chills, cough, congestion, sore throat, shortness of breath, muscle aches?: No Examination Category Sub-Category Detail Notes General Examination GENERAL APPEARANCE: pleasant , well nourished, well developed, in no acute distress, Depressed appearing man HEAD: atraumatic, normocep halic EYES: eomi, perrla, anicte dai, conjugate EARS: normal NOSE: septum intact NECK/THYROID: no jugular venous di stention, no carotid bruit, thyroid normal HEART: no clicks, gallops, murmurs, or rubs, regular rhythm, S1, S2 normal, no s3, or vascular bruits LUNGS: clear to auscultatio n ABDOMEN: bowel sounds normal, no ascites, no organomegaly, no mass, He reports tenderness to moderate palpation in upper abdomen NEUROLOGIC: alert and oriented, cranial nerves 2-12 grossly intact, deep tendon reflexes 2+ symmetrical, motor strength normal upper and lower extremities, sensory exam intact SKIN: no suspicious lesion s, anicteric PERIPHERAL PULSES: normal BREASTS: no masses palpable b ilaterally MUSCULOSKELETAL: extremities unremark able, no clubbing, cyanosis or edema LYMPH NODES: no enlarged lymph no meka,spleen normal RECTAL EXAM: not examined PSYCH: alert, oriented, moo d depressed, anxious appearing ORAL CAVITY: normal, unremarkable
--- OUTSIDE RECORDS SUMMARY | 2025-03-07 13:41 | XMS_ITS | Encounter Summary ---
Author Organization [facility] Address [address] [place] [id number] Care Team Providers Care Industrial Relations Specialist Name Role Phone Tito Gilbert MD Primary Care Provider [phone] Encounter Details Date Type Department Care Team (Late st Contact Info) Description 07/08/[address] [facility] Neurology [address] [phone] Therese Bright MD [address] [place] [id number] Social History Tobacco Use Types Packs/Day Years [...] Description 04/29/2025 10:30 AM EDT Office Visit [facility] Neurology [address] [phone] Tyshawn Briones PA-C [address] [place] [phone] documented as of this encounter Visit Diagnoses Not on filedocumented in this encounter Care Teams Industrial Relations Specialist Relationship Specialty Start Date End Date Tito Gilbert MD [address] [place] [address] [address] [place] [address] PCP - General 02/07/22 documented as of this encounter
--- OUTSIDE RECORDS SUMMARY | 2025-03-07 13:41 | XMS_ITS | Encounter Summary ---
Author Organization [facility] Address [address] [place] [address] Care Team Providers Care Fishing Line Winding Machine Operator Name Role Phone Tito Gilbert MD Primary Care Provider [phone] Encounter Details Date Type Department Care Team (Late st Contact Info) Description 04/27/2022 Scanned Document [facility] Neurosurgery [address] [phone] Social History Tobacco Use Types Packs/Day Years Used Date Smoking Tobacco: Never Assessed Sex and Gender Information Value Date Recorded Sex Assigned at Not on file Gender Identity Not on file Sexual Orientation Not on file documented as of this encounter Plan of Treatment Upcoming Encounters Date Type Department Care Team (Late st Contact Info) Description 04/29/2025 10:30 AM EDT Office Visit [facility] Neurology Sports [address] [phone] Tyshawn Briones, PA-C [address] [place] [phone] documented as of this encounter Visit Diagnoses Not on filedocumented in this encounter Care Teams Fishing Line Winding Machine Operator Relationship Specialty Start Date End Date Tito Gilbert MD [address] [facility] [address] [place] [address] PCP - General 02/07/22 documented as of this encounter
--- OUTSIDE RECORDS SUMMARY | 2025-03-07 13:41 | XMS_ITS | Patient Health Record ---
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 Comprehensive blood work with a fasting lipid profile is being done periodically. No change in his medications was made today. 01/16/2025 Left rotator cuff tear arthropathy (ICD-10 - M12.812) There is been no change in his shoulder situation. He experiences pain in her shoulder with elevation above the horizon. He has been referred to orthopedics. 02/12/2025 Other and unspecified hyperlipidemia (ICD-10 - E78.5) Comprehensive blood work with a fasting lipid profile is being done periodically. No change in his medications was made today. 03/11/2024 Chronic pain disorder (ICD-10 - G89.4) He is now under the care of a pattern painter at [facility]. I have encouraged him to keep tthese appointments and try all modalities offered to him. He will continue on the Subboxone. 04/12/2024 Idiopathic acute pancreatitis without infection or necrosis (ICD-10 - K85.00) He has acute and chronic pancreatic pain. He is not interested in pancreatectomy. He will proceed to endoscopic celiac nerve block in April 2023 04/29/2024 Idiopathic chronic pancreatitis (ICD-10 - K86.1) He has chronic and frequent episodes of pancreatitis which have been treated with narcotic analgesics. 06/18/2024 Idiopathic acute pancreatitis without infection or necrosis (ICD-10 - K85.00) He has acute and chronic pancreatic pain. He is not interested in pancreatectomy. He will proceed to endoscopic celiac nerve block in April 2023 07/05/2024 Idiopathic acute pancreatitis without infection or necrosis (ICD-10 - K85.00) He has acute and chronic pancreatic pain. He is not interested in pancreatectomy. He will proceed to endoscopic celiac nerve block in April 2023 08/16/2024 Idiopathic acute pancreatitis without infection or necrosis (ICD-10 - K85.00) He has acute and chronic pancreatic pain. He is not interested in pancreatectomy. He will proceed to endoscopic celiac nerve block in April 2023 09/05/2024 Abdominal pain, unspecified abdominal location (ICD-10 - R10.9) He has been discussing various options with the pain specialist. He has agreed to a course of oral ketamine. 12/31/2024 Depression (ICD-10 - F32.9) His depression is worsening and his fluoxetine is not helping. It was stopped today and he was begun on sertraline. 01/16/2025 Mesenteric fibrosis (ICD-10 - K66.8) He has been told by the coremaker to obtain the abdomen comes and mesenteric fibrosis. He has been placed on tamoxifen for this. Due to the increasiing complexity of his pain and the lack of a history of current therapy have referred him to [facility] pain management gastroenterology. Second opinion. The fibrosis is thought to be the cause of the abdomiinal pain. A mesenteric nerve block by Dr. Villarreal at [facility] has been scheduled for the near future. If this does not relieve the pain they have been discussing doing a laparoscopic bioppsy of the mesentery at [facility]. 04/12/2024 Depression (ICD-10 - F32.9) His depression is worsening and his fluoxetine is not helping. It was stopped today and he was begun on sertraline. 04/29/2024 Mesenteric fibrosis (ICD-10 - K66.8) He has been told by the coremaker to obtain the abdomen comes and mesenteric fibrosis. He has been placed on tamoxifen for this. Due to the increasiing complexity of his pain and the lack of a history of current therapy have referred him to [facility] pain management gastroenterology. Second opinion. 06/18/2024 Mesenteric fibrosis (ICD-10 - K66.8) He has been told by the coremaker to obtain the abdomen comes and mesenteric fibrosis. He has been placed on tamoxifen for this. Due to the increasiing complexity of his pain and the lack of a history of current therapy have referred him to [facility] pain management gastroenterology. Second opinion. 08/16/2024 Mesenteric fibrosis (ICD-10 - K66.8) He has been told by the coremaker to obtain the abdomen comes and mesenteric fibrosis. He has been placed on tamoxifen for this. Due to the increasiing complexity of his pain and the lack of a history of current therapy have referred him to [facility] pain management gastroenterology. Second opinion. 12/31/2024 Mesenteric fibrosis (ICD-10 - K66.8) He has been told by the coremaker to obtain the abdomen comes and mesenteric fibrosis. He has been placed on tamoxifen for this. Due to the increasiing complexity of his pain and the lack of a history of current therapy have referred him to [facility] pain management gastroenterology. Second opinion. The fibrosis is thought to be the cause of the abdomiinal pain. A mesenteric nerve block by Dr. Villarreal at [facility] has been scheduled for the near future. If this does not relieve the pain they have been discussing doing a laparoscopic bioppsy of the mesentery at [facility]. 04/12/2024 Mesenteric fibrosis (ICD-10 - K66.8) He has been told by the coremaker to obtain the abdomen comes and mesenteric fibrosis. He has been placed on tamoxifen for this. Due to the increasiing complexity of his pain and the lack of a history of current therapy have referred him to [facility] pain management gastroenterology. Second opinion. 04/12/2024 Other Plan Of Treatment Pending Test Test Name Order Date PROFILE, FASTING (COMPREHENSIVE METABOLI C) 04/24/2019 PROFILE, FASTING (COMPREHENSIVE METABOLI C) 12/31/2024 PROFILE, FASTING (COMPREHENSIVE METABOLI C) 01/22/2021 PROFILE, RANDOM (COMPREHENSIVE METABOLIC ) 08/31/2020 PROFILE, RANDOM (COMPREHENSIVE METABOLIC ) 01/20/2025 PROFILE, RANDOM (COMPREHENSIVE METABOLIC ) 08/02/2019 PROFILE, RANDOM (COMPREHENSIVE METABOLIC ) 07/04/2018 PROFILE, RANDOM (COMPREHENSIVE METABOLIC ) 01/16/2025 PROFILE, RANDOM (COMPREHENSIVE METABOLIC ) 02/07/2022 PROFILE, RANDOM (COMPREHENSIVE METABOLIC ) 01/29/2021 PROFILE, RANDOM (COMPREHENSIVE METABOLIC ) 06/28/2018 PROFILE, RANDOM (COMPREHENSIVE METABOLIC ) 05/14/2021 PROFILE, RANDOM (COMPREHENSIVE METABOLIC ) 02/05/2024 PROFILE, RANDOM (COMPREHENSIVE METABOLIC ) 09/23/2022 PROFILE, RANDOM (COMPREHENSIVE METABOLIC ) 02/03/2021 PROFILE, RANDOM (COMPREHENSIVE METABOLIC ) 03/11/2021 HEMOGLOBIN A1C (GLYCOHEMOGLOBIN) 018 AMYLASE 02/03/2021 AMYLASE 01/22/2021 AMYLASE 03/11/2021 AMYLASE 08/31/2020 AMYLASE 08/02/2019 AMYLASE 02/07/2022 AMYLASE 07/04/2018 AMYLASE 01/29/2021 AMYLASE 06/28/2018 AMYLASE 09/23/2022 LIPASE 06/28/2018 LIPASE 01/29/2021 LIPASE 09/23/2022 LIPASE 02/03/2021 LIPASE 01/22/2021 LIPASE 03/11/2021 LIPASE 08/31/2020 LIPASE 08/02/2019 LIPASE 02/07/2022 LIPASE 07/04/2018 LIPID PANEL 04/24/2019 LIPID PANEL 01/22/2021 GGT 09/23/2022 PSA, TOTAL 09/27/2021 PSA, TOTAL 12/31/2024 CBC w DIFF 12/31/2024 CBC w DIFF 07/04/2018 CBC w DIFF 06/28/2018 CBC w DIFF 01/29/2021 CBC w DIFF 02/07/2022 CBC w DIFF 02/03/2021 CBC w DIFF 04/24/2019 CBC w DIFF 03/11/2021 CBC w DIFF 09/23/2022 CBC w DIFF 01/16/2025 CBC w DIFF 01/22/2021 CBC w DIFF 08/31/2020 CBC w DIFF 05/14/2021 CBC w DIFF 08/02/2019 SED RATE (ESR) 02/07/2022 CT ABD W&WO CONTRAST 02/04/2021 CT ABD & PELVIS WITH CONTRAST 02/05/2024 CT ABD & PELVIS NO CONTRAST 04/13/2022 CT BRAIN NO CONTRAST 02/03/2025 CT BRAIN WITH CONTRAST 01/29/2025 MRI LUMBAR SPINE NO CONTRAST 07/18/2018 MRI LUMBAR SPINE NO CONTRAST 05/09/2022 MRI LUMBAR SPINE NO CONTRAST 12/31/2018 MRI THORACIC SPINE NO CONTRAST 8 MRI THORACIC SPINE NO CONTRAST MRI THORACIC SPINE NO CONTRAST 9 XR CHEST 2 VIEW PA & LAT 02/12/2025 XR CHEST 2 VIEW PA & LAT 04/06/2015 XR CHEST 2 VIEW PA & LAT 01/20/2025 XR CHEST 2 VIEW PA & LAT 01/16/2025 XR HIP LT 03/15/2023 US ABD 02/04/2021 US LEG LT VENOUS DOPPLER 04/19/2018 CBC WITH AUTO DIFF 01/20/2025 CBC WITH AUTO DIFF 02/05/2024 INFLUENZA A/B & RSV BY PCR 01/16/2025 Lipid Panel 12/31/2024 Amylase 05/14/2021 Amylase 02/05/2024 Amylase 01/20/2025 Amylase 01/16/2025 Lipase 01/16/2025 Lipase 05/14/2021 Lipase 02/05/2024 Lipase 01/20/2025 Blood Culture X2 01/16/2025 Urine Culture 01/16/2025 COVID-19 ID NOW ([place]) 01/16/2025 Next Appt Details Provider Name:Tito Gilbert, 03/26/2025 10:30:00 AM, [address] [facility] [address], [place], [address], Provider Name:Tito Gilbert, 04/30/2025 10:30:00 AM, [address] [facility] [address], [place], [address], Provider Name:Tito Gilbert, 01/01/2026 11:00:00 AM, [address] [facility] [place] [place], [address], Insurance Providers Payer Name Payer Address Payer Phone Subscriber Number Group Number Insured Name Patient Relationship to Insured Coverage Start Date Coverage End Date MEDICARE N[place] [address] [place] [phone] [id number] Porsha Aneudy Self - patient is the insured [address] [facility] [place] [phone] [id number] Tirsosamantha Aneudy Self - patient is the insured [employer] [address] [place] [phone] [id number] Aneudy Story Self - patient is the insured Medical (General) History Medical History History ICD Code ideopathic pancreatitis chronic neck pain low back pain Left L4-5 foraminal stenos is mononucleosis left rotator cuff tear history of testicular cancer in [facility] Surgical History Surgery Date(Month/Year) No history EGD w/ Bx and EUS Celiac Plexus Block right rotator cuff surgery Dr. Garcia 2013 radical lymph node dissection 1981 left orchiectomy 1981 Hospitalization History Reason Date(Month/Year) No history Pancreatitis 01/2021
--- OUTSIDE RECORDS SUMMARY | 2025-03-07 13:41 | XMS_ITS ---
Author Organization Tito Gilbert III, MD Address [address] [place] [address] [place] [address] Care Team Providers Care Physician Practice Administrator Name Role Phone Tito Gilbert Primary Care Provider [phone] Medications Medication SIG (Take, Route, Frequency, Duration) Notes Start Date End Date Status Amoxicillin-Pot Clavulanate 875-125 MG 1 tablet Orally every 12 hrs for 14 days 02/05/2025 02/19/2025 Active Social History Sex Assigned At : Social History Observation Description Sex Assigned At Male Encounters Encounter Location Date Provider Diagnosis Tito Gilbert III, MD [address] [place] [address] [place] [address] 02/05/2025 Tito Gilbert Plan Of Treatment Medication Medication Name Sig Start Date Stop Date Notes Amoxicillin-Pot Clavulanate 875-125 MG 1 tablet Orally every 12 hrs for 14 days 02/05/2025 02/19/2025 Next Appt Details Provider Name:Tito Gilbert, 03/26/2025 10:30:00 AM, [address] [place] [address] [address], [place], [address], Provider Name:Tito Gilbert, 04/30/2025 10:30:00 AM, [address] [place] [address] [address], [place], [address], Provider Name:Tito Gilbert, 01/01/2026 11:00:00 AM, [address] [place] [address] [address], [place], [address], Progress Notes * Aneudy CANCINO KDOB:[birth year] (64 yo M)Acc No.[id number]:02/05/2025 Patient:?Aneudy CANCINO :1960???Age:64 Y???Sex:Male Address:[address], [place] [address] * Refills? Start Amoxicillin-Pot Clavulanate Tablet, 875-125 MG, Orally, 28 Tablet, 1 tablet, every 12 hrs, 14 days, Refills=0 * true * Date:? Generated for Natalia hitchcock/Harpreet/eTvitorsmitting on:?03/07/2025 01:41 PM EDT
== END 2025-03-07 14:16 | disposition home or self-care (01) ==
LOC: HO.HCC 13:13
PROVIDERS: PCP Internal Medicine Medical Oncology; Visit Provider Internal Medicine
DX: F11.20 Opioid dependence, uncomplicated (principal); Z51.81 Encounter for therapeutic drug level monitoring
CPT/HCPCS: 99213

== ENCOUNTER → 2025-03-07 13:13 | Outpatient (BNVA) | payer MEDICARE, OTHER, SELFPAY | PROVIDERS: PCP Internal Medicine Medical Oncology; Visit Provider Internal Medicine | DX: F11.20 Opioid dependence, uncomplicated (principal) | CPT/HCPCS: 80307; 99212 ==

== ENCOUNTER 2025-05-07 13:25 | Outpatient (AMB) | payer MEDICARE, OTHER, SELFPAY ==
--- NOTE | 2025-05-07 13:50 | A.OFFVIS_ITS ---
Intake Visit Reasons: MAT Allergies bee stings Allergy (Unknown, Uncoded 03/07/25 13:49) Anaphylaxis sulfa Allergy (Unknown, Uncoded 03/07/25 13:49) serum sickness HPI Comments Details: He has been seen for possible lymphoma at [facility]. He has had sclerosing mesenteric lymphadenitis. He has had good success with current dose. 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 Return as scheduled. Medications: New buprenorphine-naloxone 8-2 mg (Suboxone) 1 film sublingual BID 30 days 60 ea 2RF Coding Level of Care Code Est Pt Level 3 (36760) Diagnoses Uncomplicated opioid dependence F11.20 Substance use status: uncomplicated
--- OUTSIDE RECORDS SUMMARY | 2025-05-07 15:05 | XMS_ITS | Referral Summary ---
Author Organization [facility] Address [address] [place] [address] Care Team Providers Care Ingot Supervisor Name Role Phone Tito Gilbert Primary Care Provider [phone] Allergies Active Allergy Reactions Criticality Noted Date [...] of Treatment Not on file Insurance MEDICARE [facility] Care Teams Ingot Supervisor Relationship Specialty Start Date End Date Tito Gilbert [address] [place] [address] [address] [place] [address] PCP - General Hematology 07/21/22
== END 2025-05-07 14:21 | disposition home or self-care (01) ==
LOC: HO.HCC 13:25
PROVIDERS: PCP Internal Medicine Medical Oncology; Visit Provider Internal Medicine
DX: F11.20 Opioid dependence, uncomplicated (principal)
CPT/HCPCS: 99213

== ENCOUNTER → 2025-05-07 13:25 | Outpatient (BNVA) | payer MEDICARE, OTHER, SELFPAY | PROVIDERS: PCP Internal Medicine Medical Oncology; Visit Provider Internal Medicine | DX: F11.20 Opioid dependence, uncomplicated (principal) | CPT/HCPCS: 99212 ==

== ENCOUNTER 2025-06-13 14:39 | Outpatient (REF) | payer OTHER, MEDICARE, SELFPAY ==
--- OUTSIDE RECORDS SUMMARY | 2025-04-03 09:30 | XMS_ITS | Continuity of Care Document ---
Author Organization [facility] Address [address] [place] [address] Phone Care Team Providers Care Bedspread Folder Name Role Phone Dawit MCCULLOUGH, GUILLERMO, Tito [...] Not Available - Active Procedures Procedure Date PT Did Not Receive Services Duplex Scan-extrem Veins; Uni/ CT & [place] M Varithena, Single Truncal Vein - CT & [place] Varithena, Single Truncal Vein - CT & [place] Office/Outpt E&M Established 25 Mins- CT & [place] Duplex Scan-extrem Veins; Uni/ CT & [place] A Office/Outpt E&M Established 15 Mins- CT & [place] Duplex Scan-extrem Veins; Uni/ CT & MA O Office/Outpt E&M Established 10 Mins Aug Duplex Scan-extrem Veins; Uni/ Duplex Scan-extrem Veins; Uni/ Endovenous Laser, 1st Vein Office/Outpt E&M Established 10 Mins - T elemedicine Duplex Scan-extrem Veins; Uni/ Office/Oupt E&M New Pt 30 Mins Advance Directives Directive Yes / No Effective Date File Name No Information Encounters Encounter Description Practice Location Reason(s) For Visit Diagnoses Date Provider Providers Copied on Encounter [facility], [address] [place] [address] [facility] [address], [place], [id number], tel:[phone] [facility] [place] [facility] No Information 5 Dawit MCCULLOUGH RVT, ELSA Francis. [address] [place] [address], [place], [place], [id number] , [place]. tel:[phone] Referring Provider: Tito Dooley, [address] [place] [address], [place], [address]. tel:[phone] [facility], [address] [place] [address] Dr Harrell [address], [id number], [place] tel:[phone] [facility] [place] [facility] Encounter for follow-up examination after completed treatment for conditions other than malignant nePain in left lower leg 5 Dawit MCCULLOUGH RVT, ELSA Francis. [address] [place] [address], [place], [place], [id number] , [place]. tel:[phone] Referring Provider: Tito Dooley, [address] [place] [address] [address], [place], [address]. 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 [address] [place] [address] [address], [place], [place], [id number] , [place]. tel:[phone] Referring Provider: Tito Dooley, [address] [place] [address] [address], [place], [address]. tel:[phone] [facility], [address] [place] [address] [address] [address], [id number], [place] tel:[phone] [facility] [facility] Varicose veins of left lower extremity with other complications March-0 5 Dawit MCCULLOUGH RVT, ELSA Francis. [address] [place] [address], Suite [facility], [place], [place], [id number] , [place]. [phone] Referring Provider: Tito Dooley, [address] [place] [address] [address], [place], [address]. tel:[phone] Office/Outpt E&M Established 25 Mins- CT & [place] [facility], [address] [place] [address] [address] [facility] [place], [id number], [place] tel:[phone] [facility] [facility] Varicose veins of left lower extremity with other complications Feb- 5 Dawit MCCULLOUGH RVT, ELSA Francis. [address] [place] [address], [place], [place], [id number] , [place]. [phone] Referring Provider: Tito Dooley, [address] [place] [address] [address], [place], [address]. tel:[phone] [facility], [address] [place] [address] [facility] [place], [id number], [place] tel:[phone] [facility] - [place] [facility] Chronic venous hypertension (idiopathic) with other complications of left lower extremity Feb- 5 Dawit MCCULLOUGH RVT, RPVI Robert. [address] [place] [address] [address], [place], [place], [id number] , [place]. tel:[phone] Referring Provider: Tito Dooley, [address] [place] [address] [address], [place], [address]. tel:[phone] Office/Outpt E&M Established 15 Mins- CT & [place] [facility], [address] [place] [address] [address]Je[place], [id number], [place] tel:[phone] [facility] [facility] Venous insufficiency (chronic) (peripheral) Oct- 4 Dawit MCCULLOUGH RVT, ELSA Francis. [address] [address], [place], [place], [id number] , [place]. tel:[phone] Referring Provider: Tito Dooley, [address] [place] [address] [address], [place], [address]. tel:[phone] [facility], [address] [place] [address] Dr Harrell [address], [id number], [place] tel:[phone] [facility] [place] [facility] Chronic venous hypertension (idiopathic) with other complications of left lower extremity Oct- 4 Dawit MCCULLOUGH RVT, ELSA Francis. [address] [place] [address], [place], [place], [id number] , [place]. tel:[phone] Referring Provider: Tito Dooley, [address] [place] [address] Suite [facility], [place], [address]. tel:[phone] Office/Outpt E&M Established 10 Mins [facility], [address] [place] [address] Dr Harrell 1000[facility] 1000, [place], [id number], tel:[phone] [facility] [place] [facility] Chronic venous hypertension (idiopathic) without complications of left lower extremity Aug- 3 Dawit MCCULLOUGH RVT, RPVI Robert. [address] [place] [address], [place], [place], [id number] , [place]. tel:[phone] Referring Provider: Tito Dooley, [address] [place] [address] [address], [place], [address]. tel:[phone] [facility], [address] [place] [address] Dr [facility] [address], [id number], tel:[phone] [facility] [place] [facility] Varicose veins of left lower extremity with pain Aug- 3 Jorge Oh. [address] [facility], [address], [place], [address], [place]. tel:[phone] Referring Provider: Tito Dooley, [address] [place] [address] Suite [facility], [place], [address]. tel:[phone] [facility], [address] [place] [address] Dr [address], [place], [id number], [place] tel:[phone] [facility] [place] [facility] Encntr for f/u exam aft trtmt for cond oth than malig neoplmChronic venous hypertension w oth comp of l low extrem Sep-1 3 Jorge MCCULLOUGH FACS T CLARENCE Oh. [address] [place] [address], [place] [address], [place], [address], [place]. tel:[phone] Referring Provider: Tito Dooley, [address] [place] [address] Suite [facility], [place], [address]. tel:[phone] [facility] MD GRIER, [address] [place] [address] [address], [place], [id number], [place] tel:[phone] CVR - [facility] Chronic venous hypertension w inflammation of l low extrem Sep-1 3 Jorge MCCULLOUGH FACS T ELSA Oh. [address] [place] [address], [place] [address], [place], [address], [place]. tel:[phone] Referring Provider: Tito Dooley, [address] [place] [address] Suite [facility], [place], [address]. tel:[phone] Office/Outpt E&M Established 10 Mins - [facility], [address] [place] [address] [address], [place], [id number], [place] tel:[phone] CVR - [facility] Chronic venous htn w oth comp of bilateral low extrm Sep-0 3 Jorge MCCULLOUGH FACS T ELSA Oh. [facility], Suite [facility], [place], [address], [place]. tel:[phone] Referring Provider: Tito Dooley, [address] [place] [address] [address], [place], [address]. tel:[phone] [facility], [address] [place] [address] [address], [place], [id number], [place] tel:[phone] [facility] [facility] No Information 3 Jorge MCCULLOUGH FACS T ELSA Oh. [address] [facility], [address] [place] [address], [place], [address], [place]. tel:[phone] Referring Provider: Tito Dooley, [address] [place] [address] [address], [place], [address]. tel:[phone] [facility] MD GRIER, [address] [place] [address] [facility] [address] 1000, [place], [id number], [place] tel:[phone] CVR - [facility] Chronic venous hypertension w oth comp of l low extrem 3 Jorge MCCULLOUGH FACS T ELSA Oh. [address] [address], [place], [address], [place]. tel:[phone] Referring Provider: Tito Dooley, [address] [place] [address] [address], [place], [address]. tel:[phone] Office/Oupt E&M New Pt 30 Mins [facility] MD GRIER, [address] [place] [address] Dr [address]rell [address], [place], [id number], [place] tel:[phone] [facility] [facility] Varicose veins of left lower extremities w oth complicationsP ain in left lower legPruritus, unspecified 3 Jorge MCCULLOUGH FACS T ELSA Oh. [address] [facility], [facility] [address], [place], [address], [place]. tel:[phone] Referring Provider: Tito Dooley, [address] [place] [address] [address], [place], [address]. tel:[phone] Family History Family Member Type Diagnosis Age At Onset No Information Payers Payer name Insurance type Covered green party ID Authoriza tiivonne(s) Medicare ISATU TREVINO [id number] [facility] [id number] Social History Type Description Quantity Date Captured Comments Sex Male Smoking Status No Information Chief Complaint And Reason For Visit No [...] Information Instructions Date Instruction Additional Infor mation Diet education Related to Essen tial (primary) hypertension Exercise education Related to Es sential (primary) hypertension Patient education booklet given Related to Varicose veins of left lower extremity with other complications Pre and post instruc tions reviewed and provided Related to Varicose veins of left lower extremity with other complications Lifestyle education Related to E ssential (primary) hypertension Diet education Related to Body mass index (BMI) 24.0-24.9, adult Giving Encouragement to exercise Related to Body mass index (BMI) 24.0-24.9, adult Lifestyle education Related to B jocelyn mass index (BMI) 24.0-24.9, adult Compression stocking usage as conservative measure Related [...]
--- OUTSIDE RECORDS SUMMARY | 2025-06-12 09:50 | XMS_ITS ---
Author Organization Tito Gilbert III, MD Address [address] [facility] [place] [address] Care Team Providers Care Director Airport Operations Name Role Phone Tito Gilebrt Primary Care Provider REASON FOR VISIT Foot Swelling Social History Sex Assigned At : Social History Observation Description Sex Assigned At Male Encounters Encounter Location Date Provider Diagnosis Tito Gilbert III, MD [address] [place] [address] [place] [address] 06/12/2025 Tiot Gilbert Plan Of Treatment Next Appt Details Provider Name:Tito Gilbert, 08/20/2025 10:15:00 AM, [address] [place] [address] [place], [address], Provider Name:Tito Gilbert, 01/01/2026 11:00:00 AM, [address] [place] [address] [place], [address], Progress Notes * Aneudy CANCINOOB:[birth year] (65 yo M)Acc No.[id number]:06/12/2025 Patient: Aneudy DAWSON :1960 A ge:65 Y S ex:Male Address:[address] [place] [address], [place] [address] * true * Date: Generated for Natalia hitchcock/Harpreet/eTransmitting on: 0 06/13/2025 02:43 PM EDT
--- OUTSIDE RECORDS SUMMARY | 2025-06-13 14:43 | XMS_ITS ---
Author Name [facility] Organization Unknown History of Medication Use Medication Directions Dispensed Refills Start Date End Date Stat us sertraline (ZOLOFT) 50 MG tablet Take 1 tablet (50 mg total) by mouth daily. 03/05/2024 08/06/2024 active Allergies Allergen Reaction Severity Comment Documented Date Source Statu s BEE VENOM ANAPHYLAXIS 08/09/2022 [facility] active SULFAMETHOXAZOLE-TRIME THOPRIM RASH/DERMATITIS 07/24/2022 [facility] active Problems Problem Status Onset Date Problem Type Date of Resolution Source Family history of substance dependence active 2024-07-08 ProblemAct [facility] Pancreatitis active 2005-03-08 ProblemAct [facility] Injury of head and neck active 2024-07-08 ProblemAct [facility] Postconcussion syndrome active 2024-07-30 ProblemAct [facility] Memory problem active 2024-07-[address] Status post orchiectomy active 2004-12-20 ProblemAct [facility] Cognitive change active EncounterDiagnosisAct [facility] Cervicalgia active 2024-07-30 ProblemAct [facility] Drug-induced nausea and vomiting active 2024-07-08 ProblemAct [facility] Malignant neoplasm of testicle active 2024-07-08 ProblemAct [facility] Scoliosis active 2024-07-08 ProblemAct [facility] Spondylosis of lumbar spine active 2024-07-08 ProblemAct [facility] Cervicogenic headache active 2024-07-30 ProblemAct [facility] Depressive disorder active 2024-07-08 ProblemAct [facility] Thoracic kyphosis active 2024-07-08 ProblemAct [facility] Deficit of vestibulo-ocular reflex active 2024-07-30 ProblemAct [facility] Encounters Encounter Type Encounter Reason Primary Diagnosis Location Date Ambulatory Other symptoms and signs involving cognitive functions and awareness Other symptoms and signs involving cognitive functions and awareness [facility] 06/06/2025 Ambulatory Other symptoms and signs involving cognitive functions and awareness Other symptoms and signs involving cognitive functions and awareness [facility] 02/27/2025 Ambulatory Cervicalgia [facility] 09/03/2024 Ambulatory Cervicalgia [facility] 08/28/2024 Ambulatory Cervicalgia [facility] 08/21/2024 Ambulatory Cervicalgia [facility] 08/14/2024 Ambulatory [facility] 08/13/2024 Ambulatory Cervicalgia [facility] 08/08/2024 Ambulatory Cervicalgia [facility] 07/30/2024 Ambulatory [facility] 07/08/2024 Ambulatory Concussion without loss of consciousness, initial encounter Concussion without loss of consciousness, initial encounter [facility] 07/08/2024 Ambulatory Acute pancreatit is without necrosis or infection, unspecified [facility] 02/15/2022 Care Team Organization Name Specialty Phone Email Start Date End Da te [facility] Tito Moreno Primary [facility] 07/08/2024 [facility] Tito Moreno Primary Care 02/15/2022 [facility] TITO MORENO Primary Care 02/15/2022
--- OUTSIDE RECORDS SUMMARY | 2025-06-13 14:43 | XMS_ITS | Encounter Summary ---
Author Organization [facility] Address [address] [place] [address] Care Team Providers Care Pourer Name Role Phone Tito Gilbert MD Primary Care Provider [phone] Encounter Details Date Type Department Care Team (Late st Contact Info) Description 07/08/2024 Scanned Document Formerly [facility] Neurology Sports [address] [address] Therese Bright MD [address] [place] [id number] Social History Tobacco Use Types Packs/Day Years Used Date Smoking Tobacco: Never Smokeless Tobacco: Never PHQ-2 Answer Date Recorded PHQ-2 Total Score 4 07/08/2024 Sex and Gender Information Value Date Recorded Sex Assigned at Not on file Legal Sex Male 6:41 PM EST Gender Identity Not on file Sexual Orientation Not on file documented as of this encounter Functional Status * Over the past 2 weeks, how often have you been bothered by any of the following problems? Question Answer Date of Assessment Author Patient Health Questionnaire-2 Score 4 06/27 12:00 PM Mariel Ibrahim MA * Question Answer Date of Assessment Author Patient Health Questionnaire-9 Score 14 06/27 12:00 PM Mariel Ibrahim MA * Question Answer Date of Assessment Author Little interest or pleasure in doing things Several days 07/08/2024 12:00 PM Mariel Ibrahim MA Feeling down, depressed, or hopeless Nearly every day 07/08/2024 12:00 PM Mariel Ibrahim MA Trouble falling or staying asleep, or sleeping too much More than half the days 07/08/2024 12:00 PM Mariel Ibrahim MA Feeling tired or having little energy Several days 07/08/2024 12:00 PM Mariel Ibrahim MA Poor appetite or overeating Several days 07/08/2024 12:00 PM Mariel Ibrahim MA Feeling bad about yourself - or that you are a failure or have let yourself or your family down More than half the days 07/08/2024 12:00 PM Mariel Ibrahim MA Trouble concentrating on things, such as reading the newspaper or watching television Several days 07/08/2024 12:00 PM Mariel Ibrahim MA Moving or speaking so slowly that other people could have noticed? Or the opposite - being so fidgety or restless that you have been moving around a lot more than usual. Several days 07/08/2024 12:00 PM Mariel Ibrahim MA Thoughts that you would be better off or hurting yourself in some way More than half the days 07/08/2024 12:00 PM Mariel Ibrahim MA How difficult have these problems made it for you to do your work, take care of things at home, or get along with other people? Somewhat difficult 07/08/2024 12:00 PM Mariel Ibrahim MA documented as of this encounter Plan of Treatment Not on file documented as of this encounter Visit Diagnoses Not on filedocumented in this encounter Care Teams Pourer Relationship Specialty Start Date End Date Tito Gilbert MD [address] [address] PCP - General 02/07/22 documented as of this encounter
--- OUTSIDE RECORDS SUMMARY | 2025-06-13 14:43 | XMS_ITS | Clinical Summary ---
Author Organization [address] Address [address] [place] [phone] Phone Care Team Providers Care Work Order Clerk Name Role Phone Tito Gilbert MD Primary Care Provider [phone] Social History Tobacco Use Types Packs/Day Years [...] COMMERCIAL GENERIC MEDICARE COMMERCIAL GENERIC Care Teams Work Order Clerk Relationship Specialty Start Date End Date Tito Gilbert MD [address] [place] [address] [place] [address] PCP - General Medical Oncology 05/03/24
--- OUTSIDE RECORDS SUMMARY | 2025-06-13 14:43 | XMS_ITS | Referral Summary ---
Author Organization [facility] Address [address] [place] [address] Care Team Providers Care Site Foreman Name Role Phone Tito Gilbert Primary Care Provider [phone] Allergies Active Allergy Reactions Criticality Noted Date [...] of Treatment Not on file Insurance MEDICARE [facility] Care Teams Site Foreman Relationship Specialty Start Date End Date Tito Gilbert [address] [place] [address] [address] [place] [address] PCP - General Hematology 07/21/22
[2025-06-13 15:07] LABS: MANUAL DIFF FLAG NO
[2025-06-13 15:19] LABS: Hematocrit 34.5 % (42.0-52.0); Hemoglobin 11.5 g/dl (14.0-18.0); Imm Gran Abs Auto 0.01 X10*3/uL (0.00-0.03); Imm Gran Pct Auto 0.2 % (0.0-0.4); Lymphocytes Absolute Auto 1.1 X10*3/uL (1.2-4.9); Mean Corpuscular HGB Conc 33.3 g/dl (31.0-36.0); Mean Corpuscular Hemoglobin 30.4 pg (27.0-33.0); Mean Corpuscular Volume 91.3 fL (80.0-98.0); NRBC Abs Auto 0.000 X10*3/uL (0.0-0.012); NRBC Pct Auto 0.0 /100WBC (0.0-0.2); Platelet Count 208 X10*3/uL (160-400); Red Blood Count 3.78 X10*6/uL (4.60-5.80); White Blood Count 4.1 X10*3/uL (4.8-10.8)
[2025-06-13 15:31] LABS: D Dimer High Sensitivity 220 NG/ML
[2025-06-13 15:40] LABS: Alanine Aminotransferase 17 U/L (0-40); Albumin Level 4.2 g/dL (3.5-5.0); Alkaline Phosphatase 56 U/L (39-117); Anion Gap 8 (12-20); Aspartate Amino Transferase 25 U/L (5-37); Blood Urea Nitrogen 21 mg/dL (9-16); Calcium 9.0 mg/dL (8.4-10.2); Carbon Dioxide 34 mmol/L (22-29); Chloride 103 mmol/L (96-108); Estimated Glomerular Filt Rate > 60; Potassium 4.8 mmol/L (3.3-5.1); Sodium 140 mmol/L (135-145); Total Protein 7.1 g/dL (6.5-8.0)
== END 2025-06-13 14:40 | disposition home or self-care (01) ==
LOC: HO.LAB 14:39
PROVIDERS: PCP Internal Medicine Medical Oncology; Visit Provider Internal Medicine Medical Oncology
DX: E78.5 Hyperlipidemia, unspecified (principal); R60.0 Localized edema
CPT/HCPCS: 36415; 80053; 85025; 85379; 85652

== ENCOUNTER 2025-08-20 14:57 | Outpatient (AMB) | payer MEDICARE, OTHER, SELFPAY ==
--- OUTSIDE RECORDS SUMMARY | 2025-06-11 12:15 | XMS_ITS ---
Author Organization Tito Gilbert III, MD Address [address] [place] [address] [place] [address] Care Team Providers Care Appliance Repairer Name Role Phone Dr. Tito Gilbert III Primary Care Provider REASON FOR VISIT Appointment Request Social History Sex Assigned At : Social History Observation Description Sex Assigned At Male Encounters Encounter Location Date Provider Diagnosis Tito Gilbert III, MD [address] [place] [address] [place] [address] 06/11/2025 Tito Gilbert Plan Of Treatment Next Appt Details Provider Name:Tito Gilbert , 08/25/2025 10:00:00 AM, [address] [place] [address] [place], [address], Provider Name:Tito Gilbert , 01/01/2026 11:00:00 AM, [address] [place] [address] [place], [address], Progress Notes * Aneudy CANCINO KDOB:[birth year] (65 yo M)Acc No.[id number]:06/11/2025 Patient: Aneudy DAWSON :1960 A ge:65 Y S ex:Male Address:[address] [place] [address], [place] [address] * true * Date: Generated for Natalia hitchcock/Harpreet/eTransmitting on: 0 08/20/2025 05:25 PM EDT
--- OUTSIDE RECORDS SUMMARY | 2025-06-12 09:50 | XMS_ITS ---
Author Organization Tito Gilbert III, MD Address [address] [place] [address] [place] [address] Care Team Providers Care Branch Service Associate Name Role Phone Dr. Tito Gilbert III Primary Care Provider [phone] REASON FOR VISIT Foot Swelling Social History Sex Assigned At : Social History Observation Description Sex Assigned At Male Encounters Encounter Location Date Provider Diagnosis Tito Gilbert III, MD [address] [place] [address] [place] [address] 06/12/2025 Tito Gilbert Plan Of Treatment Next Appt Details Provider Name:Tito Gilbert , 08/25/2025 10:00:00 AM, [address] [place] [address] [place], [address], Provider Name:Tito Gilbert , 01/01/2026 11:00:00 AM, [address] [place] [address] [place], [address], Progress Notes * Aneudy CANCINO KDOB:[birth year] (65 yo M)Acc No.[id number]:06/12/2025 Patient: Aneudy DAWSON :1960 A ge:65 Y S ex:Male Address:[address] [place] [address], [place] [address] * true * Date: Generated for Natalia hitchcock/Harpreet/eTransmitting on: 0 08/20/2025 05:24 PM EDT
--- OUTSIDE RECORDS SUMMARY | 2025-06-13 10:15 | XMS_ITS ---
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 Tito Gilbert III Primary Care Provider Allergies Allergen (clinical drug ingredient) Drug/Non Drug Allergy documented on EMR Reaction Allergy Type Onset Date Status ketamine Ketamine Unknown Drug Allergy Active Bee Sting Unknown Allergy Active sulfamethoxazole / trimethoprim Bactrim rash Drug Allergy Active REASON FOR VISIT edema left foot, Pain left foot, Back pain, Left rotator cuff tear, His PSA pancreas, Mesenteric fibrosis, Depression Medications Medication SIG (Take, Route, Frequency, Duration) Notes Start Date End Date Status LORazepam 1 MG one tablet Orally ev jennifer four hours for anxiety before MRI 02/12/2025 Active levoFLOXacin 500 MG 1 tablet Orally Once a day Active Suboxone 8-2 MG 8mg in the morning, 4mg in the afternoon, 8mg in the evening Sublingual Every 8 hours Active Sertraline HCl 50 MG 1 tablet Orally Once a day Active Cyclobenzaprine HCl 10 MG 1 tablet Orall y three times a day 04/12/2024 Active Ondansetron 4 MG 1 tablet on the tong ue and allow to dissolve Orally every 6 hours if needed for nausea Active Readi-Cat 2 2 % take 450 ml Orally o ne time Active EpiPen 2-Alvaro 0.3 MG/0.3ML as directed In jection USE DIRECTED Active fentaNYL 75 MCG/HR 1 patch to skin Transdermal every 72 hours 10/23/2023 Activ e Social History Tobacco Use: Social History Observation Description Date Details (start date - stop date) Never Smoker NA - NA Sex Assigned At : Social History Observation Description Sex Assigned At Male Tobacco Control (Standard) Question Answer Notes Tobacco use: Nonsmoker Additional Findings: Tobacco non-user Aggressive nonsmoker Problems Problem Type SNOMED Code ICD Code Onset Dates Problem Status W/U Status Risk Notes Problem Edema of left lower extremity (067367648) Edema of left lower extremity (R60.0) Active confirmed He will elevate his leg or use her compression hose. There is little suspicion of a blood clot. D-dimer is in the normal range. Vital Signs Temperature 97.4 degrees Fahrenheit 06/13/20 25 Blood pressure systolic 141 mm Hg 06/13/20 25 Blood pressure diastolic 72 mm Hg 025 Heart Rate 84 /min 06/13/2025 Height 68 in 06/13/2025 Weight 161 lbs 06/13/2025 BMI 24.48 kg/m2 06/13/2025 Encounters Encounter Location Date Provider Diagnosis Tito Gilbert III, MD [address] [place] [address] [place] [address] 06/13/2025 Tito Gilbert Edema of left lower extremity R60.0 ; Left rotator cuff tear arthropathy M12.812 ; Back pain, unspecified back location, unspecified back pain laterality, unspecified chronicity M54.9 ; Other and unspecified hyperlipidemia E78.5 ; Idiopathic acute pancreatitis without infection or necrosis K85.00 and Mesenteric fibrosis K66.8 Assessments Encounter Date Diagnosis (ICD Code) Assessment Notes Treat ment Notes Treatment Clinical Notes 06/13/2025 Edema of left lower extremity (ICD-10 - R60.0) He will elevate his leg or use her compression hose. There is little suspicion of a blood clot. D-dimer is in the normal range. 06/13/2025 Left rotator cuff tear arthropathy (ICD-10 - M12.812) There is been no change in his shoulder situation. He experiences pain in her shoulder with elevation above the horizon. He has been referred to orthopedics. 06/13/2025 Back pain, unspecified back location, unspecified back pain laterality, unspecified chronicity (ICD-10 - M54.9) His back pain has resolved and his main complaint is in his abdomen. He was continueed on Suboxone. 06/13/2025 Other and unspecifie d hyperlipidemia (ICD-10 - E78.5) Comprehensive blood work with a fasting lipid profile is being done periodically. No change in his medications was made today. 06/13/2025 Idiopathic acute pancreatitis without infection or necrosis (ICD-10 - K85.00) He has acute and chronic pancreatic pain. He is not interested in pancreatectomy. He will proceed to endoscopic celiac nerve block in April 2023 06/13/2025 Mesenteric fibrosis (ICD-10 - K66.8) He is now involved with a customer sales consultant at [facility]. I do not have a report from them at this time. He will continue on his current therapies and follow-up with a local photography editor. They have done a biopsy recently and we will request the pathology report. Plan Of Treatment Medication Medication Name Sig Start Date Stop Date Notes LORazepam 1 MG one tablet Orally ev jennifer four hours for anxiety before MRI 02/12/2025 levoFLOXacin 500 MG 1 tablet Orally Once a day 01/16/2025 Suboxone 8-2 MG 8mg in the morning, 4mg in the afternoon, 8mg in the evening Sublingual Every 8 hours Sertraline HCl 50 MG 1 tablet Orally Once a day 07/06/2024 Cyclobenzaprine HCl 10 MG 1 tablet Orall y three times a day 04/12/2024 Ondansetron 4 MG 1 tablet on the tong ue and allow to dissolve Orally every 6 hours if needed for nausea Readi-Cat 2 2 % take 450 ml Orally one time EpiPen 2-Alvaro 0.3 MG/0.3ML as directed In jection USE DIRECTED fentaNYL 75 MCG/HR 1 patch to skin Burden sdermal every 72 hours 10/23/2023 Pending Test Test Name Order Date PROFILE, RANDOM (COMPREHENSIVE METABOLIC ) 06/13/2025 CBC w DIFF 06/13/2025 SED RATE (ESR) 06/13/2025 D Dimer 06/13/2025 Next Appt Details Follow Up: As Scheduled, Pushpa son: OV Provider Name:Tito Gilbert , 08/25/2025 10:00:00 AM, [address] [place] [address] [address], [place], [address], Provider Name:Tito Gilbert , 01/01/2026 11:00:00 AM, [address] [place] [address] [address], [place], [address], Progress Notes * Aneudy CANCINO KDOB:[birth year] (65 yo M)Acc No.[id number]:06/13/2025 Progress Notes Patient: Aneudy DAWSON Provider: Elias Gilbert MD :1960 A ge:65 Y S ex:Male Date:06/13/2025 Address:[address] [place] [address] [address], [facility], [id number] Subjective: * Chief Complaints: * E candi left footPain left footBack painLeft rotator cuff tearHis PSA pancreasMesenteric fibrosisDepression * HPI: C OVID-19 Screening: He comes to the office today with a 48 hour history of mild pain in the dorsum of left foot and gastroc muscle trace edema of the dorsum of the left foot. On physical examination there was trace pitting edema on top of the foot. The Achilles tendon was unremarkable the knee had normal range of motion. He reported some tenderness to compression of the gastrocnemius muscle. Comprehensive blood work was done and a d-dimer was in the normal range. There was no suspicion of a blood clot. He will be observed. Questions H ave you had any new onset fever, chills, cough, congestion, sore throat, shortness of breath, muscle aches? N o * ROS: G eneral/Constitutional: pain L eft for, lower abdomen. C hills d enies.?Fatigue a dmits. F ever d enies. E NT: Decreased hearing d enies. R espiratory: Cough d enies. C ardiovascular: Chest pain with exertion d enies. D yspnea on exertion?denies. S hortness of breath d enies. G astrointestinal: Constipation o ccasional. D ecreased appetite d enies. D iarrhea d enies. H eartburn d enies. N ausea d enies. R ectal bleeding d enies. V omiting d enies. H ematology: bruising d enies. p etechiae d enies. S wollen glands n one have been noted. G enitourinary: Frequent urination d enies. M usculoskeletal: Muscle aches d enies. P ainful joints d enies. S ciatica d enies. W eakness d enies. S kin: Itching d enies. R deb d enies. S kin lesion(s)?denies. N eurologic: Difficulty speaking d enies. D izziness d enies.?Headache d enies. L ow back pain d enies. P sychiatric: Depressed mood w hich is mild. * Medical History: * Surgical History: l eft orchiectomy 1980radical lymph node dissection 1980right rotator cuff surgery Dr. Garcia 07/2014EGD w/ Bx and EUS Celiac Plexus Block 3Bx of the abdomen- [facility] 04/28/2025 * Hospitalization/Major Diagno stic Procedure: P ancreatitis 01/2021No history * Family History: F ather: alive 80 yrs, CABAG, angioplasty,spinal stenosis, hypertension, hyperlipidemia, anxiety, diagnosed with Hyperlipidemia, HTN. M other: alive 75 yrs, DJD, hypertension, diagnosed with HTN. 1 brother(s) , 3 sister(s) - healthy. . He has no children. * Social History: T obacco Use: T obacco Control (Standard) T obacco use: N onsmoker A dditional Findings: Tobacco non-user A ggressive nonsmoker Spring rea was born in [place], [place]. * Medications: T akingOndansetron 4 MG Tablet Disintegrating 1 tablet on the tongue and allow to dissolve Orally every 6 hours if needed for nausea EpiPen 2-Alvaro 0.3 MG/0.3ML Solution Auto-injector as directed Injection USE DIRECTED Readi-Cat 2 2 % Suspension take 450 ml Orally one time fentaNYL 75 MCG/HR Patch 72 Hour 1 patch to skin Transdermal every 72 hours Suboxone 8-2 MG Film 8mg in the morning, 4mg in the afternoon, 8mg in the evening Sublingual Every 8 hours Cyclobenzaprine HCl 10 MG Tablet 1 tablet Orally three times a day Sertraline HCl 50 MG Tablet 1 tablet Orally Once a day levoFLOXacin 500 MG Tablet 1 tablet Orally Once a day LORazepam 1 MG Tablet one tablet Orally every four hours for anxiety before MRI Taking Ondansetron 4 MG Tablet Disintegrating 1 tablet on the tongue and allow to dissolve Orally every 6 hours if needed for nausea Taking EpiPen 2-Alvaro 0.3 MG/0.3ML Solution Auto-injector as directed Injection USE DIRECTED Taking Readi-Cat 2 2 % Suspension take 450 ml Orally one time Taking fentaNYL 75 MCG/HR Patch 72 Hour 1 patch to skin Transdermal every 72 hours Taking Suboxone 8-2 MG Film 8mg in the morning, 4mg in the afternoon, 8mg in the evening Sublingual Every 8 hours Taking Cyclobenzaprine HCl 10 MG Tablet 1 tablet Orally three times a day Taking Sertraline HCl 50 MG Tablet 1 tablet Orally Once a day Taking levoFLOXacin 500 MG Tablet 1 tablet Orally Once a day Taking LORazepam 1 MG Tablet one tablet Orally every four hours for anxiety before MRI DiscontinuedSertraline HCl 25 MG Tablet TAKE 1 TABLET BY MOUTH EVERY DAY Medication List reviewed and reconciled with the patientDiscontinued Sertraline HCl 25 MG Tablet TAKE 1 TABLET BY MOUTH EVERY DAY Medication List reviewed and reconciled with the patient * Allergies: B actrim: rash - AllergyBee StingKetamineno[Allergies Verified] Objective: * Vitals: H t: 68, Wt:161, BMI:24.48, BP:141/72, HR:84, Temp:97.4, Ht-cm: 172.72, Wt-k.03. * P ast Orders: L ab:Complete Blood Count Auto Diff (Order Date - 06/13/2025) (Collection Date & Time - 06/13/2025 03:05 PM) Value Reference Range White Blood Count 4.1 L 4.8-10.8 - X10*3/uL Red Blood Count 3.78 L 4.60-5.80 - X10*6/uL Hemoglobin 11.5 L 14.0-18.0 - g/dl Hematocrit 34.5 L 42.0-52.0 - % Mean Corpuscular Volume 91.3 80.0-98.0 - fL Mean Corpuscular Hemoglobin 30.4 27.0-33.0 - pg Mean Corpuscular HGB Conc 33.3 31.0-36.0 - g/ dl Red Cell Distribution Width 12.5 11.0-16.0 - % Platelet Count 208 160-400 - X10*3/uL Mean Platelet Volume 9.7 9.4-12.4 - fL Neutrophils Percent Auto 60.8 45-73 - % Imm Gran Pct Auto 0.2 0.0-0.4 - % Lymphocytes Percent Auto 27.1 20-40 - % Monocytes Percent Auto 8.7 2-11 - % Eosinophils Percent Auto 2.7 0-4 - % Basophils Percent Auto 0.5 0-2 - % NRBC Pct Auto 0.0 0.0-0.2 - /100WBC Neutrophils Absolute Auto 2.5 2.0-8.3 - x10* 3/uL Imm Gran Abs Auto 0.01 0.00-0.03 - X10*3/uL Lymphocytes Absolute Auto 1.1 L 1.2-4.9 - X10* 3/uL Monocytes Absolute Auto 0.4 0.1-1.2 - X10*3/ uL Eosinophils Absolute Auto 0.1 0.0-0.4 - X10* 3/uL Basophils Absolute Auto 0.0 0.0-0.2 - X10*3/ uL NRBC Abs Auto 0.000 0.0-0.012 - X10*3/uL L ab:Erythrocyte Sedimentation Rate (Order Date - 06/13/2025) (Collection Date & Time - 06/13/2025 03:05 PM) Value Reference Range Erythrocyte Sedimentation Rate 14 0-15 - MM /HR L ab:Comprehensive Met. Panel (Order Date - 06/13/2025) (Collection Date & Time - 06/13/2025 03:05 PM) Value Reference Range Sodium 140 135-145 - mmol/L Bilirubin Total 0.3 0.0-1.0 - mg/dL Aspartate Amino Transferase 25 5-37 - U/L Alanine Aminotransferase 17 0-40 - U/L Total Protein 7.1 6.5-8.0 - g/dL Albumin Level 4.2 3.5-5.0 - g/dL Alkaline Phosphatase 56 39-117 - U/L Potassium 4.8 3.3-5.1 - mmol/L Chloride 103 96-108 - mmol/L Carbon Dioxide 34 H 22-29 - mmol/L Anion Gap 8 L 12-20 - Blood Urea Nitrogen 21 H 9-16 - mg/dL Creatinine 0.85 0.5-1.4 - mg/dL Estimated Glomerular Filt Rate > 60 - Glucose Random 92 60-115 - mg/dL Calcium 9.0 8.4-10.2 - mg/dL L ab:D Dimer High Sensitivity (Order Date - 06/13/2025) (Collection Date & Time - 06/13/2025 03:05 PM) Value Reference Range D Dimer High Sensitivity 220 - NG/ML * Examination: G eneral Examination: GENERAL APPEARANCE: p leasant, well nourished, well developed, in no acute distress, calm and relaxed, man. HEAD: a traumatic, normocephalic. EYES: e taty, perrla, anicteric, conjugate. EARS: n ormal. NOSE: s eptum intact. ORAL CAVITY: n ormal, unremarkable. NECK/THYROID: n o jugular venous distention, no carotid bruit, thyroid normal. LYMPH NODES: n o enlarged lymph nodes,spleen normal. SKIN: n o suspicious lesions, anicteric. HEART: n o clicks, gallops, murmurs, or rubs, regular rhythm, S1, S2 normal, no s3, or vascular bruits. LUNGS: c lear to auscultation . BREASTS: no masses palpable bilaterally. ABDOMEN: b owel sounds normal, no ascites, no organomegaly, no mass, Tenderness to palpation around and below the umbilicus. RECTAL EXAM: n ot examined. MUSCULOSKELETAL: e xtremities unremarkable, no clubbing, cyanosis. trace edema of the left foot, right foot nonaffected. PERIPHERAL PULSES: n ormal. NEUROLOGIC: a lert and oriented, cranial nerves 2-12 grossly intact, deep tendon reflexes 2+ symmetrical, motor strength normal upper and lower extremities, sensory exam intact. PSYCH: a lert, oriented. Assessment: * Assessment: 1. L eft rotator cuff tear arthropathy - M12.812 (Primary) N otes :There is been no change in his shoulder situation. He experiences pain in her shoulder with elevation above the horizon. He has been referred to orthopedics. 2 . E candi of left lower extremity - R60.0 N otes :He will elevate his leg or use her compression hose. There is little suspicion of a blood clot. D-dimer is in the normal range. 3 . B ack pain, unspecified back location, unspecified back pain laterality, unspecified chronicity - M54.9 N otes :His back pain has resolved and his main complaint is in his abdomen. He was continueed on Suboxone. 4 . O ther and unspecified hyperlipidemia - E78.5 N otes :Comprehensive blood work with a fasting lipid profile is being done periodically. No change in his medications was made today. 5 . I diopathic acute pancreatitis without infection or necrosis - K85.00 N otes :He has acute and chronic pancreatic pain. He is not interested in pancreatectomy. He will proceed to endoscopic celiac nerve block in April 2023 6 . M esenteric fibrosis - K66.8 N otes :He is now involved with a customer sales consultant at [facility]. I do not have a report from them at this time. He will continue on his current therapies and follow-up with a local photography editor.They have done a biopsy recently and we will request the pathology report. Plan: * Treatment: 2. O ther and unspecified hyperlipidemia L AB: PROFILE, RANDOM (COMPREHENSIVE METABOLIC) L AB: CBC w DIFF L AB: SED RATE (ESR) L AB: D Dimer 3. O thers Continue Ondansetron Tablet Disintegrating, 4 MG, 1 tablet on the tongue and allow to dissolve, Orally, every 6 hours if needed for nausea; C ontinue EpiPen 2-Alvaro Solution Auto-injector, 0.3 MG/0.3ML, as directed, Injection, USE DIRECTED; C ontinue Readi-Cat 2 Suspension, 2 %, take 450 ml, Orally, one time; C ontinue fentaNYL Patch 72 Hour, 75 MCG/HR, 1 patch to skin, Transdermal, every 72 hours; C ontinue Suboxone Film, 8-2 MG, 8mg in the morning, 4mg in the afternoon, 8mg in the evening, Sublingual, Every 8 hours; C ontinue Cyclobenzaprine HCl Tablet, 10 MG, 1 tablet, Orally, three times a day; C ontinue Sertraline HCl Tablet, 50 MG, 1 tablet, Orally, Once a day; C ontinue levoFLOXacin Tablet, 500 MG, 1 tablet, Orally, Once a day; C ontinue LORazepam Tablet, 1 MG, one tablet, Orally, every four hours for anxiety before MRI. * Procedure Codes: * Follow Up: A s Scheduled (Reason: OV) * Images: * Sign off status: Completed true * Provider: Elias Gilbert MD Date: 06/13/2025 Generated for Natalia hitchcock/Harpreet/Eldon on: 08/20/2025 05:25 PM EDT History and Physical Notes * HPI (History of Present Illness) Category Sub-Category Detail Notes COVID-19 Screening Questions Have you had any new onset fever, chills, cough, congestion, sore throat, shortness of breath, muscle aches?: No Examination Category Sub-Category Detail Notes General Examination GENERAL APPEARANCE: pleasant , well nourished, well developed, in no acute distress, calm and relaxed, man HEAD: atraumatic, normocep halic EYES: eomi, perrla, anicte dai, conjugate EARS: normal NOSE: septum intact NECK/THYROID: no jugular venous di stention, no carotid bruit, thyroid normal HEART: no clicks, gallops, murmurs, or rubs, regular rhythm, S1, S2 normal, no s3, or vascular bruits LUNGS: clear to auscultatio n ABDOMEN: bowel sounds normal, no ascites, no organomegaly, no mass, Tenderness to palpation around and below the umbilicus NEUROLOGIC: alert and oriented, cranial nerves 2-12 grossly intact, deep tendon reflexes 2+ symmetrical, motor strength normal upper and lower extremities, sensory exam intact SKIN: no suspicious lesion s, anicteric PERIPHERAL PULSES: normal BREASTS: no masses palpable b ilaterally MUSCULOSKELETAL: extremities unremark able, no clubbing, cyanosis. trace edema of the left foot, right foot nonaffected LYMPH NODES: no enlarged lymph no meka,spleen normal RECTAL EXAM: not examined PSYCH: alert, oriented ORAL CAVITY: normal, unremarkable
--- OUTSIDE RECORDS SUMMARY | 2025-06-26 06:47 | XMS_ITS ---
Author Organization Tito Gilbert III, MD Address [address] [place] [address] [place] [address] Care Team Providers Care Medical Billing Clerk Name Role Phone Dr. Tito Gilbert III Primary Care Provider [phone] REASON FOR VISIT Rx Refill Medications Medication SIG (Take, Route, Frequency, Duration) Notes Start Date End Date Status EpiPen 2-Alvaro 0.3 MG/0.3ML use to take af ter bee sting Injection use after bee sting for 30 days Active Social History Sex Assigned At : Social History Observation Description Sex Assigned At Male Encounters Encounter Location Date Provider Diagnosis Tito Gilbert III, MD [address] [place] [address] [place] [address] 06/26/2025 Tito Gilbert Plan Of Treatment Medication Medication Name Sig Start Date Stop Date Notes EpiPen 2-Alvaro 0.3 MG/0.3ML use to take af ter bee sting Injection use after bee sting for 30 days Next Appt Details Provider Name:Tito Gilbert , 08/25/2025 10:00:00 AM, [address] [facility] [address], [place], [address], Provider Name:Tito Gilbert , 01/01/2026 11:00:00 AM, [address] [place] [address] [address], [place], [address], Progress Notes * Aneudy CANCINO KDOB:[birth year] (65 yo M)Acc No.[id number]:06/26/2025 Patient: Clau BURGER Aneudy Yessenia :1960 A ge:65 Y S ex:Male Address:[address], [place] [address] * Refills Refill EpiPen 2-Alvaro Solution Auto-injector, 0.3 MG/0.3ML, Injection, 2 Pack, use to take after bee sting, use after bee sting, 30 days, Refills=11 * true * Date: Generated for Natalia hitchcock/Harpreet/eTvitorsmitting on: 0 08/20/2025 05:24 PM EDT
--- OUTSIDE RECORDS SUMMARY | 2025-07-14 07:15 | XMS_ITS ---
Author Organization Tito Gilbert III, MD Address [address] [place] [address] [place] [address] Care Team Providers Care Log Sorting Supervisor Name Role Phone Dr. Tito Gilbert III Primary Care Provider [phone] Allergies Allergen (clinical drug ingredient) Drug/Non Drug Allergy documented on EMR Reaction Allergy Type Onset Date Status ketamine Ketamine Unknown Drug Allergy Active Bee Sting Unknown Allergy Active sulfamethoxazole / trimethoprim Bactrim rash Drug Allergy Active REASON FOR VISIT Swollen left leg, Mesenteric fibrosis, Left rotator cuff pain, Chronic pancreatitis Medications Medication SIG (Take, Route, Frequency, Duration) Notes Start Date End Date Status LORazepam 1 MG one tablet Orally ev jennifer four hours for anxiety before MRI 02/12/2025 Active EpiPen 2-Alvaro 0.3 MG/0.3ML use to take af ter bee sting Injection use after bee sting Active levoFLOXacin 500 MG 1 tablet Orally Once a day Active Cyclobenzaprine HCl 10 MG 1 tablet Orall y three times a day 04/12/2024 Active Sertraline HCl 50 MG 1 tablet Orally Once a day Active fentaNYL 75 MCG/HR 1 patch to [...] 450 ml Orally o ne time Active Social History Tobacco Use: Social History Observation Description Date Details (start date - stop date) Never Smoker NA - NA Sex Assigned At : Social History Observation Description Sex Assigned At Male Tobacco Control (Standard) Question Answer Notes Tobacco use: Nonsmoker Additional Findings: Tobacco non-user Aggressive nonsmoker Vital Signs Temperature 97.9 degrees Fahrenheit 07/14/20 25 Blood pressure systolic 153 mm Hg 07/14/20 25 Blood pressure diastolic 79 mm Hg 025 Heart Rate 77 /min 07/14/2025 Height 68 in 07/14/2025 Weight 159 lbs 07/14/2025 BMI 24.17 kg/m2 07/14/2025 Encounters Encounter Location Date Provider Diagnosis Tito Gilbert III, MD [address] [place] [address] [place] [address] 07/14/2025 Tito Gilbert Mesenteric fibrosis K66.8 ; Idiopathic chronic pancreatitis K86.1 ; Left inguinal pain R10.32 ; Acute pain of right shoulder M25.511 ; Edema of left lower extremity R60.0 ; Other and unspecified hyperlipidemia E78.5 and Testicular cancer C62.90 Assessments Encounter Date Diagnosis (ICD Code) Assessment Notes T reatment Notes Treatment Clinical Notes 07/14/2025 Mesenteric fibrosis (ICD-10 - K66.8) A biopsy initiated by gastroenterology at [facility] showed lymphocytic infiltrate. A lymphoma specialist, Dr. Barroso, ssuspect and non-Hodgkin's lymphoma.The plan. There is to see a surgeon to do an open biopsy of the mesentery to obtain enough tissue to characterize a lymphoid infiltrate. There are no plans at this moment to do a bone marrow biopsy. 07/14/2025 Idiopathic chronic pancreatitis (ICD-10 - K86.1) He has chronic and frequent episodes of pancreatitis which have been treated with narcotic analgesics. 07/14/2025 Left inguinal pain (ICD-10 - R10.32) Urologist believes this is from a nerve impingement. I will have a neurologist consult to see if we can pinpoint the source of the pain. Meanwhile, I have ordered another MRI of the thoracolumbar spine to compare with the one done last 07/14/2025 Acute pain of right shoulder (ICD-10 - M25.511) The discomfort in his shoulder is due to nerve impingement in his neck. The shoulder joint appears to be intact. 07/14/2025 Edema of left lower extremity (ICD-10 - R60.0) He will elevate his leg or use her compression hose. There is little suspicion of a blood clot. D-dimer is in the normal range. 07/14/2025 Other and unspecified hyperlipidemia (ICD-10 - E78.5) Comprehensive blood work with a fasting lipid profile is being done periodically. No change in his medications was made today. 07/14/2025 Testicular cancer (ICD-10 - C62.90) He was treated in the past with surgery and chemotherapy. No sign of recurrent disease at this time. Plan Of Treatment Medication Medication Name Sig Start Date Stop Date Notes LORazepam 1 MG one tablet Orally ev jennifer four hours for anxiety before MRI 02/12/2025 EpiPen 2-Alvaro 0.3 MG/0.3ML use to take af ter bee sting Injection use after bee sting levoFLOXacin 500 MG 1 tablet Orally Once a day 01/16/2025 Cyclobenzaprine HCl 10 MG 1 tablet Orall y three times a day 04/12/2024 Sertraline HCl 50 MG 1 tablet Orally Once a day 07/06/2024 fentaNYL 75 MCG/HR 1 patch to skin Burden sdermal every 72 hours 10/23/2023 Suboxone 8-2 MG 8mg in the morning, 4mg in the afternoon, 8mg in the evening Sublingual Every 8 hours Ondansetron 4 MG 1 tablet on the tong ue and allow to dissolve Orally every 6 hours if needed for nausea Readi-Cat 2 2 % take 450 ml Orally one time Next Appt Details Follow Up: 6 Weeks, Reason: OV Provider Name:Tito Gilbert , 08/25/2025 10:00:00 AM, [address] [place] [address] [address], [place], [address], Provider Name:Tito Dooley Vladimir , 01/01/2026 11:00:00 AM, [address] [facility] [address], [place], [address], Progress Notes * Aneudy CANCINO KDOB:[birth year] (65 yo M)Acc No.[id number]:07/14/2025 Patient: Aneudy DAWSON Provider: Elias Gilbert MD :1960 A ge:65 Y S ex:Male Date:07/14/2025 Address:[address], [facility], [id number] Subjective: * Chief Complaints: * S wollen left legMesenteric fibrosisLeft rotator cuff painChronic pancreatitis * HPI: C OVID-19 Screening: A new problem is swelling and pain in the left leg below the knee. He was stung by several yellow jacket wants that came from a whole in his lawn well. He was cutting the grass. This occurred several days ago and it is improving. He uses EpiPen but did not require hospitalization. He continues to have epigastric pain. He has seen Dr. Nubia Ravi, lymphoma specialist, at [facility] who thinks he may have a lymphoma in the mesentery.? She has recommended an excisional biopsy to obtain enough tissue to do genetic testing flow cytometry and light microscopy. He has agreed to do so and is going to be scheduled. She gave him the name of a surgeon. Questions H ave you had any new onset fever, chills, cough, congestion, sore throat, shortness of breath, muscle aches? N o * ROS: G eneral/Constitutional: pain L eft leg and upper abdomen. C hills d enies.?Fatigue a dmits. F ever d enies. E NT: Decreased hearing d enies. R espiratory: Cough d enies. C ardiovascular: Chest pain with exertion d enies. D yspnea on exertion?denies. S hortness of breath d enies. G astrointestinal: Constipation o ccasional. D ecreased appetite d enies. D iarrhea t hat is infrequent. H eartburn d enies. N ausea d enies. R ectal bleeding d enies. V omiting d enies. H ematology: bruising d enies. p etechiae d enies. S wollen glands n one have been noted. G enitourinary: Frequent urination o nce a night. M usculoskeletal: Muscle aches d enies. P [...] History: * Surgical History: l eft [facility] 1981[facility]. Garcia 07/2014EGD w/ Bx and EUS Celiac Plexus Block 05/08/2023x of the abdomen- [facility] 04/28/2025 * Hospitalization/Major [...] dditional Findings: Tobacco non-user A ggressive nonsmoker H e was born in [place], [place]. * Medications: T akingOndansetron 4 MG Tablet Disintegrating 1 tablet on the tongue and allow to dissolve Orally every 6 hours if needed for nausea Readi-Cat 2 2 % Suspension take 450 [...] every four hours for anxiety before MRI EpiPen 2-Alvaro 0.3 MG/0.3ML Solution Auto-injector use to take after bee sting Injection use after bee sting Medication List reviewed and reconciled with the patientTaking Ondansetron 4 MG Tablet Disintegrating 1 tablet on the tongue and allow to dissolve Orally every 6 hours if needed for nausea Taking Readi-Cat 2 2 % Suspension take [...] four hours for anxiety before MRI Taking EpiPen 2-Alvaro 0.3 MG/0.3ML Solution Auto-injector use to take after bee sting Injection use after bee sting Medication List reviewed and reconciled with the patient * Allergies: B actrim: rash - AllergyBee StingKetamineno[Allergies Verified] Objective: * Vitals: H t: 68, Wt:159, BMI:24.17, BP:153/79, HR:77, Temp:97.9, Ht-cm: 172.72, Wt-k.12. * Examination: G eneral Examination: GENERAL APPEARANCE: p leasant, well nourished, well developed, in no acute distress, Depressed appearing man. HEAD: a traumatic, normocephalic. EYES: e [...] ascites, no organomegaly, no mass, Tenderness to at a castrated palpation: no rebound tenderness: no masses palpable. RECTAL EXAM: n ot examined. MUSCULOSKELETAL: e xtremities unremarkable, no clubbing, cyanosis or edema. PERIPHERAL PULSES: n ormal. NEUROLOGIC: a lert and oriented, cranial nerves 2-12 grossly intact, deep tendon reflexes 2+ symmetrical, motor strength normal upper and lower extremities, sensory exam intact. PSYCH: a lert, oriented. Assessment: * Assessment: 1. M esenteric fibrosis - K66.8 (Primary) N otes :A biopsy initiated by gastroenterology at [facility] showed lymphocytic infiltrate. A lymphoma specialist, Dr. Barroso, ssuspect and non-Hodgkin's lymphoma.The plan. There is to see a surgeon to do an open biopsy of the mesentery to obtain enough tissue to characterize a lymphoid infiltrate. There are no plans at this moment to do a bone marrow biopsy. 2 . I diopathic chronic pancreatitis - K86.1 N otes :He has chronic and frequent episodes of pancreatitis which have been treated with narcotic analgesics. 3 . L eft inguinal pain - R10.32 N otes :Urologist believes this is from a nerve impingement. I will have a neurologist consult to see if we can pinpoint the source of the pain. Meanwhile, I have ordered another MRI of the thoracolumbar spine to compare with the one done last July 4 . A cute pain of right shoulder - M25.511 N otes :The discomfort in his shoulder is due to nerve impingement in his neck. The shoulder joint appears to be intact. 5 . E candi of left lower extremity - R60.0 N otes :He will elevate his leg or use her compression hose. There is little suspicion of a blood clot. D-dimer is in the normal range. 6 . O ther and unspecified hyperlipidemia - E78.5 N otes :Comprehensive blood work with a fasting lipid profile is being done periodically. No change in his medications was made today. 7 . T esticular cancer - C62.90 N otes :He was treated in the past with surgery and chemotherapy. No sign of recurrent disease at this time. Plan: * Treatment: * Procedure Codes: * Follow Up: 6 Weeks (Reason: OV) * Images: * Sign off status: Completed true * Provider: Elias Gilbert MD Date: 0 07/14/2025 Generated for Printi ng/Faxing/eTransmitting on: 0 08/20/2025 05:24 PM EDT History and Physical Notes * [...] ascites, no organomegaly, no mass, Tenderness to at a castrated palpation: no rebound tenderness: no masses palpable NEUROLOGIC: alert and oriented, cranial nerves 2-12 [...]
[2025-08-20 14:55] VITALS: PULSE 80; O2SAT 99; BMI 26.1
--- NOTE | 2025-08-20 14:55 | MHC.OFFVIS ---
Vital Signs 08/20/25 14:55 Height 5 ft 8 in Weight 172 lb BMI 26.1 Pulse 80 Pulse Source Pulse Oximeter Pulse Oximetry (%) 99 Oxygen Delivery Method Room Air Intake Visit Reasons: MAT Allergies bee stings Allergy (Unknown, Uncoded 08/20/25 14:56) Anaphylaxis sulfa Allergy (Unknown, Uncoded 08/20/25 14:56) serum sickness HPI Comments Details: History of Present Illness The patient is a 65-year-old male presenting with opioid use disorder. He is managing this condition with a stable dosage of Suboxone 8/2 mg BID, experiencing good therapeutic response without significant side effects. He describes the current dose as suitable and reports no changes or additional complaints regarding his opioid use disorder. 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 He reports an uncomplicated history with this diagnosis and no recent changes in symptoms or treatment strategy. The patient is open to engaging a therapist for depression management if deemed necessary in the future, although he has not found this need currently pressing. Review of Systems - General: Reports feeling well. - Gastrointestinal: Denies constipation. - Psychiatric: Reports feeling well; will engage in therapy for depression if needed. Physical Exam - General- Vitals are stable. Results Plan Patient was informed and verbally consented to the use of an ambient scribe for clinic note documentation during this visit. 1. Opioid use, unspecified, uncomplicated F11.90 The patient is maintained on Suboxone 8/2 mg BID, experiencing appropriate therapeutic effects. No adverse side effects are reported, and the medication is deemed effective in managing his disorder. We provided a prescription for a one-month supply with two refills. Regular follow-ups are advised to ensure ongoing treatment effectiveness and manage any changes if needed. 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 Continued observation and assessment will occur at [facility]. The patient is advised to stay vigilant for any symptoms or changes that may require adjustment of his treatment plan. Discussion Notes I discussed with the patient that he is currently stable on his Suboxone regimen for opioid use disorder, with the dosage being appropriate. Instructions were provided to continue the same dosing, and additional prescriptions were issued. Regarding his indolent lymphoma, I noted ongoing evaluation at [facility] and emphasized the importance of reporting any new symptoms or changes. The patient consented to using ambient technology for supporting ongoing care and is aware of the discussed follow-up plans. Medical Decision Making The patient presents with stable opioid use disorder, effectively managed with Suboxone. Continued treatment with this therapeutic regimen is deemed appropriate based on current effectiveness and lack of significant side effects. I have emphasized the importance of regular follow-up to evaluate efficacy and safety continually. Additionally, the patient is managing an indolent lymphoma diagnosis ; therefore, biopdy management continues under specialized care. My goals are to maintain current stability, prioritize patient comfort, and address any future complications promptly. Patient Instructions - Continue taking Suboxone as prescribed. - Report any new symptoms or side effects. - Engage in therapy if feeling symptoms of depression. - Attend all scheduled follow-up appointments. - Alert healthcare professionals to any changes in symptoms or new issues. 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 Physical Exam Vital Signs: Last Vital Signs Pulse 80 08/20/25 14:55 Pulse Ox 99 08/20/25 14:55 Oxygen Delivery Method Room Air 08/20/25 14:55 BMI result Body Mass Index 26.1 Assessment & Plan Assessment & Plan (1) Opioid dependence: Code(s): F11.20 - Opioid dependence, uncomplicated Category: Medical Qualifiers: Substance use status: uncomplicated Qualified Code(s): F11.20 - Opioid dependence, uncomplicated Plan: na Plan na Medications: New buprenorphine-naloxone 8-2 mg (Suboxone) 3 film sublingual DAILY 90 ea 2RF 30 days Coding Level of Care Code Est Pt Level 3 (96613) Diagnoses Uncomplicated opioid dependence F11.20 Substance use status: uncomplicated
--- OUTSIDE RECORDS SUMMARY | 2025-08-20 17:24 | XMS_ITS | Clinical Summary ---
Author Organization [facility] Address [address] [place] [address] Care Team Providers Care Passenger Train Braker Name Role Phone Gilbert, Tito Primary Care Provider [phone] Allergies Active Allergy Reactions Criticality Noted Date [...] Colonoscopy 1958 FOBT / Fit Test 1958 Sigmoidoscopy 1958 DTaP,Tdap,and Td Vaccines (1 - Tdap) 1980 Pneumococcal Vaccine: 50+ Years (1 of 1 - PCV) 2008 Alcohol/Substance Use Screening 11/27/2024 Depression Screening and Follow-Up 11/27/2024 Fall Risk Screening 11/27/2024 Health Care Proxy Review 11/27/2024 Social Drivers of Health Annual Screening 11/27/2024 COVID-19 Vaccine ( season) 2025 11/02/2021, 04/17/2021, 03/27/2021, Additional history exists Influenza Vaccine (#1) 2025 , 08/04/2020, 08/24/2018, Additional history exists RSV Vaccine (60+ years old and patients) (1 - 1-dose 75+ series) 2033 Zoster Vaccines Completed 06/01/2021, 12/17/2020 Hepatitis B Vaccines Aged Out No long er eligible based on patient's age to complete this topic Insurance MEDICARE [facility] Care Teams Passenger Train Braker Relationship Specialty Start Date End Date Tito Gilbert: [id number] [address] PCP - General Hematology 07/21/22
--- OUTSIDE RECORDS SUMMARY | 2025-08-20 17:25 | XMS_ITS | Encounter Summary ---
Author Organization [facility] Address [address] [place] [address] Care Team Providers Care Chalk Tester Name Role Phone Tito Gilbert MD Primary Care Provider [phone] Encounter Details Date Type Department Care Team (Late st Contact Info) Description 07/08/2024 Scanned Document [facility] Neurology Sports [address] [address] Therese Bright MD [address] [place] [id number] Social History Tobacco Use Types Packs/Day Years [...] on filedocumented in this encounter Care Teams Chalk Tester Relationship Specialty Start Date End Date Tito Gilbert MD [address] [address] PCP - General 02/07/22 documented as of this encounter
--- OUTSIDE RECORDS SUMMARY | 2025-08-20 17:25 | XMS_ITS | Clinical Summary ---
Author Organization [address] Address [address] [place] [phone] Phone Care Team Providers Care Mechanical Supervisor Name Role Phone Tito Gilbert MD Primary Care Provider [phone] Social History Tobacco Use Types Packs/Day Years [...] Shingrix (RZV) 2 Dose Standard Series) 2008 Influenza vaccine 06/27/2025 Covid-19 vaccine series ( - season) 2025 RSV Immunization (1 - 1-dose 75+ series) 2033 Meningococcal B Vaccine Aged Out No l onger eligible based on patient's age to complete this topic Meningococcal Vaccine Aged Out No noe deanna eligible based on patient's age to complete this topic Insurance MEDICARE COMMERCIAL GENERIC MEDICARE COMMERCIAL GENERIC MEDICARE COMMERCIAL GENERIC Care Teams Mechanical Supervisor Relationship Specialty Start Date End Date Tito Gilbert MD [address] [place] [address] [place] [address] PCP - General Medical Oncology 05/03/24
--- OUTSIDE RECORDS SUMMARY | 2025-08-20 17:26 | XMS_ITS | Encounter Summary ---
Author Organization [facility] Address [address] [place] [address] Care Team Providers Care Street Roller Engineer Name Role Phone Tito Gilbert MD Primary Care Provider [phone] Encounter Details Date Type Department Care Team (Late st Contact Info) Description 07/08/2024 Scanned Document [facility] Neurology Sports [address] [address] Therese Bright MD [address] [place] [phone] Social History Tobacco Use Types Packs/Day Years [...] on filedocumented in this encounter Care Teams Street Roller Engineer Relationship Specialty Start Date End Date Tito Gilbert MD [address] [address] PCP - General 02/07/22 documented as of this encounter
--- OUTSIDE RECORDS SUMMARY | 2025-08-20 17:26 | XMS_ITS | Encounter Summary ---
Author Organization [facility] Address [address] [place] [address] Care Team Providers Care Telephone Order Clerk Room Service Name Role Phone Tito Gilbert MD Primary Care Provider [phone] Encounter Details Date Type Department Care Team (Late st Contact Info) Description 04/27/2022 Scanned Document [facility] Neurosurgery [place] [address] [phone] Social History Tobacco Use Types Packs/Day Years [...] on filedocumented in this encounter Care Teams Telephone Order Clerk Room Service Relationship Specialty Start Date End Date Tito Gilbert MD 1221 [facility] [address] [place] [address] PCP - General 02/07/22 documented as of this encounter
--- OUTSIDE RECORDS SUMMARY | 2025-08-20 17:26 | XMS_ITS | Encounter Summary ---
Author Organization [facility] Address [address] [place] [address] Care Team Providers Care Instructor Watch Assembly Name Role Phone Tito Gilbert MD Primary Care Provider [phone] Encounter Details Date Type Department Care Team (Late st Contact Info) Description 06/13/[address] [facility] Neurology Sports [place] [address] [address] Tyshawn Briones, PA-C [address] [address] Social History Tobacco Use Types Packs/Day Years [...] on filedocumented in this encounter Care Teams Instructor Watch Assembly Relationship Specialty Start Date End Date Tito Gilbert MD 1221 [facility] [address] [place] [address] PCP - General 02/07/22 documented as of this encounter
--- OUTSIDE RECORDS SUMMARY | 2025-08-20 17:26 | XMS_ITS | Clinical Summary ---
Author Organization [facility] Address [address] [place] [address] Care Team Providers Care Senior J2Ee Developer Name Role Phone Tito Gilbert MD Primary Care Provider [phone] Allergies Active Allergy Reactions Criticality Noted Date Comments Bee Venom Anaphylaxis High 08/09/2022 Sulfamethoxazole-Trimethoprim Rash/Dermatitis Low 0 07/24/2022 Medications Suboxone 8-2 MG per SL film 2 times a day. 4 Active ondansetron (ZOFRAN-ODT) 4 MG disintegrating tablet 1 tablet on the tongue and allow to dissolve Orally every 6 hours as needed for nausea 4 Active diazepam (VALIUM) 5 MG tabletIndications: Claustrophobia Take 1 tab 30 mins before MRI and have the 2nd tab available to take if needed in the MRI. Do not drive. 2 tablet 4 Active sertraline (ZOLOFT) 25 MG tablet Take 1 tablet (25 mg total) by mouth. 5 Active Active Problems Problem Noted Date Diagnosed [...] Encounters Date Type Department Care Team Description 06/13/2025 Scanned Document [facility] Neurology [address] [place] [address] Tyshawn Briones PA-C 06/06/2025 2:30 PM EDT Telemedicine [facility] Neurology [address] [place] [address] Tyshawn Briones PA-C Cognitive change (Primary Dx); Postconcussion syndrome 06/06/2025 Travel from Last 3 Months Social History [...] - - Weight 72.6 kg (160 lb) 06/06/2025 2:26 PM EDT Height 172.7 cm (5' 8 ) 06/06/2025 2:26 PM EDT Body Mass Index 24.33 06/06/2025 2:26 PM EDT Plan of Treatment Health Maintenance Due Date Last Done Comments Advance Care Planning 1960 Hepatitis C Virus Screening 1958 DTaP/Tdap/Td Vaccines (1 - Tdap) 1977 Pneumococcal Vaccines 50+ (1 of 2 - PCV) 1977 Zoster (Shingles) Vaccine (1 of 2) 1977 Colonoscopy 2003 Influenza Vaccine 06/27/2025 08/16/2023, , 09/06/2021, Additional history exists COVID-19 Vaccine ( - 2024- season) 2025 09/10/2023, 11/02/2021, 04/17/2021, Additional history exists RSV Vaccine 60 years and older and Patients (1 - 1-dose 75+ series) 2033 Hepatitis B Vaccines Aged Out No long er eligible based on patient's age to complete this topic Insurance MEDICARE PART A & B [facility] COMMERCIAL [facility] MIS TPL (AUTO/LIABILITY) Care Teams Senior J2Ee Developer Relationship Specialty Start Date End Date Tito Gilbert MD [address] [address] PCP - General 02/07/22
--- OUTSIDE RECORDS SUMMARY | 2025-08-20 17:26 | XMS_ITS | Patient Health Record ---
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 A/B & RSV BY PCR 01/16/2025 D Dimer 06/13/2025 Lipid Panel 12/31/2024 Amylase 01/16/2025 Amylase 01/20/2025 Amylase 02/05/2024 Amylase 05/14/2021 Lipase 01/16/2025 Lipase 01/20/2025 Lipase 02/05/2024 Lipase 05/14/2021 Blood Culture X2 01/16/2025 Urine Culture 01/16/2025 COVID-19 ID NOW ([place]) 01/16/2025 Next Appt Details Provider Name:Tito Krugerrne , 08/25/2025 10:00:00 AM, [address] [place] [address] [address], [place], [id number], Provider Name:Tito Dooley Vladimir , 01/01/2026 11:00:00 AM, [address] [place] [address] [address], [place], [id number], Insurance Providers Payer Name Payer Address Payer Phone Subscriber Number Group Number Insured Name Patient Relationship to Insured Coverage Start Date Coverage End Date MEDICARE NGS [address] [place] [address] [id number] Aneudy Story Self - patient is the insured [address] 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 Garcia 2013 radical lymph node dissection 1981 left orchiectomy 1981 Hospitalization History Reason Date(Month/Year) No history Pancreatitis 01/2021
== END 2025-08-20 15:40 | disposition home or self-care (01) ==
LOC: HO.HCC 14:59
PROVIDERS: PCP Internal Medicine Medical Oncology; Visit Provider Internal Medicine
DX: F11.20 Opioid dependence, uncomplicated (principal)
CPT/HCPCS: 99213